=== PATIENT | male | born 1935 | race Caucasian/White ===

== ENCOUNTER 2020-06-19 03:45 | Inpatient (IN) | payer MEDICARE, SELFPAY ==
[2020-06-19] VITALS (8 sets, daily range): BP systolic 102–123; BP diastolic 38–53; PULSE 57–87; RESP 14–20; TEMP 36.6–37.2; O2SAT 95–100; BMI 20.7; BMI 21.5
--- NOTE | 2020-06-19 03:50 | CT_ITS ---
STUDY: CT BRAIN WITHOUT CONTRAST REASON FOR EXAM: Male, 84 years old. confusion RADIATION DOSAGE (If Supplied By Facility): CTDIvol = ( 44.99 ) mGy, DLP = ( 1749.70 ) mGycm TECHNIQUE: Transaxial CT imaging of the brain was performed without administration of intravenous contrast material. Individualized dose optimization techniques were used for this CT. COMPARISON: No relevant priors. FINDINGS: Normal soft tissue structures. Normal calvarium. There is a cavum septum pellucidum and a cavum septum vergae, a minor developmental anomaly. There is mild cerebral atrophy with widening of the extra-axial spaces and ventricular dilatation. Normal white matter tracts of the cerebral hemispheres. Normal basal ganglia and thalami. Normal brainstem. Normal cerebellum. There is atherosclerotic calcification of the cavernous carotid arteries. There is no intracranial hemorrhage. There are no findings of an acute ischemic infarction. Normal visualized paranasal sinuses. CT/Brain/Head without Contrast IMPRESSION: Chronic involutional changes of the brain. No demonstrated acute intracranial process. Electronically Signed: Nino Boothe MD at 7:21 EDT , Service support ,
--- NOTE | 2020-06-19 03:50 | RAD_ITS ---
STUDY: X-RAY CHEST REASON FOR EXAM: Male, 84 years old. cough TECHNIQUE: 2 AP portal views were obtained. COMPARISON: None. FINDINGS: There is a right internal jugular Port-A-Cath with its tip overlying the superior vena cava. The lungs are hyperexpanded. There is diffuse interstitial prominence in the lungs which is probably chronic. There are no confluent pulmonary infiltrates. There is a 2.5 cm rounded density overlying the medial right upper lung field and there is a 4 cm density overlying the left upper lung field. The density on the right might represent a costal cartilage calcification, however, the density on the left is not overlying the expected region of costal cartilage and is more suspicious for a lung nodule. There is no demonstrated pleural abnormality. Normal size heart. Normal mediastinum and ranjeet. There is atherosclerotic calcification of the aortic arch. There are no demonstrated acute fractures or destructive bone lesions. There is no demonstrated abnormality of the visualized soft tissue structures of the upper abdomen. RAD/Chest 1 View (Portable) IMPRESSION: Hyperexpansion of the lungs and diffuse interstitial prominence, probably representing COPD. Tentative identification of upper lobe lung nodules bilaterally. Suggest comparison with previous studies if available. Otherwise, would suggest CT scan chest for further evaluation. No demonstrated acute pulmonary infiltrate. Port-A-Cath. Electronically Signed: Nino Boothe MD at 6:04 EDT , Service support ,
--- NOTE | 2020-06-19 03:50 | EKG12_ITS ---
Test Reason : DYSRYTHMIA Blood Pressure : / mmHG Vent. Rate : 064 BPM Atrial Rate : 064 BPM P-R Int : 168 ms QRS Dur : 152 ms QT Int : 484 ms P-R-T Axes : 026 -73 087 degrees QTc Int : 499 ms Sinus rhythm with occasional Premature ventricular complexes Left axis deviation Left bundle branch block Abnormal ECG Confirmed by LENA LONG, TERRIE ([id number]), advertising editor KATH SANDOVAL ([id number]) on 06/22/2020 8:48:55 AM Referred By: MARTELL Confirmed By:TERRIE PAREDES MD
--- NOTE | 2020-06-19 04:34 | ED.VIS.GEN ---
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 The patient has recently moved here from [place]. Is been living with family. His daughter found him in the kitchen tonight. He seemed confused when she was trying to talk to him. He was also very tearful. He was repeating himself. The patient did admit to taking an extra [place] tonight to help with his chronic back pain. He denies any fevers. He states over the past 2 or 3 days, he is just felt rundown worn out. He denies chest pain. He denies headache or visual change. He states he has been having a difficult time with his back pain. His Li catheter was recently replaced about 2 weeks ago. He is following with urology through the [facility] [place] system. Prior similar symptoms: No Recent Illness/Hospitalization: No Past Medical History - Allergies and Home Meds Allergies/Adverse Reactions: Allergies No Known Allergies Allergy (Verified 06/19/20 03:53) Primary Care Physician: Reyes Carmona MD [Primary Care Provider] - Prior records reviewed: Yes Past Medical History: - - COPD, hypertension, CHF, BPH Surgical History: colectomy Smoking Status: Current some day smoker Review of Systems General: Denies: Chills, Fever, Sweats Eyes: Denies: Visual changes - bilaterally, Diplopia ENT: Denies: Rhinorrhea, Sore throat Cardiovascular: Denies: Chest pain, Palpitations Respiratory: Denies: Dyspnea, Cough, Dyspnea on exertion Gastrointestinal: Denies: Abdominal pain, Nausea, Vomiting, Diarrhea, Melena, Hematochezia Genitourinary: Denies: Dysuria, Hematuria, Frequency Musculoskeletal: Denies: Back pain, Extremity Pain Skin: Denies: Rash, Wounds Neurological: Denies: Headache, Weakness, Numbness Physical Exam Vital Signs/Narrative: Vital Signs Temp Pulse Resp BP Pulse Ox 06/19/20 03:46 98.3 F 84 14 117/44 L 100 Inital Vital Signs reviewed: Yes General: Well nourished, Well developed, No Acute Distress Head: Normocephalic, Atraumatic Eyes: Perrl, EOMI ENT: Moist mucous membranes, No rhinorrhea Neck: Supple, Nontender Cardiovascular: Regular rate, Regular rhythm, No murmurs Respiratory: No distress, CTA bilaterally, Chest nontender Abdomen: Soft, Nontender, Nondistended, Normal bowel sounds, - - Ostomy is intact. Midline hernia which is reproducible and reducible. No significant tenderness Back: Nontender, Normal Inspection Extremities: Nontender, No edema Skin: Normal color, No rash Neurological: Alert, Oriented x3, Cranial nerves II-XII grossly intact, Normal Strength, Normal Sensation Psychological: Normal affect, Normal Mood Diagnostic/Tx/Re-eval Chest X-Ray - ED: 1 View, Read by ED Physician, Normal, Mediastinum, Bony Structures, Chronic Changes, No Infiltrates - Rhythm Strip Rhythm Strip: Sinus Rhythm Rate: 60 Ectopy: PVC(s) - EKG Initial EKG Interpretation: Sinus Rhythm, No Acute Injury Pattern Prior: No Prior - Medical Decision Making Patient presents with change in mental status. Metabolic work-up was pursued. Chest x-ray is obtained. Is read by both myself and the radiologist. There were changes consistent with COPD, but no focal infiltrative process or evidence of volume overload. EKG was obtained. Was sinus rhythm with a PVC. I have no old to compare to. There is left bundle branch block. Patient has not been having chest pain or dyspnea. Screening labs do show leukocytosis. Otherwise, labs are unremarkable. Noncontrast head CT is obtained. Patient does have indwelling Li, but his urine does appear to be positive. My suspicion is that his delirium is multifactorial. He is on opiate analgesics. He has an indwelling Li with infection. He is in a new environment and he appears to be thin and frail. At this point, I am going to treat the patient with IV antibiotics. Given his change in mental status, I do feel that he warrants admission. Impression 1. Urinary tract infection 2. Delirium ED Disposition - Plan for ED Patient: Referrals: Reyes Carmona MD [Primary Care Provider] -
[2020-06-19 04:44] LABS: Absolute Lymphocyte Count 0.97 X10^3/uL (0.83-4.51); Absolute Neutrophil Count 10.1 X10^3/uL (2.0-7.7); Basophil# 0.05 X10^3/uL; Basophil% 0.4 % (0-1); Eosinophil# 0.23 X10^3/uL; Eosinophils% 1.8 % (0-5); Hematocrit 33.3 % (40-54); Hemoglobin 10.9 g/dL (13.0-16.5); Lymphocyte # 0.97 X10^3/ul (0.83-4.51); Lymphocyte % 7.6 % (19-41); Mean Corp Hgb Conc 32.7 g/dL (32-36); Mean Corpuscular Hgb 32.2 pg (27.0-32.0); Mean Corpuscular Volume 98.2 fL (80-94); Mean Platelet Vol. 9.7 fl (6.2-12.0); Monocyte# 1.23 X10^3/uL; Monocyte% 9.7 % (0-10); NRBC Flagged by Analyzer 0 % (0-5); Neutrophil # 10.13 X10^3/uL (2.7-7.7); Neutrophil % 79.9 % (47-70); Platelet Count 268 K/mm3 (150-450); RBC Distribution Width CV 13.2 % (11.6-14.6); RBC Distribution Width SD 47.1 fl (35.1-43.9); Red Blood Count 3.39 M/mm3 (4.6-6.2); White Blood Count 12.7 K/mm3 (4.4-11.0)
[2020-06-19 04:53] LABS: International Normalized Ratio 1.1; Prothrombin Time (Protime)PT. 13.7 SECONDS (11.7-14.9)
[2020-06-19 04:59] LABS: Alcohol, Blood (Medical)-Serum < 3.0 mg/dL
[2020-06-19 05:01] LABS: BNP,B-Type NATRIURETIC PEPTIDE 77.4 pg/mL (0-100)
[2020-06-19 05:02] LABS: ALB/GLOB Ratio 0.7 RATIO (0.9-2.4); AST(SGOT) 30 U/L (15-37); Alanine Aminotransfer ALT/SGPT 24 U/L (16-61); Albumin, Serum 2.7 g/dL (3.2-5.0); Alkaline Phosphatase 90 U/L (45-117); Anion Gap 5 (5-15); BUN 14 mg/dL (7-18); BUN/Creat Ratio 17.9 RATIO (10-20); Calcium,Total 9.1 mg/dL (8.5-10.1); Chloride 95 mmol/L (98-107); Creatinine, Serum 0.78 mg/dL (0.70-1.30); EST Glomerular Filtration Rate 101 mL/min (>60); Est Glom Filt Rate - Afr Amer 122 mL/min (>60); Estimated Creatinine Clearance 54.21 ml/min; Globulin 4.1 g/dL (2.2-4.2); Glucose 84 mg/dL (74-106); Potassium 3.7 mmol/L (3.5-5.1); Protein, Total 6.8 g/dL (6.4-8.2); Sodium Level 132 mmol/L (136-145)
[2020-06-19 05:47] LABS: Mucous, Urine 0 SEEN /hpf (<or=2+); Squamous Epithelial Cells - UA 0 SEEN /hpf (0-5)
[2020-06-19 05:48] LABS: Color, Urine Yellow (Yellow); Glucose, Dipstick Normal (Normal); Ketone-Dipstick Negative (Negative); Leukocyte Esterase-Dipstick 500 /ul (Negative); Nitrite-Dipstick Positive (Negative); Occult Blood-Urine 150 /ul (Negative); Protein-Dipstick 30 mg/dl (Negative); Urine Bilirubin Dipstick Negative (Negative); Urine Clarity Sl. Cloudy (Clear); Urine Urobilinogen 1 mg/dl (Normal)
[2020-06-19 05:55] LABS: Bacteria 4+ /hpf (None Seen); Red Blood Cells-Urine 25-50 SEEN /hpf (0-5); White Blood Cells 25-50 SEEN /hpf (0-5)
[2020-06-19] MEDS: Ceftriaxone 1 GM/50 ML BAG IV (06:19)
--- NOTE | 2020-06-19 06:34 | CT_ITS ---
We are attempting to reach an attending provider to discuss findings. An addendum with communication details will be sent when the communication is complete. STUDY: CT CHEST, ABDOMEN T PELVIS WITH CONTRAST REASON FOR EXAM: Male, 84 years old. Colon cancer RADIATION DOSAGE (If Supplied By Facility): CTDIvol = ( 12.54 ) mGy, DLP = ( 865.35 ) mGycm TECHNIQUE: Transaxial imaging was performed following intravenous administration of IV 75mL Isovue-370. Multiplanar coronal and sagittal images were reformatted. Individualized dose optimization techniques were used for this CT. COMPARISON: No relevant priors. FINDINGS: CHEST There are scattered emphysematous blebs throughout the lungs. There is a hyperinflated appearance of the right lung. There is a age indeterminant patchy focus of density within the left lung base that emanates from the inferior aspect of the hilum and a almost masslike appearance, see image #85 measuring 2.3 x 2.0 cm with peribronchial inflammatory change. There is a trace amount of left pleural thickening. There is no demonstrated pleural abnormality. There is mild cardiac enlargement. There is calcification of the left anterior descending coronary artery. There is a precarinal lymph node measuring 1.5 cm. In AP window lymph node measuring 1.5 cm. There is a subcarinal lymph node measuring 2 cm. Normal hilar regions. Normal unenhanced pulmonary arteries. The ascending thoracic aorta measures 2.5 x 3.9 cm. The aorta is tortuous partially calcified. The descending thoracic aorta measures 2.7 x 2.9 cm. The bones are fairly osteopenic. There is multilevel osteophytosis bridging osteophytosis. There is a visualized benign-appearing right renal cyst measuring 2.7 x 2.7 cm. The remainder of the upper abdomen and pelvis will be discussed on the dedicated CT scan of the abdomen and pelvis. ABDOMEN There is a focus of left perihilar infiltrate atelectasis and a potentially atypia. There is borderline cardiac enlargement there is coronary calcification. There is mild prominence of the visualized portal vein measuring up to 1.2 cm. No significant anterior extra hepatic ductal dilatation. Normal gallbladder and extrahepatic biliary system. Normal spleen. There is trace distention of the pancreatic duct. Otherwise the pancreas appears grossly normal. Normal bilateral adrenal glands. There is mild right hydronephrosis. There is distention of the ureter to the level of the bladder. There is an upper pole right renal cyst with benign features measuring 2.7 x 2.7 cm. There is a lower pole cyst measuring 3.5 x 3.6 cm. There is a right-sided peripelvic cyst measuring 2.2 x 1.9 cm. There is a left-sided peripelvic cyst measuring 6.4 x 5.0 x 5.0 cm. There is no visualized hydronephrosis. The stomach is decompressed. There are multiple distended loops of small bowel within the right lower quadrant, see image #19. This is associated with a visualized rest of the bowel around the mesentery compatible with volvulus see images 61 through 95. There is a rightward twist and distention of the proximal small bowel. There is a relative decompressed appearance of the distal small bowel. The visualized postoperative change in the right lower quadrant that may involve the colon and/or distal small bowel. There is crowding in the vicinity. There is a left lower quadrant colostomy which the descending colon partially filled with stool extends. There is crowded in the left side of the abdomen. There is moderate stool in the ascending colon and transverse colon carotid in the right side of the abdomen. The appendix is visualized and appears normal. There is diffuse atherosclerotic calcification of the abdominal aorta with elongation and tortuosity, but without a demonstrated aneurysm. Normal inferior vena cava. There are multiple low attenuating lymph nodes in the retroperitoneum on the right side of the aorta measuring 2.8 x 1.9 cm collectively and on the left side measuring 1.7 x 2.0 cm. These extend to the level of the bifurcation. Abdominal wall is protruding at the level of the distention of the small bowel. Small bowel at this level measures up to 4 cm. There are diffuse degenerative changes of the visualized lumbar spine. PELVIS The bladder is decompressed around a Li catheter. There is an ill-defined appearance of the bladder and bladder wall. The bladder wall may be thickened up to 1.7 cm. There is hyperdensity in and about the bladder which may represent partial calcification. There are calcifications within the base of the pelvis possibly associated with the prostate although there is limited distinguish fatty planes between the bladder and the prostate tissue or remaining tissue. There is trace free fluid within the pelvis. There is presacral stranding and postoperative change status post colectomy. There is a low surgical clip suggesting resection of the rectum and sigmoid colon. There is a mid gut volvulus and distention of the right lower quadrant small bowel. There is moderate stool within the colon. There is a left lower colostomy. There is a minimal amount of free fluid in the pelvis. There is diffuse atherosclerotic calcification of the pelvic arteries. There is a left lower colostomy. In the midline and there are distended loops of small bowel that likely are visible protruding in the abdomen. There is bony osteopenia. There is multilevel disc space narrowing and endplate sclerosis spondylosis. At the level of L2-L3, L3-L4 L4-L5 there is broad disc bulge with moderate to severe neural foramina narrowing moderate central stenosis. At L5-S1 there is no significant neural foramina narrowing there is facet arthropathy. There is degenerative change of the SI joints. CT/CT Chest, Abd, Pel w/Contrast IMPRESSION: CT chest: Pulmonary emphysema chronic obstructive pulmonary disease abnormal appearing left infrahilar consolidation and/or developing mass with associated inflammatory change or posterior instructed inflammatory change. A comparison to prior study would be very helpful if available. Coronary artery disease borderline cardiomegaly. CT abdomen and pelvis: Mild right hydronephrosis distention of the right ureter possibly associated with abnormal thick walled appearance of the bladder for which cystitis could be considered. Bilateral benign-appearing renal cysts. There is a poor distinction between the prostate calcified tissue and the base of the bladder. Recommend correlation with clinical history and laboratory values. There is a visualized twist around the mid mesentery suggesting age indeterminate mid gut volvulus with distended small bowel within the right to midline abdomen measuring up to 4 cm suspicious for small bowel obstruction or high-grade partial small bowel obstruction. There is distention of the small bowel loops in this vicinity in the right lower quadrant with decompressed terminal ileum. There is moderate stool within the colon. There is a left lower colostomy status post partial colectomy. There is abnormal periaortic lymphadenopathy suggesting metastatic disease or ongoing inflammatory change could be involving the possibility of the chest, bowel or bladder. Multilevel degenerative change of the thoracolumbar spine. Atherosclerotic disease of the aorta. Electronically Signed: Rebekah Matthews MD at 10:10 EDT Tel , Service support ,
--- NOTE | 2020-06-19 06:34 | NURSING ---
MED SURG WHITE UTI, DELIRIUM
--- NOTE | 2020-06-19 07:00 | PCM.HP.STD ---
Problem List (1) Acute encephalopathy Status: Acute (2) Complicated UTI (urinary tract infection) Status: Acute (3) Indwelling Campbell catheter present Status: Chronic (4) Abdominal mass Status: Chronic Qualifiers: Abdominal location: unspecified location Qualified Code(s): R19.00 - Intra-abdominal and pelvic swelling, mass and lump, unspecified site (5) History of colorectal cancer Status: Chronic (6) Chronic anemia Status: Chronic (7) Chronic obstructive pulmonary disease (COPD) Status: Chronic Qualifiers: COPD type: unspecified COPD Qualified Code(s): J44.9 - Chronic obstructive pulmonary disease, unspecified (8) HTN (hypertension) Status: Chronic Qualifiers: Hypertension type: essential hypertension Qualified Code(s): I10 - Essential (primary) hypertension (9) HLD (hyperlipidemia) Status: Chronic Qualifiers: Hyperlipidemia type: unspecified Qualified Code(s): E78.5 - Hyperlipidemia, unspecified (10) Tobacco use Status: Chronic (11) Chronic back pain Status: Chronic Qualifiers: Back pain location: back pain in unspecified location Back pain laterality: unspecified Qualified Code(s): M54.9 - Dorsalgia, unspecified; G89.29 - Other chronic pain (12) Severe protein-calorie malnutrition Status: Chronic History of Present Illness Date of Admission: 06/19/20 Chief Complaint: Confusion The patient is an 84 y/o M recent moved to live with his daughter from [place] ~ 1 month prior to current presentation w/ PMHx: Hx Colorectal cancer s/p colectomy w/ ostomy 2013, 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 Patient reports increased fatigue, malaise over the last 2-3 days. Patient also over the last 2 weeks has developed bilateral lower extremity significant pitting edema with discomfort to his legs. His daughter notes that when he called her to move back to [place] he specifically stated he wanted to come back to [place] and felt like he was going to . Per his daughter's report he was diagnosed with some kind of stomach mass approximately 2 years prior and was not felt a candidate for removal and she has requested records from [place] but is yet to be given these records. Work-up in the ED included T 98.3, HR 84, BP 117/44, RR 14, 100% on RA, CBC with WBC 12.7, hemoglobin 10.9, platelet 268 with left shift, unremarkable PT and INR, CMP with sodium 132, chloride 95 otherwise unremarkable, BNP 77.4, ethyl alcohol level less than 3, lactic acid 2.0, blood culture x2 pending per ED, rapid Covid antigen negative, UA notable w/ pending UCx, CXR and CT Head pending upon evaluation. In the ED patient administered IV rocephin and IVFs. Past Medical History Past Medical History (Chronic Problems): Chronic Problems Indwelling Campbell catheter present (Chronic) Abdominal mass (Chronic) History of colorectal cancer (Chronic) Chronic anemia (Chronic) Chronic obstructive pulmonary disease (COPD) (Chronic) HTN (hypertension) (Chronic) HLD (hyperlipidemia) (Chronic) Tobacco use (Chronic) Chronic back pain (Chronic) Severe protein-calorie malnutrition (Chronic) Allergies No Known Allergies Allergy (Verified 06/19/20 03:53) Home Medications: Ambulatory Orders Medication Instructions Recorded Atorvastatin Calcium [Lipitor] 40 mg PO QHS 06/19/20 Carvedilol [Coreg] 3.125 mg PO BID 06/19/20 Fluticasone/Umeclidin/Vilanter 1 each PO DAILY 06/19/20 [Trelegy Ellipta 100-62.5-25] Furosemide [Lasix] 20 mg PO DAILY 06/19/20 Gabapentin [Neurontin] 300 mg PO BID 06/19/20 Hydrocodone/Acetaminophen 1 each PO Q8H PRN PRN 06/19/20 [Hydrocodon-Acetaminophen 5-325] Potassium Chloride 10 meq PO DAILY 06/19/20 Vit C/E/Zn/Coppr/Lutein/Zeaxan 1 each PO BID 06/19/20 [Preservision Areds 2 Softgel] Surgical History: colectomy - Colectomy with ostomy. Psychiatric History: No pertinent psych hx Lives: With Family - Currently living with his daughter, recently moved from [place] approximately 1 month prior to current presentation. Smoking Status: Current every day smoker - Patient with ongoing 1.5 pack/day cigarette tobacco usage ongoing x > 50 years. Tobacco Use: Cigarettes Alcohol: None Drugs: None - *Family History Maternal History Items: - - Maternal family history of significant neuropathy, lived to the age of 100. Paternal History Items: - - Paternal family history of aneurysm. Review of Systems Constitutional: Reports: Anorexia, Malaise, Weakness, Fatigue. Denies: Chills, Fever, Weight Change HEENT: Denies: Head Aches, Sinus Congestion, Sinus Drainage Cardiovascular: Reports: Edema. Denies: Chest Pain, Chest Pressure, Chest Tightness, Orthopnea, Palpitations, Syncope Respiratory: Reports: Shortness of breath upon exertion. Denies: Cough, Shortness of Breath, Shortness of breath at rest, Sputum production Gastrointestinal: Reports: Abdominal Pain. Denies: Nausea, Vomiting Genitourinary: Reports: Retention. Denies: Dysuria Musculoskeletal: Reports: Back Pain, Joint Pain. Denies: Joint Tenderness Skin: Denies: Rash, Wounds Neurological: Reports: Confusion. Denies: Focal weakness, Numbness, Tingling Psychiatric: Denies: Anxiety, Depression, Homicidal Ideations, Suicidal Ideations Hematologic/ Lymphatic: Denies: Easy Bruising, Easy Bleeding VTE Information - Inpt Only VTE Present on Admission: No VTE Mechan Device Prophylaxis: SCD's VTE Pharm Prophylaxis ordered?: Yes Patient Problems: Active and Suspected Problems Acute encephalopathy (Acute) Complicated UTI (urinary tract infection) (Acute) Subjective: Patient laying in the ED bed, lethargic, fatigued. Objective: Physical Examination: General: Patient very fatigued and lethargic, does awaken but not alert and not able to answer orientation questions, laying in the ED bed. Skin: normal color, turgor, no icterus, cyanosis occasional staged ecchymoses. HEENT: AT/NC, EOMI, PERRLA, dry MM, no carotid bruits or JVD noted. Lungs: CTA bilaterally, moderate effort, mild decrease BL bases, no rales, ronchi or wheezing. Heart: Regular rate and rhythm; no gallop, rub audible. Abdomen: soft, cachectic habitus, no grimacing with palpation of his abdomen, no distention specifically, ostomy in place with appropriate output in bag, mildly hyperactive bowel sounds, no obvious HSM. Extremities: no cyanosis or clubbing, significant pedal to knee 3+ pitting edema, tender to palpation. Neurological: Patient very fatigued and lethargic, does awaken but not alert and not able to answer orientation questions, laying in the ED bed; cognitive function not baseline intact; pupils equally reactive to light and accomodation; cranial nerves difficult to assess given lethargy, moving extremities to stimuli, strength severely globally decreased secondary to acute presentation. Psychiatric: affect appears flat, lethargic, no acute evidence of depressive or anxiety feelings. - Physical Exam Vitals/I&O's: Vital Signs Temp Pulse Resp BP Pulse Ox 98.4 F 57 L 15 103/48 L 97 06/19/20 05:44 06/19/20 05:44 06/19/20 05:44 06/19/20 05:44 06/19/20 05:44 Oxygen Delivery Method Room Air Weight: 148 lb 5.938 oz Body Mass Index (BMI) 20.7 Microbiology Past 72 Hours 06/19/20 04:00 Nasal Secretion SARS-CoV-2 Antigen (Rapid) - Final Laboratory Results 06/19/20 04:30: WBC 12.7 H, RBC 3.39 L, Hgb 10.9 L, Hct 33.3 L, MCV 98.2 H, MCH 32.2 H, MCHC 32.7, RDW Std Deviation 47.1 H, RDW Coeff of Harjinder 13.2, Plt Count 268, MPV 9.7, Immature Gran % (Auto) 0.600, Neut % (Auto) 79.9 H, Lymph % (Auto) 7.6 L, Pepin % (Auto) 9.7, Eos % (Auto) 1.8, Baso % (Auto) 0.4, Absolute Neuts (auto) 10.1 H, Absolute Lymphs (auto) 0.97, Nucleated RBC % 0 06/19/20 04:30: PT 13.7, INR 1.1 06/19/20 04:30: Sodium 132 L, Potassium 3.7, Chloride 95 L, Carbon Dioxide 32.0, Anion Gap 5, BUN 14, Creatinine 0.78, Estim Creat Clear Calc 54.21, Est GFR (MDRD) Af Amer 122, Est GFR (MDRD) Non-Af 101, BUN/Creatinine Ratio 17.9, Glucose 84, Calcium 9.1, Total Bilirubin 0.50, AST 30, ALT 24, Alkaline Phosphatase 90, Total Protein 6.8, Albumin 2.7 L, Globulin 4.1, Albumin/Globulin Ratio 0.7 L 06/19/20 04:30: Lactic Acid 2.0 06/19/20 04:30: B-Natriuretic Peptide 77.4 06/19/20 04:30: Ethyl Alcohol < 3.0 06/19/20 05:42: Urine Color Yellow, Urine Clarity Sl. Cloudy, Urine pH 8.0, Ur Specific [place] 1.010, Urine Protein 30 H, Urine Glucose (UA) Normal, Urine Ketones Negative, Urine Occult Blood 150 H, Urine Nitrite Positive H, Urine Bilirubin Negative, Urine Urobilinogen 1 H, Ur Leukocyte Esterase 500 H, Urine RBC 25-50 SEEN, Urine WBC 25-50 SEEN, Ur Squamous Epith Cells 0 SEEN, Urine Bacteria 4+, Urine Mucus 0 SEEN Current Medications Ceftriaxone Sodium (Rocephin) 1 gm in 50 mls @ 100 mls/hr IV X1 ONE Stop: 06/19/20 06:28 Assessment/Plan All Active Problems Acute encephalopathy (Acute) Complicated UTI (urinary tract infection) (Acute) The patient is an 84 y/o M recent moved to live with his daughter from [place] ~ 1 month prior to current presentation w/ PMHx: Hx Colorectal cancer s/p colectomy w/ ostomy 2013, 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 1. 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 Will admit to [facility] upon ED evaluation remarkable, pending UCx, will change campbell catheter upon admission, continue IVFs, monitor I/Os, continue IV Rocephin w/ transition as able pending sensitivities and speciation. Bld cx x 2 obtained in the ED. 2. Unclear abdominal mass per patient/daughter report with new onset bilateral lower extremity pitting edema: Notable concern for metastatic disease as etiology, discussed with ED physician and will obtain CT chest, abdomen and pelvis with IV contrast given concurrent noted #3 lung nodules incidentally. Daughter has been requesting records from [place] however these not been successfully obtained therefore will attempt request via hospital. Do suspect underlying metastatic disease. Duplex US pending. 4. Incidental Lung Nodule: CXR w/ incidental upper lobe lung nodules BL, pending CTPA given concern for abdominal mass. 5. Hx Colorectal cancer: s/p colectomy w/ ostomy placement 2013, remission status, will continue routine ostomy care. 6. Macrocytic anemia: Unclear if chronic as no comparison labs, admission hemoglobin 10.9, MCV 98.2, iron panel, ferritin, vitamin B12 and folic acid levels pending. 7. Chronic COPD: We will temporarily hold patient home inhaler and transition to ATC duonebs, PRN albuterol, HOB, IS parameters. 8. Hypertension: Continue home regimen including Coreg, Lasix with hold parameters, PRN hydralazine. 9. Hyperlipidemia: Continue home statin regimen. 10. Tobacco Abuse: Encouraged cessation, inpatient consultation per RT, NR if desired. 11. Chronic back pain w/ neuropathy: Recent pain regimen start ~ 3 days prior to current presentation, more confused since onset complicated by #1. Given current confusion we will hold recently initiated narcotic. 12. Severe protein calorie malnutrition: Evidenced by habitus, obvious muscle and fat loss, cachectic, nutrition consulted. 13. DVT prophylaxis: SCDs, Lovenox. 14. CODE status: Patient HCPOA is his daughter Jaime Cueto and unclear if living will is in place. Discussed CODE status at length including difference between FULL code, DNR-CCA and DNR-CC status with his daughter who is present but not specifically his healthcare power of rn documentation and she notes following these discussions that he has been a full code. Discussed current presentation and concern for likely metastatic cancer in addition to acute presentation for complicated UTI. Family is amenable to palliative consultation. Advanced Care Planning Face to Face Time: 16 minutes. Inpatient E&M: 57905 Init Hosp L3 Procedures: 64862 Advncd Care Plan 30 Min
--- NOTE | 2020-06-19 07:14 | VDLE_ITS ---
Reason For Study: Pain RIGHT LEFT GSV is normal. GSV is normal. CFV is compressible, spontaneous, phasic, CFV is compressible, spontaneous, phasic, competent and demonstrates normal competent, and demonstrates normal augmentation. augmentation. FV is compressible, spontaneous, phasic, FV is compressible, spontaneous, phasic, competent and demonstrates normal competent and demonstrates normal augmentation. augmentation. POP V is compressible, spontaneous, phasic, POP V is compressible, spontaneous, phasic, competent and demonstrates normal competent and demonstrates normal augmentation. augmentation. T/P Trunk is compressible. T/P Trunk is compressible. PTV is compressible. PTV is compressible. RT PerV is compressible. LT PerV is compressible. Procedure This is a venous duplex using B-mode, color flow and spectral Doppler. Exam performed portable in patient room. A preliminary report was called and/or faxed to [facility]. VL/Venous Duplex US - Eliu Extrem Interpretation Summary No evidence for acute deep venous thrombosis bilateral lower extremities with p atent and compressible bilateral great saphenous veins. Ordering Physician: Summer Carpio Referring Physician: Ryees Carmona Performed By: Jodie Mera RVT
[2020-06-19 07:44] LABS: Magnesium 2.3 mg/dL (1.6-2.6); Phosphorus 2.3 mg/dL (2.5-4.9)
--- NOTE | 2020-06-19 07:56 | PCM.PN.BLA ---
Progress Note Patient is an 84-year-old gentleman with chronic indwelling Li catheter admitted with altered mental status work-up was consistent with acute complicated UTI admitted to regular nursing for further management. Patient seen and examined. His initial assessment including history and physical diagnostic database management specialist orders reviewed will follow. STROKE Vital Signs/Narrative: Vital Signs Temp Pulse Resp BP Pulse Ox 06/19/20 07:12 97.8 F 58 L 20 H 123/49 H 100 06/19/20 06:27 98.5 F 62 18 102/49 L 98 06/19/20 05:44 98.4 F 57 L 15 103/48 L 97
[2020-06-19] MEDS: 0.9% Saline Lock 10 ML Syringe IV (08:38)
[2020-06-19] MEDS: 0.9% Normal Saline 1,000 ML 100 ML IV ×2 (08:39→19:27)
[2020-06-19 08:43] LABS: Reflex Lactate? Y
[2020-06-19] MEDS: Gabapentin 300 MG Capsule PO (09:18)
[2020-06-19] MEDS: Potassium Chloride Oral Tablet 10 MEQ PO (09:19)
[2020-06-19] MEDS: Enoxaparin 40 MG/0.4 ML Syringe SC (09:21)
[2020-06-19] MEDS: Famotidine 20 MG Tablet PO (09:23)
[2020-06-19] MEDS: Carvedilol 3.125 MG TABLET PO (09:23)
[2020-06-19] MEDS: Furosemide 20 MG Tablet PO (09:23)
[2020-06-19] MEDS: HYDROcodone Bitartrate/Apap 5/325 Tablet PO ×2 (09:33→21:02)
[2020-06-19 09:35] LABS: Lactic Acid 0.7 mmol/L (0.4-1.9)
[2020-06-19] MEDS: Ipratropium/Albuterol Sulfate 3 ML AMPUL.NEB INHALATION ×2 (11:41→19:24)
--- NOTE | 2020-06-19 12:11 | NT.THERAPY_ITS ---
Nutrition Therapy Report - History Nutrition Services has been consulted to:: Manage nutrient details of diet order Current diet / nutrition support order:: Cardiac; Ensure Enlive 120 ml 4x/day medpass - Anthropometric Measurements Height:: 5 ft 9 in Weight:: 66.1 kg Body Mass Index (BMI):: 21.5 - Relevant Labs Relevant Labs:: WBC 12.7 K/mm3 (4.4-11.0) H 06/19/20 04:30 RBC 3.39 M/mm3 (4.6-6.2) L 06/19/20 04:30 Hgb 10.9 g/dL (13.0-16.5) L 06/19/20 04:30 Hct 33.3 % (40-54) L 06/19/20 04:30 MCV 98.2 fL (80-94) H 06/19/20 04:30 MCH 32.2 pg (27.0-32.0) H 06/19/20 04:30 RDW Std Deviation 47.1 fl (35.1-43.9) H 06/19/20 04:30 Neut % (Auto) 79.9 % (47-70) H 06/19/20 04:30 Lymph % (Auto) 7.6 % (19-41) L 06/19/20 04:30 Absolute Neuts (auto) 10.1 X10^3/uL (2.0-7.7) H 06/19/20 04:30 Sodium 132 mmol/L (136-145) L 06/19/20 04:30 Chloride 95 mmol/L (98-107) L 06/19/20 04:30 Phosphorus 2.3 mg/dL (2.5-4.9) L 06/19/20 04:30 Albumin 2.7 g/dL (3.2-5.0) L 06/19/20 04:30 Albumin/Globulin Ratio 0.7 RATIO (0.9-2.4) L 06/19/20 04:30 - Assessment Food / Nutrition-Related History:: States living w/ roomate- unable to cook self meals. States requires help from roomate/neighbors to prepare meals. Able to prepare banana w/ milk or soup himself. Question pt living situation per EMR reported moved to live with his daughter from [place] ~ 1 month prior to current presentation. States decreased intake w/ no appetite- consuming 0-2 meals per day. Will try to eat at least b-fast & sometimes 2nd meal L/D. States chewing difficulty d/t poor dentition- consuming soft foods at home, unable to tolerate meats (chicken/pork/beef). Notes no swallowing difficulty. Experiencing nausea x 2-3 weeks. Notes wt prior to dx CA 255#- wt x 1 year 134#, w/ wt maintaining x 6 months at ~144#.+NFPE- severe temporal scooping/depression, severe orbital bone depression/hollow look, severe clavicle bone protrusion, moderate depression of interosseous muscle of R hand. - Nutrition Diagnosis Problem / Etiology / Signs & Symptoms (PES):: Severe malnutrition in the context of chronic condition/illness RT inadequate oral intake & inability to prepare own meals AEB pt reports consuming </=50% energy intake compared to estimated energy needs > 1 month, severe temporal scooping/depression, severe orbital bone depression/hollow look, severe clavicle bone protrusion, moderate depression of interosseous muscle of R hand. Evidence of Malnutrition Exists:: Yes Severe PCM:: Chronic Illness - Nutrition Intervention Nutrition Prescription:: 0818-5738 calories. 65-75 g protein. 4745-6072 ml fluid - Food / Nutrient Delivery Interventions Nutrition support ordered as / adjusted to:: Will provide Regular- no added salt diet w/ soft & bite sized textures, regular liquids. Will provide ONS ensure pudding/magic cup w/ meals & continue Ensure Enlive 120 ml w/ medpass. - MNT Monitoring Further MNT monitoring and evaluation required?: Yes MNT Follow-up in:: 3-5 days
[2020-06-19] MEDS: Menthol/Lanolin/Calamine/Znox 113 GM Tube 1 APPLIC TOPICAL ×2 (15:24→21:07)
[2020-06-20] VITALS (9 sets, daily range): BP systolic 99–136; BP diastolic 38–58; PULSE 61–85; RESP 16–20; TEMP 36.8–37.8; O2SAT 95–99
[2020-06-20] MEDS: 0.9% Normal Saline 1,000 ML 100 ML IV ×2 (05:03→15:54)
--- NOTE | 2020-06-20 06:32 | RAD_ITS ---
STUDY: X-RAY - ABDOMEN/PELVIS REASON FOR EXAM: Male, 84 years old. Small bowel obstruction TECHNIQUE: AP supine and upright views of the abdomen and pelvis. COMPARISON: CT dated 06/19/20 FINDINGS: There is no bowel obstruction. There is air and stool to the level of the rectum. There is stable constipation. There is no free air. The visualized osseous structures are within normal limits. RAD/Abd Inc Decub and/or Erect IMPRESSION: No bowel obstruction. Stable constipation. Electronically Signed: Gary Miles MD at 13:31 EDT Tel , Service support ,
[2020-06-20] MEDS: 0.9% Saline Lock 10 ML Syringe IV ×2 (07:09→07:42)
[2020-06-20] MEDS: Menthol/Lanolin/Calamine/Znox 113 GM Tube 1 APPLIC TOPICAL ×2 (07:09→21:57)
[2020-06-20 07:18] LABS: Absolute Lymphocyte Count 0.78 X10^3/uL (0.83-4.51); Absolute Neutrophil Count 6.8 X10^3/uL (2.0-7.7); Basophil# 0.05 X10^3/uL; Basophil% 0.6 % (0-1); Eosinophil# 0.25 X10^3/uL; Eosinophils% 2.8 % (0-5); Hemoglobin 9.5 g/dL (13.0-16.5); Lymphocyte # 0.78 X10^3/ul (0.83-4.51); Lymphocyte % 8.8 % (19-41); Mean Corp Hgb Conc 32.8 g/dL (32-36); Mean Corpuscular Hgb 32.6 pg (27.0-32.0); Mean Corpuscular Volume 99.7 fL (80-94); Mean Platelet Vol. 9.9 fl (6.2-12.0); Monocyte% 10.2 % (0-10); NRBC Flagged by Analyzer 0 % (0-5); Neutrophil # 6.83 X10^3/uL (2.7-7.7); Neutrophil % 77.1 % (47-70); Platelet Count 224 K/mm3 (150-450); RBC Distribution Width CV 13.4 % (11.6-14.6); Red Blood Count 2.91 M/mm3 (4.6-6.2); White Blood Count 8.9 K/mm3 (4.4-11.0)
[2020-06-20] MEDS: Ipratropium/Albuterol Sulfate 3 ML AMPUL.NEB INHALATION ×2 (07:25→22:42)
[2020-06-20] MEDS: Morphine 2 MG/ML Syringe IV ×2 (07:42→15:54)
[2020-06-20 07:55] LABS: ALB/GLOB Ratio 0.6 RATIO (0.9-2.4); AST(SGOT) 18 U/L (15-37); Alanine Aminotransfer ALT/SGPT 16 U/L (16-61); Albumin, Serum 2.1 g/dL (3.2-5.0); Alkaline Phosphatase 69 U/L (45-117); Anion Gap 5 (5-15); BUN 11 mg/dL (7-18); BUN/Creat Ratio 18.7 RATIO (10-20); Calcium,Total 8.2 mg/dL (8.5-10.1); Chloride 106 mmol/L (98-107); Creatinine, Serum 0.59 mg/dL (0.70-1.30); EST Glomerular Filtration Rate 140 mL/min (>60); Est Glom Filt Rate - Afr Amer 169 mL/min (>60); Estimated Creatinine Clearance 54.62 ml/min; Globulin 3.3 g/dL (2.2-4.2); Glucose 69 mg/dL (74-106); Magnesium 2.2 mg/dL (1.6-2.6); Potassium 3.1 mmol/L (3.5-5.1); Protein, Total 5.4 g/dL (6.4-8.2); Sodium Level 139 mmol/L (136-145)
--- NOTE | 2020-06-20 09:10 | NURSING ---
voicemail message left at phone number of Ana regarding pt PCP office phone number that pt saw in [place], return phone number to [facility] provided.
--- NOTE | 2020-06-20 09:34 | NURSING ---
MR released faxed to Dr. Kiley Lynn office in [place]
[2020-06-20] MEDS: Gabapentin 300 MG Capsule PO ×2 (09:36→15:55)
[2020-06-20] MEDS: Lidocaine 5% Patch 1 PATCH TOPICAL (09:36)
[2020-06-20] MEDS: Carvedilol 3.125 MG TABLET PO ×2 (09:36→21:57)
[2020-06-20] MEDS: Furosemide 20 MG Tablet PO (09:37)
[2020-06-20] MEDS: Potassium Chloride Oral Tablet 10 MEQ PO (09:37)
[2020-06-20] MEDS: Enoxaparin 40 MG/0.4 ML Syringe SC (09:37)
[2020-06-20] MEDS: Famotidine 20 MG Tablet PO ×2 (09:37→21:58)
[2020-06-20] MEDS: HYDROcodone Bitartrate/Apap 5/325 Tablet PO ×2 (09:40→22:08)
[2020-06-20] MEDS: Senna/Docusate Sodium 1 Tablet 2 TABLET PO (09:40)
[2020-06-20] MEDS: Ceftriaxone 1 GM/50 ML BAG IV (09:40)
[2020-06-20] MEDS: Lidocaine 5% Patch 2 PATCH TOPICAL (10:39)
--- NOTE | 2020-06-20 11:22 | PCM.PN.HOSP ---
Patient Problems: Active and Suspected Problems Acute encephalopathy (Acute) Complicated UTI (urinary tract infection) (Acute) Subjective: Doing well, complaining of some low back pain. Does not know where he is but he knows that it is 2020. Vitals/I&O's: Vital Signs Temp Pulse Resp BP Pulse Ox 98.3 F 67 18 116/56 L 98 06/20/20 09:34 06/20/20 09:34 06/20/20 09:34 06/20/20 09:34 06/20/20 09:34 Oxygen Delivery Method Room Air Weight: 149 lb 7.574 oz Body Mass Index (BMI) 21.5 Intake and Output for Last 24 Hours 06/18/20 06/19/20 06/20/20 23:59 23:59 23:59 Intake Total 1900 / 1900 1471.67 / 1471.67 Output Total 1750 / 1750 550 / 550 Balance 150 / 150 921.67 / 921.67 General: Alert, Cooperative, No apparent distress, - - Oriented x2 HEENT: Atraumatic, PERRLA, EOMI, Normocephalic Oral: Moist Mucosa Neck: Supple, No JVD Lungs: Clear to auscultation, Normal air movement, No rhonchi, No wheeze, No rales Cardiovascular: Regular rate, Regular Rhythm, Normal S1, Normal S2, No murmurs Abdomen: Soft, Non Tender, Non-Distended, No Hepato-splenomegaly Extremities: No edema, Capillary Refill Less than 3 Seconds Skin: No rashes, No breakdown Neurological: Neuro grossly intact, Sensory exam intact to light touch and pain Psych/Mental Status: Flat Affect Microbiology Past 72 Hours 06/19/20 04:00 Nasal Secretion SARS-CoV-2 Antigen (Rapid) - Final Laboratory Results 06/20/20 05:40: WBC 8.9, RBC 2.91 L, Hgb 9.5 L, Hct 29.0 L, MCV 99.7 H, MCH 32.6 H, MCHC 32.8, RDW Std Deviation 49.0 H, RDW Coeff of Harjinder 13.4, Plt Count 224, MPV 9.9, Immature Gran % (Auto) 0.500, Neut % (Auto) 77.1 H, Lymph % (Auto) 8.8 L, [place] % (Auto) 10.2 H, Eos % (Auto) 2.8, Baso % (Auto) 0.6, Absolute Neuts (auto) 6.8, Absolute Lymphs (auto) 0.78 L, Nucleated RBC % 0 06/20/20 05:40: Sodium 139, Potassium 3.1 L, Chloride 106, Carbon Dioxide 28.0, Anion Gap 5, BUN 11, Creatinine 0.59 L, Estim Creat Clear Calc 54.62, Est GFR (MDRD) Af Amer 169, Est GFR (MDRD) Non-Af 140, BUN/Creatinine Ratio 18.7, Glucose 69 L, Calcium 8.2 L, Magnesium 2.2, Total Bilirubin 0.60, AST 18, ALT 16, Alkaline Phosphatase 69, Total Protein 5.4 L, Albumin 2.1 L, Globulin 3.3, Albumin/Globulin Ratio 0.6 L Current Medications Acetaminophen (Acetaminophen 325 Mg Tablet) 650 mg PO Q6H PRN PRN PRN Reason: Pain Score 1-10/Temp > 100.7 F Hydrocodone Bitart/Acetaminophen (Hydrocodone Bitartrate/Apap 5/325 Tablet) 1 tablet PO Q8H PRN PRN PRN Reason: Pain 1-10 Last Admin: 06/20/20 09:40 Dose: 1 tablet Documented by: Al Hydroxide/Mg Hydroxide (Mag Hydrox/Al Hydrox/Simeth 30 Ml Udc) 30 ml PO Q6H PRN PRN PRN Reason: Gastric Burning Albuterol Sulfate (Albuterol 2.5 Mg/3 Ml Vial.Neb.) 2.5 mg INHALATION Q2H PRN PRN PRN Reason: Dyspnea, wheezing Albuterol/Ipratropium (Ipratropium/Albuterol Sulfate 3 Ml Ampul.Neb) 3 ml INHALATION Q6HWA.RT [facility] Last Admin: 06/20/20 07:25 Dose: 3 ml Documented by: Atorvastatin Calcium (Atorvastatin Calcium 40 Mg Tablet) 40 mg PO QHS [facility] Last Admin: 06/19/20 20:52 Dose: Not Given Documented by: Calamine/Phenol (Menthol/Lanolin/Calamine/Znox 113 Gm Tube) 1 applic TOPICAL TID [facility]; Protocol Last Admin: 06/20/20 07:09 Dose: 1 applic Documented by: Carvedilol (Carvedilol 3.125 Mg Tablet) 3.125 mg PO BID [facility] Last Admin: 06/20/20 09:36 Dose: 3.125 mg Documented by: Enoxaparin Sodium (Enoxaparin 40 Mg/0.4 Ml Syringe) 40 mg SC DAILY [facility] Last Admin: 06/20/20 09:37 Dose: 40 mg Documented by: Famotidine (Famotidine 20 Mg Tablet) 20 mg PO BID [facility] Last Admin: 06/20/20 09:37 Dose: 20 mg Documented by: Furosemide (Furosemide 20 Mg Tablet) 20 mg PO DAILY [facility] Last Admin: 06/20/20 09:37 Dose: 20 mg Documented by: Gabapentin (Gabapentin 300 Mg Capsule) 300 mg PO BIDCM [facility] Last Admin: 06/20/20 09:36 Dose: 300 mg Documented by: Hydralazine HCl (Hydralazine 20 Mg/Ml Vial) 10 mg IV Q4H PRN PRN PRN Reason: SBP > 160 Sodium Chloride () 1,000 mls @ 100 mls/hr IV .Q10H [facility] Last Infusion: 06/20/20 10:40 Dose: 100 mls/hr Documented by: Ceftriaxone Sodium (Rocephin) 1 gm in 50 mls @ 100 mls/hr IV Q24 [facility] Stop: 06/27/20 10:31 Last Infusion: 06/20/20 10:40 Dose: Infused Documented by: Sodium Chloride () 250 mls @ 15 mls/hr IV .[id number] PRN PRN Reason: Saline Flush Sodium Chloride () 250 mls @ 15 mls/hr IV .[id number] PRN PRN Reason: Additional IVPB Infusion Lidocaine (Lidocaine 5% Patch) 2 patch TOPICAL DAILY [facility]; Protocol Last Admin: 06/20/20 10:39 Dose: 1 patch Documented by: Magnesium Hydroxide (Magnesium Hydroxide 30 Ml Udc) 30 ml PO DAILY PRN PRN PRN Reason: Constipation Melatonin (Melatonin 3 Mg Tablet) 3 mg PO QHS PRN PRN PRN Reason: INSOMNIA Morphine Sulfate (Morphine 2 Mg/Ml Syringe) 2 mg IV Q3H PRN PRN PRN Reason: severe pain 4-10 Last Admin: 06/20/20 07:42 Dose: 2 mg Documented by: Nutritional Formula (Lactose Free) (Ensure Enlive 120 Ml Liquid) 120 ml PO 4X/DAY [facility] Last Admin: 06/20/20 09:08 Dose: Not Given Documented by: Ondansetron HCl (Ondansetron 4 Mg/2 Ml Vial) 4 mg IV Q8H PRN PRN PRN Reason: NAUSEA/VOMITING Potassium Chloride (Potassium Chloride Oral Tablet 10 Meq) 10 meq PO DAILY@0800 [facility] Last Admin: 06/20/20 09:37 Dose: 10 meq Documented by: Prochlorperazine Edisylate (Prochlorperazine 10 Mg/2 Ml Vial) 5 mg IV Q4H PRN PRN PRN Reason: Breakthrough nausea/vomiting Psyllium Hydrophilic Mucilloid (Psyllium 1 Packet) 1 packet PO DAILY PRN PRN PRN Reason: Constipation Senna/Docusate Sodium (Senna/Docusate Sodium 1 Tablet) 2 tablet PO BID PRN PRN PRN Reason: Constipation Last Admin: 06/20/20 09:40 Dose: 2 tablet Documented by: Sodium Chloride (0.9% Saline Lock 10 Ml Syringe) 10 - 40 ml IV UD PRN PRN Reason: SALINE FLUSH Last Admin: 06/20/20 07:42 Dose: 10 ml Documented by: STROKE Vital Signs/Narrative: Vital Signs Temp Pulse Resp BP Pulse Ox 06/20/20 09:34 98.3 F 67 18 116/56 L 98 06/20/20 07:27 96 06/20/20 07:25 64 20 H Medical Necessity - Tobacco Use Smoking Status: Current every day smoker Tobacco Use: Cigarettes Assessment/Plan All Active Problems Acute encephalopathy (Acute) Complicated UTI (urinary tract infection) (Acute) 1. Acute metabolic encephalopathy secondary to UTI with chronic urinary retention and chronic Li -Urine is pending, continue with antibiotic -Li changed on admission -Blood cultures are pending 2. History of colon cancer in 2014 status post colectomy/new abdominal mass with retroperitoneal lymph nodes as well as hilar lymphadenopathy and incidental lung nodule -Unsure the extent of the work-up he has had previously in [place] -Attempting to obtain outpatient records so there is duplication of oncologic work-up -He will need to follow-up with oncology as an outpatient 3. HTN/HLD -Stable -Continue with his home blood pressure medications -Continue with his home statin 4. Chronic COPD -Not currently in exacerbation -Can continue with inhalers 5. Microcytic anemia, unsure if this is chronic -No previous lab work in our system therefore we will wait to receive his outpatient medical information from [facility] 6. Chronic back pain with neuropathy -Given his altered mental status, will hold his recently started narcotic -Continue with topical lidocaine 7. Severe protein calorie malnutrition -Nutrition consult DVT: Lovenox Inpatient E&M: 20640 Subs Hosp L2
--- NOTE | 2020-06-20 12:15 | CASEMGMT ---
RN CM Face to Face with patient for initial transition planning/care coordination assessment. RN CM introduced self and role at [facility]. Patient lying in bed, alert and oriented, daughter at bedside. Patient willing to participate in assessment and is able to answer all questions appropriately. Care providers, pharmacy, and demographics verified. Patient wishes to discharge home, patient is not sure if he would want HHC, will monitor therapy. Patient states he has no further needs or concerns at this time. CM to follow for discharge planning needs that may arise. PCP: Kristine Specialists: none [facility]erred [facility]acy[facility] Insurance: [employer]([facility]) Prescription Benefit: yes Living Will/HPOA: yes, Falguni Cueto LNOK: daughters Living Arrangements: Patient lives with daughter and KAMILAH in a mobile home with 5 steps and railing to enter the home. Patient states he is normally independent at home. Transportation: daughters DME/HHC: Patient states he has walker and nebulizer at home. Patient denies previous HHC. Disposition Plan: Patient to discharge home with family support and follow-up plans in place. Will monitor for HHC pending progress with therapy. Jodie JENKINS, RN, CM
--- NOTE | 2020-06-20 15:49 | CHAPLAIN ---
Type of Pastoral Visit _x__ Initial Visit ___ Follow-up Visit ___ On-call Visit ___ General Patient Visit ___ Spiritual Assessment ___ Family Conference ___ Bereavement ___ Rapid Response ___ Code Blue ___ Other (describe below) Pastoral Care Referral From _x__ Patient ___ Family ___ Nurse ___ Physician ___ Ambulatory Nurse ___ Dandy Operator ___ Other (describe below) Sacrament/Intervention _x__ Active listening ___ Anointing ___ Sikhism ___ Bereavement ___ Communion ___ Sherron exploration ___ _x__ Life review ___ Prayer ___ Reconciliation ___ Sacrament of Sick _x__ Supportive presence ___ Wedding ___ Other (describe below) Pastoral Comments patient complains due to inability to eat because testing results are not yet complete; pt focused on eating but as discussion continues pt gives some life review and details of circumstances of his recent move back to [place] because of poor health; daughter is pt caregiver at this time; pt states he is not sikhism but that he welcomes visits for support; pt has cancer and has been dealing with multiple health issues; pt states that he just deals with what comes; daughter is presence during visit
[2020-06-20] MEDS: Atorvastatin Calcium 40 MG Tablet PO (21:58)
[2020-06-20] MEDS: Budesonide Respules 0.5 MG/2 ML AMPUL.NEB. INHALATION (22:52)
[2020-06-21] MEDS: 0.9% Normal Saline 1,000 ML 100 ML IV ×3 (00:19→21:32)
[2020-06-21] MEDS: Menthol/Lanolin/Calamine/Znox 113 GM Tube 1 APPLIC TOPICAL ×2 (05:03→21:39)
[2020-06-21 07:48] LABS: Anion Gap 5 (5-15); BUN 12 mg/dL (7-18); BUN/Creat Ratio 19.9 RATIO (10-20); Calcium,Total 7.8 mg/dL (8.5-10.1); Chloride 108 mmol/L (98-107); EST Glomerular Filtration Rate 136 mL/min (>60); Est Glom Filt Rate - Afr Amer 165 mL/min (>60); Estimated Creatinine Clearance 54.62 ml/min; Glucose 77 mg/dL (74-106); Potassium 3.1 mmol/L (3.5-5.1); Sodium Level 141 mmol/L (136-145)
[2020-06-21 07:59] LABS: Absolute Lymphocyte Count 0.76 X10^3/uL (0.83-4.51); Absolute Neutrophil Count 5.8 X10^3/uL (2.0-7.7); Basophil# 0.05 X10^3/uL; Basophil% 0.6 % (0-1); Eosinophil# 0.43 X10^3/uL; Eosinophils% 5.5 % (0-5); Hematocrit 29.5 % (40-54); Hemoglobin 9.2 g/dL (13.0-16.5); Lymphocyte # 0.76 X10^3/ul (0.83-4.51); Lymphocyte % 9.6 % (19-41); Mean Corp Hgb Conc 31.2 g/dL (32-36); Mean Corpuscular Hgb 31.1 pg (27.0-32.0); Mean Corpuscular Volume 99.7 fL (80-94); Mean Platelet Vol. 9.7 fl (6.2-12.0); Monocyte# 0.78 X10^3/uL; Monocyte% 9.9 % (0-10); NRBC Flagged by Analyzer 0 % (0-5); Neutrophil # 5.83 X10^3/uL (2.7-7.7); Platelet Count 232 K/mm3 (150-450); RBC Distribution Width CV 13.4 % (11.6-14.6); Red Blood Count 2.96 M/mm3 (4.6-6.2); White Blood Count 7.9 K/mm3 (4.4-11.0)
[2020-06-21 08:48] VITALS: BP 125/61; PULSE 62; RESP 18; TEMP 36.7; O2SAT 95
--- NOTE | 2020-06-21 08:51 | NURSING ---
right chest port but is not being used- pt states he did not keep up with having it flushed so it hasn't been used in quite a long time
[2020-06-21 08:58] VITALS: O2SAT 95
[2020-06-21] MEDS: Gabapentin 300 MG Capsule PO ×2 (09:01→16:45)
[2020-06-21] MEDS: Potassium Chloride Oral Tablet 10 MEQ PO (09:01)
[2020-06-21] MEDS: Lidocaine 5% Patch 2 PATCH TOPICAL (09:05)
[2020-06-21] MEDS: Furosemide 20 MG Tablet PO (09:05)
[2020-06-21] MEDS: Carvedilol 3.125 MG TABLET PO ×2 (09:05→21:39)
[2020-06-21] MEDS: HYDROcodone Bitartrate/Apap 5/325 Tablet PO ×3 (09:06→22:52)
[2020-06-21] MEDS: Enoxaparin 40 MG/0.4 ML Syringe SC (09:06)
[2020-06-21] MEDS: Famotidine 20 MG Tablet PO ×2 (09:06→21:39)
[2020-06-21] MEDS: Ceftriaxone 1 GM/50 ML BAG IV (09:07)
[2020-06-21] MEDS: Senna/Docusate Sodium 1 Tablet 2 TABLET PO (09:09)
[2020-06-21] MEDS: Ipratropium/Albuterol Sulfate 3 ML AMPUL.NEB INHALATION ×2 (10:47→18:59)
[2020-06-21 10:48] VITALS: PULSE 89; RESP 22
[2020-06-21] MEDS: Budesonide Respules 0.5 MG/2 ML AMPUL.NEB. INHALATION ×2 (10:48→18:59)
--- NOTE | 2020-06-21 10:58 | PCM.PN.HOSP ---
Subjective Subjective: Doing well, no issues overnight. He knows what year it is and where he is at today. Objective Data Objective Data Vital Signs: Vital Signs Temp Pulse Resp BP Pulse Ox 98.1 F 89 22 H 125/61 H 95 06/21/20 08:48 06/21/20 10:48 06/21/20 10:48 06/21/20 08:48 06/21/20 08:58 Oxygen Delivery Method Room Air Weight: 149 lb 7.574 oz Body Mass Index (BMI) 21.5 Intake & Output: Intake and Output for Last 24 Hours 06/20/20 06/21/20 06/22/20 03:59 03:59 03:59 Intake Total 1900 / 1900 2956.67 / 2956.67 930 / 930 Output Total 1750 / 1750 2800 / 2800 Balance 150 / 150 156.67 / 156.67 930 / 930 Lab / Micro Data Result Diagrams: 06/21/20 05:10 06/21/20 05:10 Labs: Laboratory Results - last 24 hr 06/21/20 06/21/20 05:10 05:10 WBC 7.9 RBC 2.96 L Hgb 9.2 L Hct 29.5 L MCV 99.7 H MCH 31.1 MCHC 31.2 L RDW Std Deviation 49.0 H RDW Coeff of Harjinder 13.4 Plt Count 232 MPV 9.7 Immature Gran % (Auto) 0.400 Neut % (Auto) 74.0 H Lymph % (Auto) 9.6 L Leon % (Auto) 9.9 Eos % (Auto) 5.5 H Baso % (Auto) 0.6 Absolute Neuts (auto) 5.8 Absolute Lymphs (auto) 0.76 L Nucleated RBC % 0 Sodium 141 Potassium 3.1 L Chloride 108 H Carbon Dioxide 28.0 Anion Gap 5 BUN 12 Creatinine 0.60 L Estim Creat Clear Calc 54.62 Est GFR (MDRD) Af Amer 165 Est GFR (MDRD) Non-Af 136 BUN/Creatinine Ratio 19.9 Glucose 77 Calcium 7.8 L Micro: Microbiology 06/19/20 04:30 Blood Culture (Wb) - Left Forearm Blood Culture - Preliminary No growth in 48 hours. 06/19/20 04:25 Blood Culture (Wb) - Right Forearm Blood Culture - Preliminary No growth in 48 hours. 06/19/20 04:00 Nasal Secretion SARS-CoV-2 Antigen (Rapid) - Final Radiography Diagnostic Testing: Radiology Impression Abdomen X-Ray 06/20/20 06:32 IMPRESSION: No bowel obstruction. Stable constipation. Electronically Signed: Gary Miles MD at 13:31 EDT Tel , Service support , Rhythm Strip Rhythm Strip: Sinus Rhythm Rate: 60 Ectopy: PVC(s) Physical Exam Narrative General: Alert, Cooperative, No apparent distress, - - Oriented x3 HEENT: Atraumatic, PERRLA, EOMI, Normocephalic Oral: Moist Mucosa Neck: Supple, No JVD Lungs: Clear to auscultation, Normal air movement, No rhonchi, No wheeze, No rales Cardiovascular: Regular rate, Regular Rhythm, Normal S1, Normal S2, No murmurs Abdomen: Soft, Non Tender, Non-Distended, No Hepato-splenomegaly Extremities: No edema, Capillary Refill Less than 3 Seconds Skin: No rashes, No breakdown Neurological: Neuro grossly intact, Sensory exam intact to light touch and pain Psych/Mental Status: Flat Affect Assessment & Plan Assessment/Plan (1) Acute encephalopathy: Status: Acute Code(s): G93.40 - Encephalopathy, unspecified (2) Complicated UTI (urinary tract infection): Status: Acute Code(s): N39.0 - Urinary tract infection, site not specified (3) Indwelling Li catheter present: Status: Chronic Code(s): Z97.8 - Presence of other specified devices (4) Abdominal mass: Status: Chronic Code(s): R19.00 - Intra-abdominal and pelvic swelling, mass and lump, unspecified site Qualifiers: Abdominal location: unspecified location Qualified Code(s): R19.00 - Intra-abdominal and pelvic swelling, mass and lump, unspecified site (5) History of colorectal cancer: Status: Chronic Code(s): Z85.048 - Personal history of other malignant neoplasm of rectum, rectosigmoid junction, and anus (6) Chronic anemia: Status: Chronic Code(s): D64.9 - Anemia, unspecified (7) Chronic obstructive pulmonary disease (COPD): Status: Chronic Code(s): J44.9 - Chronic obstructive pulmonary disease, unspecified Qualifiers: COPD type: unspecified COPD Qualified Code(s): J44.9 - Chronic obstructive pulmonary disease, unspecified (8) HTN (hypertension): Status: Chronic Code(s): I10 - Essential (primary) hypertension Qualifiers: Hypertension type: essential hypertension Qualified Code(s): I10 - Essential (primary) hypertension (9) HLD (hyperlipidemia): Status: Chronic Code(s): E78.5 - Hyperlipidemia, unspecified Qualifiers: Hyperlipidemia type: unspecified Qualified Code(s): E78.5 - Hyperlipidemia, unspecified (10) Chronic back pain: Status: Chronic Code(s): M54.9 - Dorsalgia, unspecified; G89.29 - Other chronic pain Qualifiers: Back pain location: back pain in unspecified location Back pain laterality: unspecified Qualified Code(s): M54.9 - Dorsalgia, unspecified; G89.29 - Other chronic pain (11) Severe protein-calorie malnutrition: Status: Chronic Code(s): E43 - Unspecified severe protein-calorie malnutrition (12) Tobacco use: Status: Chronic Code(s): Z72.0 - Tobacco use Plan: 1. Acute metabolic encephalopathy secondary to UTI with chronic urinary retention and chronic Li -Urine is pending, continue with antibiotics, his mental status does appear to be improving -Li changed on admission -Blood cultures are pending 2. History of colon cancer in 2014 status post colectomy/new abdominal mass with retroperitoneal lymph nodes as well as hilar lymphadenopathy and incidental lung nodule -Unsure the extent of the work-up he has had previously in [place] -Attempting to obtain outpatient records so there is duplication of oncologic work-up -He will need to follow-up with oncology as an outpatient 3. HTN/HLD -Stable -Continue with his home blood pressure medications -Continue with his home statin 4. Chronic COPD -Not currently in exacerbation -Can continue with inhalers 5. Macrocytic anemia, unsure if this is chronic -No previous lab work in our system therefore we will wait to receive his outpatient medical information from [place] 6. Chronic back pain with neuropathy -Given his altered mental status, continue with his Percocet without making any adjustment -Continue with topical lidocaine 7. Severe protein calorie malnutrition -Nutrition consult DVT: Lovenox Inpatient E&M: 41921 Subs Hosp L2
[2020-06-21] MEDS: Potassium Chloride Oral Tablet 20 MEQ 60 MEQ PO (12:48)
[2020-06-21 15:21] VITALS: BP 114/65; PULSE 75; RESP 18; TEMP 36.8; O2SAT 100
--- NOTE | 2020-06-21 16:27 | CPS ---
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
--- NOTE | 2020-06-21 16:31 | NURSING ---
phoned Dr. Lynn's office to inquire about medical records request- office person states they are not able to access any records or copy any. Female said [facility] who is part of [facility] handles medical records request, this specifications writer requested contact information of [facility], office lady states their phone number is [phone] and their fax number is . medical records request faxed payal and confirmation received of faxing going through.
[2020-06-21] MEDS: Magnesium Hydroxide 30 ML UDC PO (16:45)
[2020-06-21 18:59] VITALS: PULSE 70; RESP 18; O2SAT 97
[2020-06-21] MEDS: Acetaminophen 325 MG Tablet 650 MG PO (20:07)
[2020-06-21 20:45] VITALS: BP 118/60; PULSE 68; RESP 16; TEMP 36.7; O2SAT 96
[2020-06-21] MEDS: Atorvastatin Calcium 40 MG Tablet PO (21:39)
[2020-06-22] VITALS (7 sets, daily range): BP systolic 108–126; BP diastolic 52–65; PULSE 62–70; RESP 16–18; TEMP 36.4–36.8; O2SAT 95–100
--- NOTE | 2020-06-22 03:19 | NURSING ---
Pt stated he was having a little trouble breathing. He was sitting on the side of the bed and looked a little SOB. Pulse ox was 94% on room air. Pt states when this happens at home he uses an inhaler and then he is fine. Called respiratory for breathing treatment at this time.
--- NOTE | 2020-06-22 03:26 | NURSING ---
Respiratory therapy here to administer treatment. Pt stated he used to buy inhalers off the street when he lived in [place] and it cleared things right up. Further stated that albuterol tends to make matters worse. Respiratory therapy aware.
[2020-06-22] MEDS: 0.9% Normal Saline 1,000 ML 100 ML IV ×2 (06:03→16:31)
[2020-06-22 06:25] LABS: Absolute Lymphocyte Count 0.77 X10^3/uL (0.83-4.51); Absolute Neutrophil Count 7.6 X10^3/uL (2.0-7.7); Basophil# 0.04 X10^3/uL; Basophil% 0.4 % (0-1); Eosinophil# 0.58 X10^3/uL; Eosinophils% 5.8 % (0-5); Hematocrit 29.4 % (40-54); Hemoglobin 9.5 g/dL (13.0-16.5); Lymphocyte # 0.77 X10^3/ul (0.83-4.51); Lymphocyte % 7.7 % (19-41); Mean Corp Hgb Conc 32.3 g/dL (32-36); Mean Corpuscular Hgb 32.2 pg (27.0-32.0); Mean Corpuscular Volume 99.7 fL (80-94); Mean Platelet Vol. 9.2 fl (6.2-12.0); Monocyte# 0.98 X10^3/uL; Monocyte% 9.8 % (0-10); NRBC Flagged by Analyzer 0 % (0-5); Neutrophil # 7.55 X10^3/uL (2.7-7.7); Neutrophil % 75.9 % (47-70); Platelet Count 227 K/mm3 (150-450); RBC Distribution Width CV 13.4 % (11.6-14.6); RBC Distribution Width SD 48.7 fl (35.1-43.9); Red Blood Count 2.95 M/mm3 (4.6-6.2)
[2020-06-22] MEDS: Ipratropium/Albuterol Sulfate 3 ML AMPUL.NEB INHALATION ×3 (06:26→18:53)
[2020-06-22] MEDS: Budesonide Respules 0.5 MG/2 ML AMPUL.NEB. INHALATION ×2 (06:27→18:54)
[2020-06-22 06:50] LABS: Anion Gap 3 (5-15); BUN 11 mg/dL (7-18); Calcium,Total 7.9 mg/dL (8.5-10.1); Chloride 108 mmol/L (98-107); Creatinine, Serum 0.55 mg/dL (0.70-1.30); EST Glomerular Filtration Rate 151 mL/min (>60); Est Glom Filt Rate - Afr Amer 183 mL/min (>60); Estimated Creatinine Clearance 53.97 ml/min; Glucose 76 mg/dL (74-106); Phosphorus 2.7 mg/dL (2.5-4.9); Potassium 4.1 mmol/L (3.5-5.1); Sodium Level 138 mmol/L (136-145)
[2020-06-22] MEDS: HYDROcodone Bitartrate/Apap 5/325 Tablet PO ×2 (07:21→16:30)
[2020-06-22] MEDS: Potassium Chloride Oral Tablet 10 MEQ PO (08:21)
[2020-06-22] MEDS: Gabapentin 300 MG Capsule PO ×2 (08:21→16:31)
[2020-06-22] MEDS: Lidocaine 5% Patch 2 PATCH TOPICAL (09:37)
[2020-06-22] MEDS: Furosemide 20 MG Tablet PO (09:38)
[2020-06-22] MEDS: Enoxaparin 40 MG/0.4 ML Syringe SC (09:39)
[2020-06-22] MEDS: Carvedilol 3.125 MG TABLET PO ×2 (09:39→22:17)
[2020-06-22] MEDS: Famotidine 20 MG Tablet PO ×2 (09:39→22:17)
[2020-06-22] MEDS: Ceftriaxone 1 GM/50 ML BAG IV (09:42)
--- NOTE | 2020-06-22 11:43 | PN.HOSP_ITS ---
Subjective Subjective: Much more alert and oriented since being treated for his UTI. States he does not want to go to a [place] [facility] care facility and that he is more than capable of going home. Fortunately has not walked with physical therapy yet. We are still awaiting outside medical records for his previous cancer work-up so as not to repeat unnecessarily test that he is already had done. Objective Data Objective Data Vital Signs: Vital Signs Temp Pulse Resp BP Pulse Ox 98.0 F 65 18 108/52 L 100 06/22/20 08:22 06/22/20 08:22 06/22/20 08:22 06/22/20 08:22 06/22/20 08:22 Oxygen Delivery Method Room Air Weight: 147 lb 11.355 oz Body Mass Index (BMI) 21.5 Intake & Output: Intake and Output for Last 24 Hours 06/21/20 06/22/20 06/23/20 03:59 03:59 03:59 Intake Total 2956.67 / 2956.67 2275 / 2275 901.67 / 901.67 Output Total 2800 / 2800 950 / 950 250 / 250 Balance 156.67 / 156.67 1325 / 1325 651.67 / 651.67 Lab / Micro Data Result Diagrams: 06/22/20 06:04 06/22/20 06:04 Labs: Laboratory Results - last 24 hr 06/22/20 06/22/20 06:04 06:04 WBC 10.0 RBC 2.95 L Hgb 9.5 L Hct 29.4 L MCV 99.7 H MCH 32.2 H MCHC 32.3 RDW Std Deviation 48.7 H RDW Coeff of Harjinder 13.4 Plt Count 227 MPV 9.2 Immature Gran % (Auto) 0.400 Neut % (Auto) 75.9 H Lymph % (Auto) 7.7 L Smyth % (Auto) 9.8 Eos % (Auto) 5.8 H Baso % (Auto) 0.4 Absolute Neuts (auto) 7.6 Absolute Lymphs (auto) 0.77 L Nucleated RBC % 0 Sodium 138 Potassium 4.1 Chloride 108 H Carbon Dioxide 27.0 Anion Gap 3 L BUN 11 Creatinine 0.55 L Estim Creat Clear Calc 53.97 Est GFR (MDRD) Af Amer 183 Est GFR (MDRD) Non-Af 151 BUN/Creatinine Ratio 20.0 Glucose 76 Calcium 7.9 L Phosphorus 2.7 Micro: Microbiology 06/19/20 05:42 Urine, Catheterized Urine Culture - Preliminary GNR lactose distribution accounting clerk GNR lactose distribution accounting clerk#2 06/19/20 04:30 Blood Culture (Wb) - Left Forearm Blood Culture - Preliminary No growth in 48 hours. 06/19/20 04:25 Blood Culture (Wb) - Right Forearm Blood Culture - Preliminary No growth in 48 hours. 06/19/20 04:00 Nasal Secretion SARS-CoV-2 Antigen (Rapid) - Final Rhythm Strip Rhythm Strip: Sinus Rhythm Rate: 60 Ectopy: PVC(s) Physical Exam Narrative General: Alert, Cooperative, No apparent distress, - - Oriented x3 HEENT: Atraumatic, PERRLA, EOMI, Normocephalic Oral: Moist Mucosa Neck: Supple, No JVD Lungs: Clear to auscultation, Normal air movement, No rhonchi, No wheeze, No rales Cardiovascular: Regular rate, Regular Rhythm, Normal S1, Normal S2, No murmurs Abdomen: Soft, Non Tender, Non-Distended, No Hepato-splenomegaly Extremities: Left lower extremity pitting edema greater than right lower extremity, Capillary Refill Less than 3 Seconds Skin: No rashes, No breakdown Neurological: Neuro grossly intact, Sensory exam intact to light touch and pain Psych/Mental Status: Flat Affect Assessment & Plan Assessment/Plan (1) Acute encephalopathy: Status: Resolved Code(s): G93.40 - Encephalopathy, unspecified (2) Complicated UTI (urinary tract infection): Status: Acute Code(s): N39.0 - Urinary tract infection, site not specified (3) Indwelling Li catheter present: Status: Chronic Code(s): Z97.8 - Presence of other specified devices (4) Abdominal mass: Status: Chronic Code(s): R19.00 - Intra-abdominal and pelvic swelling, mass and lump, unspecified site Qualifiers: Abdominal location: unspecified location Qualified Code(s): R19.00 - Intra-abdominal and pelvic swelling, mass and lump, unspecified site (5) History of colorectal cancer: Status: Chronic Code(s): Z85.048 - Personal history of other malignant neoplasm of rectum, rectosigmoid junction, and anus (6) Chronic anemia: Status: Chronic Code(s): D64.9 - Anemia, unspecified (7) Chronic obstructive pulmonary disease (COPD): Status: Chronic Code(s): J44.9 - Chronic obstructive pulmonary disease, unspecified Qualifiers: COPD type: unspecified COPD Qualified Code(s): J44.9 - Chronic obstructive pulmonary disease, unspecified (8) HTN (hypertension): Status: Chronic Code(s): I10 - Essential (primary) hypertension Qualifiers: Hypertension type: essential hypertension Qualified Code(s): I10 - Essential (primary) hypertension (9) HLD (hyperlipidemia): Status: Chronic Code(s): E78.5 - Hyperlipidemia, unspecified Qualifiers: Hyperlipidemia type: unspecified Qualified Code(s): E78.5 - Hyperlipidemia, unspecified (10) Chronic back pain: Status: Chronic Code(s): M54.9 - Dorsalgia, unspecified; G89.29 - Other chronic pain Qualifiers: Back pain laterality: unspecified Back pain location: back pain in unspecified location Qualified Code(s): M54.9 - Dorsalgia, unspecified; G89.29 - Other chronic pain (11) Severe protein-calorie malnutrition: Status: Chronic Code(s): E43 - Unspecified severe protein-calorie malnutrition (12) Tobacco use: Status: Chronic Code(s): Z72.0 - Tobacco use (13) Edema of left lower extremity: Status: Acute Code(s): R60.0 - Localized edema Plan: 1. Acute metabolic encephalopathy secondary to UTI with chronic urinary retention and chronic Li -Urine is pending, continue with antibiotics, his mental status does appear to be improving -Li changed on admission -Blood cultures are pending 2. Left lower extremity edema -He states that this is a fairly recent problem is noticed his legs get swollen his left is swollen greater than his right leg -Venous Doppler performed on admission was negative for DVT 3. History of colon cancer in 2014 status post colectomy/new abdominal mass with retroperitoneal lymph nodes as well as hilar lymphadenopathy and incidental lung nodule -Unsure the extent of the work-up he has had previously in [place] -Attempting to obtain outpatient records so there is duplication of oncologic work-up -He will need to follow-up with oncology as an outpatient 3. HTN/HLD -Stable -Continue with his home blood pressure medications -Continue with his home statin 4. Chronic COPD -Not currently in exacerbation -Can continue with inhalers 5. Macrocytic anemia, unsure if this is chronic -No previous lab work in our system therefore we will wait to receive his outpatient medical information from [facility] 6. Chronic back pain with neuropathy -Given his altered mental status, continue with his Percocet without making any adjustment -Continue with topical lidocaine 7. Severe protein calorie malnutrition -Nutrition consult DVT: Lovenox Inpatient E&M: 33983 Subs Hosp L2
[2020-06-22] MEDS: Menthol/Lanolin/Calamine/Znox 113 GM Tube 1 APPLIC TOPICAL ×2 (13:22→22:21)
--- NOTE | 2020-06-22 16:12 | CHAPLAIN ---
Type of Pastoral Visit ___ Initial Visit _x__ Follow-up Visit ___ On-call Visit ___ General Patient Visit ___ Spiritual Assessment ___ Family Conference ___ Bereavement ___ Rapid Response ___ Code Blue ___ Other (describe below) Pastoral Care Referral From _x__ Patient _x__ Family ___ Nurse ___ Physician ___ Lay Out Inspector ___ Electric Shovel Operator ___ Other (describe below) Sacrament/Intervention _x__ Active listening ___ Anointing ___ Judaism ___ Bereavement ___ Communion _x__ Sherron exploration ___ ___ Life review _x__ Prayer ___ Reconciliation ___ Sacrament of Sick _x__ Supportive presence ___ Wedding ___ Other (describe below) Pastoral Comments patient opens up and asks the big questions; patient allowed a prayer
[2020-06-22] MEDS: Atorvastatin Calcium 40 MG Tablet PO (22:17)
[2020-06-23] VITALS (7 sets, daily range): BP systolic 129–143; BP diastolic 59–83; PULSE 61–76; RESP 16–21; TEMP 36.4–37.1; O2SAT 95–98
[2020-06-23] MEDS: 0.9% Normal Saline 1,000 ML 100 ML IV (02:08)
[2020-06-23] MEDS: Magnesium Hydroxide 30 ML UDC PO (04:37)
[2020-06-23] MEDS: Acetaminophen 325 MG Tablet 650 MG PO (04:42)
[2020-06-23] MEDS: Menthol/Lanolin/Calamine/Znox 113 GM Tube 1 APPLIC TOPICAL ×2 (08:01→14:19)
[2020-06-23] MEDS: Potassium Chloride Oral Tablet 10 MEQ PO (08:02)
[2020-06-23] MEDS: Gabapentin 300 MG Capsule PO (08:02)
[2020-06-23] MEDS: Ipratropium/Albuterol Sulfate 3 ML AMPUL.NEB INHALATION ×2 (08:07→13:23)
[2020-06-23] MEDS: Budesonide Respules 0.5 MG/2 ML AMPUL.NEB. INHALATION (08:07)
[2020-06-23] MEDS: Polyethylene Glycol 3350 17 GM PACKET PO (08:33)
--- NOTE | 2020-06-23 09:20 | RAD_ITS ---
STUDY: X-RAY - ABDOMEN/PELVIS REASON FOR EXAM: Male, 84 years old. Hernia TECHNIQUE: AP supine and upright views of the abdomen and pelvis. COMPARISON: Comparison is made with prior examination dated 06/20/2020. FINDINGS: Increased markings at the lung bases suggestive of bibasilar atelectasis and/or infiltrate. Large amount of fecal material is seen in the colon. Dilated loops of bowel seen in the abdomen and pelvis centrally. No evidence of haustral markings or valvulae conniventes. This may represent dilated central small bowel loops. Follow-up is recommended. There is no demonstrated free abdominal air. The visualized liver, spleen and kidneys are grossly normal in size and morphology. Normal soft tissue structures. There are diffuse degenerative changes of the visualized lumbar spine. RAD/Abd Inc Decub and/or Erect IMPRESSION: Large amount of fecal material is seen in the colon. Dilated Central abdominal and pelvic bowel loops with no evidence of a valvular conniventes or haustral markings. This may represent the dilated central small bowel loops. Follow-up is recommended. Electronically Signed: Anjel Glass MD at 10:29 EDT , Service support ,
[2020-06-23] MEDS: HYDROcodone Bitartrate/Apap 5/325 Tablet PO ×2 (10:39→16:49)
[2020-06-23] MEDS: 0.9% Saline Lock 10 ML Syringe IV (10:42)
[2020-06-23] MEDS: Ceftriaxone 1 GM/50 ML BAG IV (10:42)
[2020-06-23] MEDS: Enoxaparin 40 MG/0.4 ML Syringe SC (10:43)
[2020-06-23] MEDS: Carvedilol 3.125 MG TABLET PO (10:43)
[2020-06-23] MEDS: Famotidine 20 MG Tablet PO (10:43)
[2020-06-23] MEDS: Furosemide 20 MG Tablet PO (10:43)
[2020-06-23] MEDS: Lidocaine 5% Patch 2 PATCH TOPICAL (10:44)
--- NOTE | 2020-06-23 11:51 | PCM.DC ---
Discharge Instructions Outpatient Procedure Reason For Visit: ACUTE ENCEPHALOPATHY, COMPLICATED UTI Diet Discharge Diet: Low fat / Low cholesterol Activity Discharge Activity: Return to Normal Activity Dressing / Incision Call your doctor if you observe: Fever of 101 or Higher, Shortness of breath, Dizziness, Fainting spells, Swelling in the ankles, Chest pain and Increased palpitations (irregular heartbeat) Follow Up Care Test Results: Test results from this visit will be discussed in further detail at your follow-up appointment, if applicable. Discharge Plan Admission Admit Date/Time: 06/19/20 06:02 Attending Provider: Jose Angel Arechiga Primary Care Provider: Reyes Carmona Consulting Providers: Dolly Jimenez Instructions Additional Instructions / Restrictions: Obtain outpatient oncology workup from previous hospital. Discharge Orders/Prescriptions Prescriptions: New polyethylene glycol 3350 [Miralax] 17 gram/dose powder 17 g PO DAILY Qty: 510 RF: 0 ciprofloxacin HCl [Cipro] 500 mg tablet 500 mg PO BID Qty: 8 RF: 0 Continued atorvastatin 40 MG tablet 40 mg PO QHS RF: 0 potassium chloride 10 MEQ capsule, extended release 10 meq PO DAILY RF: 0 hydrocodone-acetaminophen 1 EACH tablet 1 each PO Q8H PRN PRN (Reason: Pain 1-10 Or Fever) RF: 0 carvedilol 3.125 MG tablet 3.125 mg PO BID RF: 0 furosemide 20 MG tablet 20 mg PO DAILY RF: 0 gabapentin 100 MG capsule 300 mg PO BID RF: 0 vit C,Z-Lz-wbcqw-lutein-zeaxan 1 EACH capsule 1 each PO BID RF: 0 hkcrlqghdzh-ectijhsws-snjvumod 1 EACH blister with device 1 each PO DAILY RF: 0 Referrals: Reyes Carmona MD [Primary Care Provider] - In 1 Week Paolo Das MD [NON-STAFF] - Within 2 Weeks Disposition Patient Disposition: Home, self care
--- NOTE | 2020-06-23 14:40 | CASEMGMT ---
MICHELE WEBER in to discuss discharge plans with patient. Patient is declining HHC at this time. Patient denies further needs. MICHELE WEBER instructed patient that should he reconsider HHC to follow-up with PCP. Patient voiced understanding.
--- NOTE | 2020-06-23 16:01 | PCM.DC.SUM ---
Providers Date of Admission: 06/19/20 Primary Care Physician: Dr. Reyes Carmona MD Consultations 06/19/20 07:14 Physician Consult Routine Consulting Provider: Dolly Jimenez Consulted Physician Type:: Hospice/Pallative care Reason for Consult: Chronic pain, suspect metastatic CA, family wants PALLIATIVE care consult. MD Notified: Yes Date Notified:: 06/19/20 Time Notified: 09:55 Method of Notification:: beef boner RN Reason For Visit: ACUTE ENCEPHALOPATHY, COMPLICATED UTI Diagnosis Discharge Diagnosis (1) Acute encephalopathy: Status: Resolved Code(s): G93.40 - Encephalopathy, unspecified (2) Complicated UTI (urinary tract infection): Status: Acute Code(s): N39.0 - Urinary tract infection, site not specified (3) Indwelling Campbell catheter present: Status: Chronic Code(s): Z97.8 - Presence of other specified devices (4) Abdominal mass: Status: Chronic Code(s): R19.00 - Intra-abdominal and pelvic swelling, mass and lump, unspecified site Qualifiers: Abdominal location: unspecified location Qualified Code(s): R19.00 - Intra-abdominal and pelvic swelling, mass and lump, unspecified site (5) History of colorectal cancer: Status: Chronic Code(s): Z85.048 - Personal history of other malignant neoplasm of rectum, rectosigmoid junction, and anus (6) Chronic anemia: Status: Chronic Code(s): D64.9 - Anemia, unspecified (7) Chronic obstructive pulmonary disease (COPD): Status: Chronic Code(s): J44.9 - Chronic obstructive pulmonary disease, unspecified Qualifiers: COPD type: unspecified COPD Qualified Code(s): J44.9 - Chronic obstructive pulmonary disease, unspecified (8) HTN (hypertension): Status: Chronic Code(s): I10 - Essential (primary) hypertension Qualifiers: Hypertension type: essential hypertension Qualified Code(s): I10 - Essential (primary) hypertension (9) HLD (hyperlipidemia): Status: Chronic Code(s): E78.5 - Hyperlipidemia, unspecified Qualifiers: Hyperlipidemia type: unspecified Qualified Code(s): E78.5 - Hyperlipidemia, unspecified (10) Chronic back pain: Status: Chronic Code(s): M54.9 - Dorsalgia, unspecified; G89.29 - Other chronic pain Qualifiers: Back pain location: back pain in unspecified location Back pain laterality: unspecified Qualified Code(s): M54.9 - Dorsalgia, unspecified; G89.29 - Other chronic pain (11) Severe protein-calorie malnutrition: Status: Chronic Code(s): E43 - Unspecified severe protein-calorie malnutrition (12) Tobacco use: Status: Chronic Code(s): Z72.0 - Tobacco use (13) Edema of left lower extremity: Status: Acute Code(s): R60.0 - Localized edema Medications at Discharge Home Medications atorvastatin 40 mg PO QHS 06/19/20 carvedilol 3.125 mg PO BID 06/19/20 nkmzixtkvkn-svqospbnc-coanaeih 1 each PO DAILY 06/19/20 furosemide 20 mg PO DAILY 06/19/20 gabapentin 300 mg PO BID 06/19/20 hydrocodone-acetaminophen 1 each PO Q8H PRN PRN 06/19/20 potassium chloride 10 meq PO DAILY 06/19/20 vit C,E-Ky-jutgf-lutein-zeaxan 1 each PO BID 06/19/20 ciprofloxacin HCl [Cipro] 500 mg PO BID #8 tab 06/23/20 polyethylene glycol 3350 [Miralax] 17 g PO DAILY #510 g 06/23/20 Hospital Course Operations None Procedures None Summary of Care Provided Minutes Spent on Discharge: 35 Hospital Course: Per HPI: The patient is an 84 y/o M recent moved to live with his daughter from [place] ~ 1 month prior to current presentation w/ PMHx: Hx Colorectal cancer s/p colectomy w/ ostomy 2013, 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 Patient reports increased fatigue, malaise over the last 2-3 days. Patient also over the last 2 weeks has developed bilateral lower extremity significant pitting edema with discomfort to his legs. His daughter notes that when he called her to move back to [place] he specifically stated he wanted to come back to [place] and felt like he was going to . Per his daughter's report he was diagnosed with some kind of stomach mass approximately 2 years prior and was not felt a candidate for removal and she has requested records from [place] but is yet to be given these records. Work-up in the ED included T 98.3, HR 84, BP 117/44, RR 14, 100% on RA, CBC with WBC 12.7, hemoglobin 10.9, platelet 268 with left shift, unremarkable PT and INR, CMP with sodium 132, chloride 95 otherwise unremarkable, BNP 77.4, ethyl alcohol level less than 3, lactic acid 2.0, blood culture x2 pending per ED, rapid Covid antigen negative, UA notable w/ pending UCx, CXR and CT Head pending upon evaluation. In the ED patient administered IV rocephin and IVFs. Hospital Course: 84-year-old male presenting from home with altered mental status. He was found to be secondary to UTI which is growing 3 different organisms including Klebsiella oxytocin, Klebsiella pneumonia, and a Citrobacter, all of which are sensitive to Rocephin and Cipro. He did receive about 4 days of Rocephin and will receive another 3 to 4 days of Cipro. He also has some chronic back pain and was recently started on Percocet which was initially thought to be causing his confusion until discovered that he had a UTI. He was started on MiraLAX today because of his constipation secondary to the Percocet. He did have a KUB on the day of discharge which demonstrated fecal material in the colon with dilated small bowel loops consistent with his Percocet use. I do recommend that he continue with a bowel regimen on discharge. Also there is concern for recurrent cancer, he does have a history of colon cancer however we have been attempting for the last 5 days to get records from his previous hospital and have been unsuccessful. I do recommend that he follow-up with oncology as an outpatient and obtain the medical records from his previous healthcare providers. I discussed the plan for discharge with him and he expressed understanding of the risk benefits of going home and wants to go home today. Physical Exam Narrative General: Alert, Cooperative, No apparent distress, - - Oriented x3 HEENT: Atraumatic, PERRLA, EOMI, Normocephalic Oral: Moist Mucosa Neck: Supple, No JVD Lungs: Clear to auscultation, Normal air movement, No rhonchi, No wheeze, No rales Cardiovascular: Regular rate, Regular Rhythm, Normal S1, Normal S2, No murmurs Abdomen: Soft, Non Tender, Non-Distended, No Hepato-splenomegaly Extremities: Left lower extremity pitting edema greater than right lower extremity, Capillary Refill Less than 3 Seconds Skin: No rashes, No breakdown Neurological: Neuro grossly intact, Sensory exam intact to light touch and pain Psych/Mental Status: Flat Affect ABG / Lab / Microbiology Data Result Diagrams: 06/22/20 06:04 06/22/20 06:04 Microbiology: Microbiology 06/19/20 05:42 Urine Culture - Final Urine, Catheterized Klebsiella pneumoniae sp pneum Citrobacter freundii Klebsiella oxytoca Microbiology 06/19/20 05:42 Urine, Catheterized Urine Culture - Final Klebsiella pneumoniae sp pneum Citrobacter freundii Klebsiella oxytoca 06/19/20 04:30 Blood Culture (Wb) - Left Forearm Blood Culture - Preliminary No growth in 48 hours. 06/19/20 04:25 Blood Culture (Wb) - Right Forearm Blood Culture - Preliminary No growth in 48 hours. 06/19/20 04:00 Nasal Secretion SARS-CoV-2 Antigen (Rapid) - Final Radiography Diagnostic Testing: Radiology Impression Abdomen X-Ray 06/23/20 09:20 IMPRESSION: Large amount of fecal material is seen in the colon. Dilated Central abdominal and pelvic bowel loops with no evidence of a valvular conniventes or haustral markings. This may represent the dilated central small bowel loops. Follow-up is recommended. Electronically Signed: Anjel Glass MD at 10:29 EDT , Service support , D/C Instructions Discharge Diet: Low fat / Low cholesterol Discharge Activity: Return to Normal Activity Call your doctor if you observe: Fever of 101 or Higher, Shortness of breath, Dizziness, Fainting spells, Swelling in the ankles, Chest pain and Increased palpitations (irregular heartbeat) Meaningful Use Info Meaningful Use Diagnoses (Choose all that apply): None applicable Discharge Plan Admission Admit Date/Time: 04/25/21 06:02 Attending Provider: Jose Angel Arechiga Primary Care Provider: Reyes Carmona Consulting Providers: Dolly Jimenez Instructions Additional Instructions / Restrictions: Obtain outpatient oncology workup from previous hospital. Discharge Orders/Prescriptions Prescriptions: New polyethylene glycol 3350 [Miralax] 17 gram/dose powder 17 g PO DAILY Qty: 510 RF: 0 ciprofloxacin HCl [Cipro] 500 mg tablet 500 mg PO BID Qty: 8 RF: 0 Continued atorvastatin 40 MG tablet 40 mg PO QHS RF: 0 potassium chloride 10 MEQ capsule, extended release 10 meq PO DAILY RF: 0 hydrocodone-acetaminophen 1 EACH tablet 1 each PO Q8H PRN PRN (Reason: Pain 1-10 Or Fever) RF: 0 carvedilol 3.125 MG tablet 3.125 mg PO BID RF: 0 furosemide 20 MG tablet 20 mg PO DAILY RF: 0 gabapentin 100 MG capsule 300 mg PO BID RF: 0 vit C,O-Dt-aydhd-lutein-zeaxan 1 EACH capsule 1 each PO BID RF: 0 rvldcqcqncq-ampcmnwgi-vkewdqzz 1 EACH blister with device 1 each PO DAILY RF: 0 Referrals: Reyes Carmona MD [Primary Care Provider] - In 1 Week Paolo Das MD [NON-STAFF] - Within 2 Weeks Disposition Patient Disposition: Home, self care Inpatient E&M: [id number] [facility]
== END 2020-06-23 17:14 | disposition home or self-care (01) | DRG 698 ==
LOC: ED 05:53 → MS3 06:26
PROVIDERS: Admitting Provider Family Medicine; Emergency Provider Emergency Medicine; PCP Family Medicine; Visit Provider Family Medicine
DX: T83.511A Infection and inflammatory reaction due to indwelling urethral catheter, initial encounter (principal); N39.0 Urinary tract infection, site not specified; E43 Unspecified severe protein-calorie malnutrition; G93.41 Metabolic encephalopathy; B96.1 Klebsiella pneumoniae [K. pneumoniae] as the cause of diseases classified elsewhere; B96.89 Other specified bacterial agents as the cause of diseases classified elsewhere; R19.00 Intra-abdominal and pelvic swelling, mass and lump, unspecified site; R91.8 Other nonspecific abnormal finding of lung field; J44.9 Chronic obstructive pulmonary disease, unspecified; I10 Essential (primary) hypertension; E78.5 Hyperlipidemia, unspecified; R60.0 Localized edema; G62.9 Polyneuropathy, unspecified; M54.5 Low back pain; G89.29 Other chronic pain; N40.1 Benign prostatic hyperplasia with lower urinary tract symptoms; R33.8 Other retention of urine; K59.03 Drug induced constipation; T40.2X5A Adverse effect of other opioids, initial encounter; D53.9 Nutritional anemia, unspecified; F17.210 Nicotine dependence, cigarettes, uncomplicated; Z93.3 Colostomy status; Z79.899 Other long term (current) drug therapy; Z85.048 Personal history of other malignant neoplasm of rectum, rectosigmoid junction, and anus
CPT/HCPCS: 36415; 70450; 71045; 71260; 74019; 74177; 80048; 80053; 81001; 82077; 83605; 83735; 83880; 84100; 85025; 85610; 87040; 87077; 87086; 87088; 87186; 87426; 93005; 93970; 94640; 97110; 97162; 97166; 97530; 97535; 97802; 99251; 99285; 99406; J7030; J7040; J7050; Q9967; A4216; G0463

== ENCOUNTER 2020-08-29 21:50 | Observation (INO) | payer MEDICARE, SELFPAY ==
[2020-06-19 12:16] VITALS: BMI 21.5
[2020-08-29 21:51] VITALS: BP 128/53; PULSE 64; RESP 20; TEMP 36.4; O2SAT 99; BMI 19.5
[2020-08-29 21:59] VITALS: O2SAT 100
--- NOTE | 2020-08-29 22:16 | EKG12_ITS ---
Test Reason : WEAKNESS Blood Pressure : / mmHG Vent. Rate : 065 BPM Atrial Rate : 065 BPM P-R Int : 140 ms QRS Dur : 146 ms QT Int : 484 ms P-R-T Axes : 000 -29 086 degrees QTc Int : 503 ms Normal sinus rhythm Left bundle branch block Abnormal ECG Confirmed by LENA LONG, TERRIE ([id number]), loan expeditor LYNN ORDONEZ ([id number]) on 08/31/2020 1:59:07 PM Referred By: MR Confirmed By:TERRIE PAREDES MD
--- NOTE | 2020-08-29 22:32 | RAD_ITS ---
STUDY: X-RAY CHEST REASON FOR EXAM: Male, 85 years old. sob TECHNIQUE: Single AP portable view of the chest. COMPARISON: 06/19/2020 FINDINGS: There is hyperinflation of the lungs consistent with chronic obstructive lung disease (COPD). Stable diffuse pulmonary fibrosis. No acute airspace disease. Stable right chest wall Mediport There is mild cardiac enlargement. Normal mediastinum and ranjeet. Normal visualized pulmonary arteries. Normal visualized aortic arch and descending thoracic aorta. Normal visualized thoracic spine. Normal visualized ribs, clavicles, and shoulders. There is no demonstrated abnormality of the visualized soft tissue structures of the upper abdomen. RAD/Chest 1 View (Portable) IMPRESSION: Stable COPD without acute findings Electronically Signed: Bruno Ba DO at 23:11 EDT Tel , Service support ,
[2020-08-29 22:53] LABS: Absolute Lymphocyte Count 0.99 X10^3/uL (0.83-4.51); Absolute Neutrophil Count 10.4 X10^3/uL (2.0-7.7); Basophil# 0.06 X10^3/uL; Basophil% 0.5 % (0-1); Eosinophil# 0.08 X10^3/uL; Eosinophils% 0.6 % (0-5); Hematocrit 30.8 % (40-54); Hemoglobin 10.2 g/dL (13.0-16.5); Lymphocyte # 0.99 X10^3/ul (0.83-4.51); Lymphocyte % 7.8 % (19-41); Mean Corp Hgb Conc 33.1 g/dL (32-36); Mean Corpuscular Hgb 32.4 pg (27.0-32.0); Mean Corpuscular Volume 97.8 fL (80-94); Mean Platelet Vol. 9.1 fl (6.2-12.0); Monocyte# 1.06 X10^3/uL; Monocyte% 8.4 % (0-10); NRBC Flagged by Analyzer 0 % (0-5); Neutrophil # 10.38 X10^3/uL (2.7-7.7); Platelet Count 392 K/mm3 (150-450); RBC Distribution Width CV 13.2 % (11.6-14.6); RBC Distribution Width SD 47.4 fl (35.1-43.9); Red Blood Count 3.15 M/mm3 (4.6-6.2); White Blood Count 12.7 K/mm3 (4.4-11.0)
[2020-08-29 23:01] LABS: ALB/GLOB Ratio 0.6 RATIO (0.9-2.4); AST(SGOT) 29 U/L (15-37); Alanine Aminotransfer ALT/SGPT 16 U/L (16-61); Albumin, Serum 2.6 g/dL (3.2-5.0); Alkaline Phosphatase 91 U/L (45-117); Anion Gap 6 (5-15); BUN 27 mg/dL (7-18); BUN/Creat Ratio 40.2 RATIO (10-20); Chloride 98 mmol/L (98-107); Creatinine, Serum 0.67 mg/dL (0.70-1.30); EST Glomerular Filtration Rate 120 mL/min (>60); Est Glom Filt Rate - Afr Amer 145 mL/min (>60); Estimated Creatinine Clearance 47.66 ml/min; Globulin 4.2 g/dL (2.2-4.2); Glucose 85 mg/dL (74-106); Potassium 2.8 mmol/L (3.5-5.1); Protein, Total 6.8 g/dL (6.4-8.2); Sodium Level 133 mmol/L (136-145); Troponin-I HS 47.2 pg/mL (3.0-78.5)
--- NOTE | 2020-08-29 23:05 | EDS_ITS ---
HPI History of Present Illness Chief Complaint: Weakness Narrative Narrative: Patient presenting for evaluation secondary to generalized weakness and weakness in his legs and difficulty ambulating. Patient has a underlying history of colorectal cancer status post precision with ostomy, COPD, hypertension, hyperlipidemia, chronic pain, and chronic malnutrition. Patient states that he has been dealing with generalized weakness recently, and today he stated that he was basically unable to get up and move himself. It was a bilateral weakness in his lower extremities. Reports that he is chronic pain in his pelvis status post his surgery that is really unchanged. Patient denies any numbness of the lower extremities. Denies any fevers, nausea vomiting. He denies any increase or decrease in output of stool from his ostomy. Patient states that he felt so weak today that he was unable to change his diaper or his ostomy. Review of systems otherwise negative. PFSH PFSH Home Medications atorvastatin 40 mg PO QHS 06/19/20 [History Last Taken Unknown] carvedilol 3.125 mg PO BID 06/19/20 [History Last Taken Unknown] bxpatbzonij-neaqldyfw-exdqbbfe 1 each PO DAILY 06/19/20 [History Last Taken Unknown] furosemide 20 mg PO DAILY 06/19/20 [History Last Taken Unknown] gabapentin 300 mg PO TID 06/19/20 [History Last Taken Unknown] hydrocodone-acetaminophen 1 each PO Q8H PRN PRN 06/19/20 [History Last Taken Unknown] potassium chloride 10 meq PO DAILY 06/19/20 [History Last Taken Unknown] vit C,D-Ro-ndfgk-lutein-zeaxan 1 each PO BID 06/19/20 [History Last Taken Unknown] polyethylene glycol 3350 [Miralax] 17 g PO DAILY #510 g 06/23/20 [Rx Last Taken Unknown] Allergy/AdvReac Type Severity Reaction Status Date / Time No Known Allergies Allergy Verified 06/19/20 03:53 Social History Smoking Status: Current every day smoker tobacco type: cigarettes ROS ROS ED Constitutional Constitutional ED: Reports other Details: Malaise and generalized weakness ENT ENT ED: Denies rhinorrhea Cardiovascular Cardiovascular: Denies chest pain Respiratory/Chest Respiratory/Chest: Denies cough or dyspnea Gastrointestinal Gastrointestinal: Denies abdominal pain, diarrhea, nausea or vomiting Genitourinary Genitourinary ED: Denies dysuria or hematuria Musculoskeletal Musculoskeletal: Denies back pain Integumentary Denies rash Neurologic Neurologic: Reports weakness; Denies paresthesias Psychiatric Psychiatric: Denies depression Endocrine Endocrinology: Denies fatigue Allergic/Immunologic Allergic/Immunologic ED: Denies urticaria EXAM Physical Exam Const Vital Signs: 08/29/20 21:51 08/29/20 21:59 Temperature 97.6 F L Temperature Source Temporal Pulse Rate 64 Respiratory Rate 20 H Respiratory Effort Normal Non-Labored Respiratory Depth Normal Respiratory Pattern Normal Blood Pressure 128/53 H Blood Pressure Mean 78 Pulse Ox 99 Oxygen Delivery Method Room Air Room Air Positive cachectic General Appearance ED: cachectic and NAD Nutritional Appearance: cachectic HEENT Reports moist mucous membranes Negative for trauma or tenderness Eyes EOMs intact bilaterally Neck no lymphadenopathy, supple and no JVD Chest Wall inspection of chest normal Resp normal respiratory effort and clear to auscultation bilaterally Cardio regular rate, regular rhythm, no murmurs and peripheral pulses 2+ throughout Rate: other Other Details: 2+ radial pulses bilaterally symmetric GI normal to inspection, nondistended, normoactive bowel sounds, non-tender and no masses GI Narrative: Ostomy is pink and draining stool that appears normal Palpation: soft Back/Spine normal to inspection Back/Spine Narrative: Spinous processes are easily visible due to the patient's level of cachexia Extremity normal to inspection General Extremety ED: Negative for tenderness Neuro oriented x3 and no sensory deficits noted Neuro Narrative: Patient is actually able to do straight leg raise bilaterally on his own and keep his legs above the bed. Good strength noted. Sensorium / Orientation: alert Motor Exam: strength 5/5 throughout Psych mental status grossly normal Skin no rashes or lesions noted MDM MDM MDM Narrative Medical decision making narrative: Patient presented with an exacerbation of chronic pain generalized weakness and shortness of breath. Chest x-ray by my personal review was unremarkable. EKG was unchanged from prior EKG. Lab work was indicative of the patient being hypokalemic at 2.8, normal troponin. Patient was given IV potassium replacement. He does have mild leukocytosis of 12 I do not have a source of infection currently. I believe the patient requires admission I discussed this with the hospitalist. Lab Data Labs: Laboratory Results - last 24 hr 08/29/20 08/29/20 22:30 22:30 WBC 12.7 H RBC 3.15 L Hgb 10.2 L Hct 30.8 L MCV 97.8 H MCH 32.4 H MCHC 33.1 RDW Std Deviation 47.4 H RDW Coeff of Harjinder 13.2 Plt Count 392 MPV 9.1 Immature Gran % (Auto) 0.700 Neut % (Auto) 82.0 H Lymph % (Auto) 7.8 L Elliott % (Auto) 8.4 Eos % (Auto) 0.6 Baso % (Auto) 0.5 Absolute Neuts (auto) 10.4 H Absolute Lymphs (auto) 0.99 Nucleated RBC % 0 Sodium 133 L Potassium 2.8 L Chloride 98 Carbon Dioxide 29.0 Anion Gap 6 BUN 27 H Creatinine 0.67 L Estim Creat Clear Calc 47.66 Est GFR (MDRD) Af Amer 145 Est GFR (MDRD) Non-Af 120 BUN/Creatinine Ratio 40.2 H Glucose 85 Calcium 9.0 Total Bilirubin 0.60 AST 29 ALT 16 Alkaline Phosphatase 91 Troponin I High Sens 47.2 Total Protein 6.8 Albumin 2.6 L Globulin 4.2 Albumin/Globulin Ratio 0.6 L Radiography Chest X-Ray - ED: 1 View, Read by ED Physician and Chronic Changes Diagnostic Testing: Radiology Impression Chest X-Ray 08/29/20 22:32 IMPRESSION: Stable COPD without acute findings Electronically Signed: Bruno Ba DO at 23:11 EDT Tel , Service support , EKG Initial EKG: Attestation: I personally reviewed and interpreted this EKG as follows: (Left bundle branch block with a ventricular rate of 65, no evidence of sgarbossa criteria, no evidence of abnormal CO interval, slightly prolonged QTC at 503, no acute ischemia or arrhythmia.) Discharge Plan Triage Chief Complaint: Weakness Other Complaint: Shortness of Breath ED Provider: Pepe Tovar Dx/Rx/DC Orders Clinical Impression: Acute hypokalemia, Weakness, Chronic pain Prescriptions: No Action atorvastatin 40 MG tablet 40 mg PO QHS RF: 0 potassium chloride 10 MEQ capsule, extended release 10 meq PO DAILY RF: 0 hydrocodone-acetaminophen 1 EACH tablet 1 each PO Q8H PRN PRN (Reason: Pain 1-10 Or Fever) RF: 0 carvedilol 3.125 MG tablet 3.125 mg PO BID RF: 0 furosemide 20 MG tablet 20 mg PO DAILY RF: 0 gabapentin 100 MG capsule 300 mg PO TID RF: 0 vit C,M-Xe-jgtwf-lutein-zeaxan 1 EACH capsule 1 each PO BID RF: 0 ozplkfsrfzo-bplkcmjxu-uzjfcfee 1 EACH blister with device 1 each PO DAILY RF: 0 polyethylene glycol 3350 [Miralax] 17 gram/dose powder 17 g PO DAILY Qty: 510 RF: 0 Primary Care Provider: Reyes Carmona Referrals: Reyes Carmona MD [Primary Care Provider] - Disposition Disposition: Acute Care Hospital [facility]
[2020-08-29 23:51] VITALS: BP 109/71; PULSE 92; RESP 24; O2SAT 97
[2020-08-30] VITALS (13 sets, daily range): BP systolic 103–134; BP diastolic 41–71; PULSE 68–92; RESP 16–30; TEMP 36.6–37.4; O2SAT 95–100; BMI 18.3
--- NOTE | 2020-08-30 00:11 | HP.PCM.HOS_ITS ---
HPI - General General Date of Admission: 08/30/20 Date of Service: 08/30/20 Chief Complaint: weakness HPI Narrative SUSAN VELÁZQUEZ, is a 85 M with a significant history of congestive heart failure; colon cancer status post colectomy with colostomy, and chemotherapy who presents to emergency department with progressively worsening weakness that has been going on for several months. Patient is unable to give exact timeframe. His weakness has progressed to the point where he has difficulty walking even with a walker. On the day of presentation he fell secondary to weakness. PFSH Medical History Alcohol abuse Cancer Chronic indwelling Li catheter Chronic pain Congestive heart failure (CHF) COPD (chronic obstructive pulmonary disease) Hearing loss, left Hearing loss, right Hypertension Smoker Home Medications atorvastatin 40 mg PO QHS 06/19/20 [History Last Taken Unknown] carvedilol 3.125 mg PO BID 06/19/20 [History Last Taken Unknown] fttnvynfvgp-excklwctl-qcsovggq 1 each PO DAILY 06/19/20 [History Last Taken Unknown] furosemide 40 mg PO DAILY 06/19/20 [History Last Taken Unknown] gabapentin 300 mg PO TID 06/19/20 [History Last Taken Unknown] hydrocodone-acetaminophen 1 each PO Q8H PRN PRN 06/19/20 [History Last Taken Unknown] potassium chloride 10 meq PO DAILY 06/19/20 [History Last Taken Unknown] vit C,O-Jh-ngjbg-lutein-zeaxan 1 each PO BID 06/19/20 [History Last Taken Unknown] polyethylene glycol 3350 [Miralax] 17 g PO DAILY #510 g 06/23/20 [Rx Last Taken Unknown] oxycodone myristate [Xtampza ER] 13.5 mg PO BID 08/30/20 [History Last Taken Unknown] Allergy/AdvReac Type Severity Reaction Status Date / Time No Known Allergies Allergy Verified 06/19/20 03:53 Family History Other CVA (cerebral vascular accident) Hypertension Surgical History H/O: knee surgery History of colon surgery Social History Smoking Status: Current every day smoker tobacco type: cigarettes ROS ROS Narrative 12 point review of system is negative except as stated in HPI. Vital Signs Vital Signs Vital Signs: 08/29/20 21:51 08/29/20 21:59 Temperature 97.6 F L Temperature Source Temporal Pulse Rate 64 Respiratory Rate 20 H Respiratory Effort Normal Non-Labored Respiratory Depth Normal Respiratory Pattern Normal Blood Pressure 128/53 H Blood Pressure Mean 78 Pulse Ox 99 Oxygen Delivery Method Room Air Room Air Weight Weight: 60.2 kg Body Mass Index (BMI) 19.5 Physical Exam Narrative Physical exam: General: Older frail looking male. Head: Normocephalic, atraumatic, no tenderness Eyes: PERRLA, EOMI CVS: Regular rate and rhythm Respiratory no acute distress, clear to auscultation bilaterally, chest wall nontender, no wheezing Abdomen: Soft, nontender, nondistended, normal bowel sounds, no masses. Ostomy with stool present : Deferred Extremities: Cachectic; muscle wasting. Skin: Normal color, no trauma, abrasions Neuro: Alert, oriented, cranial nerves II through XII grossly intact. Results Lab / Micro Data Result Diagrams: 08/29/20 22:30 08/29/20 22:30 Labs: Laboratory Results - last 24 hr 08/29/20 08/29/20 22:30 22:30 WBC 12.7 H RBC 3.15 L Hgb 10.2 L Hct 30.8 L MCV 97.8 H MCH 32.4 H MCHC 33.1 RDW Std Deviation 47.4 H RDW Coeff of Harjinder 13.2 Plt Count 392 MPV 9.1 Immature Gran % (Auto) 0.700 Neut % (Auto) 82.0 H Lymph % (Auto) 7.8 L [place] % (Auto) 8.4 Eos % (Auto) 0.6 Baso % (Auto) 0.5 Absolute Neuts (auto) 10.4 H Absolute Lymphs (auto) 0.99 Nucleated RBC % 0 Sodium 133 L Potassium 2.8 L Chloride 98 Carbon Dioxide 29.0 Anion Gap 6 BUN 27 H Creatinine 0.67 L Estim Creat Clear Calc 47.66 Est GFR (MDRD) Af Amer 145 Est GFR (MDRD) Non-Af 120 BUN/Creatinine Ratio 40.2 H Glucose 85 Calcium 9.0 Total Bilirubin 0.60 AST 29 ALT 16 Alkaline Phosphatase 91 Troponin I High Sens 47.2 Total Protein 6.8 Albumin 2.6 L Globulin 4.2 Albumin/Globulin Ratio 0.6 L Radiology Impression Chest X-Ray 08/29/20 22:32 IMPRESSION: Stable COPD without acute findings Electronically Signed: Bruno Ba DO at 23:11 EDT Tel , Service support , Assessment & Plan Assessment/Plan (1) Dehydration: (2) Hypokalemia: PLAN: Generalized weakness and fall PT and OT work with patient for strengthening and balance training. Case management consult for disposition. Check TSH and vitamin D. Dehydration Review of ED labs showed BUN of 27. Review of old records show that this is more than double his baseline. His creatinine is essentially stable but low secondary to poor muscle mass. Hypokalemia Review of labs shows a potassium of 2.8. Likely secondary to output from ostomy and dehydration. Received IV potassium at the emergency department. Unfortunately his IV potassium infiltrated and was discontinued; warm compress was applied. P.o. potassium ordered. Trend BMP. Normal saline with 20 mEq potassium ordered. Chronic pain Home [place] and gabapentin continued. Severe protein calorie malnutrition BMI of 18.3 kg/m?. Patient with cachexia and severe muscle wasting. Ensure Enlive ordered. Nutrition consult. DVT prophylaxis: Lovenox ordered Charges/Coding Visit Charges OBSV E&M: 85116 Initial observation care L3
[2020-08-30] MEDS: HYDROcodone Bitartrate/Apap 5/325 Tablet PO ×3 (00:20→17:32)
[2020-08-30 00:37] LABS: Magnesium 2.1 mg/dL (1.6-2.6)
[2020-08-30] MEDS: Potassium Chloride 10mEq/100mL 10 MEQ/100 ML IV.SOLN. 100 MEQ IV BOLUS ×2 (00:43→02:09)
[2020-08-30] MEDS: 0.9% Saline Lock 10 ML Syringe IV ×2 (02:10→02:15)
[2020-08-30] MEDS: Potassium Chloride Oral Tablet 20 MEQ 60 MEQ PO (02:10)
[2020-08-30] MEDS: Acetaminophen 325 MG Tablet 650 MG PO ×2 (02:13→15:02)
--- NOTE | 2020-08-30 02:30 | NURSING ---
Primary MICHELE Gonsalez notified this retail advisor that pt had infiltrated IV during K rider transfusion and pt was in significant pain as well as erythema and edema noted at site. Pharmacist Sumeet Walker was called for guidance on possible antidote and he was unable at this time to provide guidance and suggested looking at Jade. Alycepenefren recommended an antedote of hyaluronidase and Dr. Ma was notified with request for said antidote, however this medication is not available at our facility. Additional recommended treatment included dry heat application and oral pain medication which Primary MICHELE Gonsalez provided.
[2020-08-30] MEDS: KCL 20MEQ in 0.9% NS 20 MEQ/1,000 ML IV.SOLN. 100 MEQ IV ×3 (03:32→22:39)
[2020-08-30] MEDS: Gabapentin 300 MG Capsule PO ×3 (05:09→21:02)
[2020-08-30 06:55] LABS: Absolute Lymphocyte Count 0.91 X10^3/uL (0.83-4.51); Absolute Neutrophil Count 10.1 X10^3/uL (2.0-7.7); Basophil# 0.06 X10^3/uL; Basophil% 0.5 % (0-1); Eosinophil# 0.08 X10^3/uL; Eosinophils% 0.7 % (0-5); Hematocrit 28.3 % (40-54); Hemoglobin 9.4 g/dL (13.0-16.5); Lymphocyte # 0.91 X10^3/ul (0.83-4.51); Lymphocyte % 7.4 % (19-41); Mean Corp Hgb Conc 33.2 g/dL (32-36); Mean Corpuscular Hgb 32.8 pg (27.0-32.0); Mean Corpuscular Volume 98.6 fL (80-94); Mean Platelet Vol. 9.3 fl (6.2-12.0); Monocyte# 1.04 X10^3/uL; Monocyte% 8.5 % (0-10); NRBC Flagged by Analyzer 0 % (0-5); Neutrophil # 10.13 X10^3/uL (2.7-7.7); Neutrophil % 82.2 % (47-70); Platelet Count 375 K/mm3 (150-450); RBC Distribution Width CV 13.2 % (11.6-14.6); RBC Distribution Width SD 47.4 fl (35.1-43.9); Red Blood Count 2.87 M/mm3 (4.6-6.2); White Blood Count 12.3 K/mm3 (4.4-11.0)
[2020-08-30 07:29] LABS: Anion Gap 4 (5-15); BUN 23 mg/dL (7-18); BUN/Creat Ratio 33.5 RATIO (10-20); Calcium,Total 8.5 mg/dL (8.5-10.1); Chloride 102 mmol/L (98-107); Creatinine, Serum 0.69 mg/dL (0.70-1.30); EST Glomerular Filtration Rate 117 mL/min (>60); Est Glom Filt Rate - Afr Amer 142 mL/min (>60); Estimated Creatinine Clearance 45.84 ml/min; Glucose 91 mg/dL (74-106); Potassium 3.1 mmol/L (3.5-5.1); Sodium Level 134 mmol/L (136-145); Thyroid Stim Hormone (TSH) 7.01 uIU/mL (0.358-3.74)
[2020-08-30] MEDS: Budesonide Respules 0.5 MG/2 ML AMPUL.NEB. INHALATION ×2 (07:43→18:50)
[2020-08-30] MEDS: Ipratropium/Albuterol Sulfate 3 ML AMPUL.NEB INHALATION ×3 (07:43→18:50)
--- NOTE | 2020-08-30 07:47 | CPS ---
Pt says if he take Albuterol 4 times a day, it causes him to get pneumonia. He will take it BID while in here but will not take it more than that. Gaetano. will discuss with his
[2020-08-30 08:35] LABS: Vitamin D,25 Hydroxy 47.4 ng/mL
[2020-08-30] MEDS: Multivitamins,Ther W-Minerals Tablet 1 TABLET PO ×2 (09:02→17:32)
[2020-08-30] MEDS: Carvedilol 3.125 MG TABLET PO ×2 (09:02→21:04)
[2020-08-30] MEDS: Enoxaparin 40 MG/0.4 ML Syringe SC (09:03)
[2020-08-30] MEDS: Polyethylene Glycol 3350 17 GM PACKET PO (09:03)
--- NOTE | 2020-08-30 15:10 | CASEMGMT ---
Addendum entered by Jodie Shaffer 08/31/20 09:29: Late entry from 08/30/20 at 1500:Pt/daughter were also provided a list of HHC/SNF providers including quality and resource use data and consistent with the patient?s preferred geographic region, medical needs, and insurance network. Daughter requested for [facility]. This RN CM spent significant time with daughter, Connie, listening about their family dynamics and daughter desire to take pt home to her 1 story home with no steps so she can care for pt. Daughter states she has a bed set up for pt and would like him to come home with her at discharge. Emotional support provided. Pt is currently living with his other daughter and son-in-law. Jeff BAUTISTA CM Original Note: This RN CM to room with SOUZA form, explanation done-pt/daughter, Connie, voice understanding, and pt signs SOUZA form. Original to chart and copy to pt. Pt has MCR IP vs OBS booklet at bedside. Per pt, he is active with [facility] and pt is currently living with his other daughter, Ana, but was making plans to move in with Connie. Pt/daughter are unsure of plan for discharge. Pt states would like to go home but also states frustration about not knowing whether he has cancer back again and states he cannot make any further decisions without answers. Dr. Good did request records from [facility]'s office. Angle MENDOZA aware of all, voices understanding. CM to follow. Jeff BAUTISTA CM
--- NOTE | 2020-08-30 15:15 | PCM.HOSP.N ---
Hospitalist Note Patient relates to me that he wants to get better but also on have improvement of his pain. Patient complains of pain in his coccyx as well as his pelvis which has been ongoing. Physical exam patient is alert and oriented x3. Heart rate regular in rhythm plus S1-S2 with a murmurs Rubs. Lungs Are Clear to Auscultation Bilaterally. Abdomen Is Soft Nontender Nondistended Normal Bowel Sounds. Colostomy in Place with Soft Brown Stool. Umbilical Hernia Which Is Easily Reduced without Tenderness. Cachectic. Assessment and plan 1. Debility: PT OT evaluate and treat. Explained the patient that for further strengthening he needs to work with therapy but also needs to eat to have the calories and protein to be able to get stronger. 2. Severe protein calorie malnutrition: Encourage patient to eat. Advised patient that even if is not hungry and let him eat as long as he is not nauseated or vomiting. Nutrition to further assist with recommendations. Supplements. 3. Hypokalemia: Replace. Magnesium is 2.1. Likely just due to poor nutritional intake. 4. History of colon cancer: Patient has had partial colectomy for colon cancer. Patient had a CAT scan back in May that showed left perihilar consolidation and/or developing mass with associated inflammatory changes or posterior inflammatory change. Additionally showed abnormal periaortic lymphadenopathy suggestive of metastatic disease. Patient apparently had some biopsy performed in [place] and the patient is seen Dr. Dickey. Requested records from Dr. Jain's office but may have to request records from hospitals in [place] if that is not able to be obtained or does not provide information be looking for. Patient states that he had 2 cancer cells. I told when it know what that meant if they are atypical or if they are definitely cancer and what really needs to be done. Told he and his daughter can adequately prognosticate his situation at this time. Recommend to continue with palliative care but at this point time I cannot say the patient is hospice appropriate bigger since patient is wanting to actually get stronger. Procedures Hospitalists Procedures: Other Procedure - See Report (non billable rounding.)
--- NOTE | 2020-08-30 15:29 | EX.NTREPO ---
Medical Nutrition Therapy - History Nutrition Services has been consulted to:: Manage nutrient details of diet order Current diet/nutrition support order:: Regular - general diet. Regular food consistency. Regular/thin liquid consistency. Ensure enlive 120mL PO 4x/day. - Anthropometric Measurements Height:: 5 ft 10 in Weight:: 57.9 kg Body Mass Index (BMI):: 18.3 - Relevant Labs Relevant Labs:: WBC 12.3 K/mm3 (4.4-11.0) H 08/30/20 06:12 RBC 2.87 M/mm3 (4.6-6.2) L 08/30/20 06:12 Hgb 9.4 g/dL (13.0-16.5) L 08/30/20 06:12 Hct 28.3 % (40-54) L 08/30/20 06:12 MCV 98.6 fL (80-94) H 08/30/20 06:12 MCH 32.8 pg (27.0-32.0) H 08/30/20 06:12 RDW Std Deviation 47.4 fl (35.1-43.9) H 08/30/20 06:12 Neut % (Auto) 82.2 % (47-70) H 08/30/20 06:12 Lymph % (Auto) 7.4 % (19-41) L 08/30/20 06:12 Absolute Neuts (auto) 10.1 X10^3/uL (2.0-7.7) H 08/30/20 06:12 Sodium 134 mmol/L (136-145) L 08/30/20 06:12 Potassium 3.1 mmol/L (3.5-5.1) L 08/30/20 06:12 Anion Gap 4 (5-15) L 08/30/20 06:12 BUN 23 mg/dL (7-18) H 08/30/20 06:12 Creatinine 0.69 mg/dL (0.70-1.30) L 08/30/20 06:12 BUN/Creatinine Ratio 33.5 RATIO (10-20) H 08/30/20 06:12 Albumin 2.6 g/dL (3.2-5.0) L 08/29/20 22:30 Albumin/Globulin Ratio 0.6 RATIO (0.9-2.4) L 08/29/20 22:30 TSH 7.01 uIU/mL (0.358-3.74) H 08/30/20 06:12 - Assessment Food and Nutrient Intake: Pt reports that he has been consuming ~50% of meals but, question adequacy of nutrient-density headmaster/mistress. Pt's body weight at the end of May was 148.28# and current body weight is 127.6# representing 20.68#/14% weight loss in 2-3 months. Physical findings as follows: severe muscle and fat wasting of orbitals, clavicles, arms, and legs. Pt's food and nutrient intake, weight loss, and physical exam findings are significant for severe malnutrition in the context of chronic disease. Per EMR, pt has cachexia. Pt has been accepting of ensure enlive. Will continue and add magic cup with meals. - Nutrition Diagnosis: Clinical Problem Chronic Disease or Condition Related Malnutrition Clinical Problem - Etiology: severe malnutrition r/t inadequate oral intake and increased metabolic needs Clinical Problem - Signs/Symptoms: as evidenced by 20.68#/14% weight loss in 2-3 months, PO meeting <50% of estimated nutrition needs x2-3 months, physical findings as follows: severe muscle and fat wasting of orbitals, clavicles, arms, and legs. Status: Active Problem - Protein Calorie Malnutrition Evidence of Malnutrition Exists: Yes Severe Protein Calorie Malnutrition:: Chronic - Nutrition Intervention Nutrition Prescription: 1,900-2,000kcal/day (RMR x 1.3 +500kcal). Protein 75-85g/day (1.5g/kg). Fluid 1,700-1,800kcal/day (30mL/kg) - Food / Nutrient Delivery Interventions Summary of nutrition intervention:: Adjust diet order, Provide oral nutrition supplement Nutrition support ordered as / adjusted to:: Continue Regular - general diet as ordered. Continue ensure enlive 120mL PO 4x/day at medpass to provide additional 700 calories and 40 gm protein. Add magic cup BID at lunch and dinner to provide additional 580 calories and 18 gm protein. May need to consider tube feeding support if intake and intake and weight continue to decline. Angelia Babcock MS, RD, LD Nutrition education provided?: Yes - pt agreeable to ONS for extra nutrition as tolerated. - MNT Monitoring Active Nutrition Patient: Yes Nutrition Status: Requires Follow Up 3-5 Days
[2020-08-30 21:01] LABS: Bacteria 0 SEEN /hpf (None Seen); Mucous, Urine 0 SEEN /hpf (<or=2+); Red Blood Cells-Urine 0 SEEN /hpf (0-5); Squamous Epithelial Cells - UA 0 SEEN /hpf (0-5)
[2020-08-30 21:03] LABS: Color, Urine Yellow (Yellow); Glucose, Dipstick Normal (Normal); Ketone-Dipstick Negative (Negative); Leukocyte Esterase-Dipstick 500 /ul (Negative); Nitrite-Dipstick Positive (Negative); Occult Blood-Urine 150 /ul (Negative); Protein-Dipstick 100 mg/dl (Negative); Urine Bilirubin Dipstick Negative (Negative); Urine Clarity Cloudy (Clear); Urine Urobilinogen 4 mg/dl (Normal)
[2020-08-30] MEDS: MELATONIN 3 MG TABLET PO (21:03)
[2020-08-30] MEDS: Senna/Docusate Sodium 1 Tablet 2 TABLET PO (21:03)
[2020-08-30] MEDS: Famotidine 20 MG Tablet PO (21:03)
[2020-08-30] MEDS: Atorvastatin Calcium 40 MG Tablet PO (21:04)
[2020-08-30] MEDS: Acetaminophen 500 MG Tablet 1000 MG PO (21:07)
[2020-08-30 21:09] LABS: White Blood Cells >100 SEEN /hpf (0-5)
[2020-08-30] MEDS: oxyCODONE 5 MG Tablet PO (22:15)
[2020-08-30] MEDS: oxyCODONE 5 MG Tablet 10 MG PO (22:56)
[2020-08-31] VITALS (10 sets, daily range): BP systolic 98–131; BP diastolic 53–72; PULSE 69–84; RESP 16–18; TEMP 36.4–37.1; O2SAT 95–100
[2020-08-31] MEDS: oxyCODONE 5 MG Tablet 10 MG PO ×3 (03:17→15:27)
[2020-08-31] MEDS: Albuterol 2.5 MG/3 ML VIAL.NEB. INHALATION (03:49)
[2020-08-31] MEDS: Acetaminophen 500 MG Tablet 1000 MG PO ×2 (05:06→14:53)
[2020-08-31] MEDS: Gabapentin 300 MG Capsule PO ×2 (05:07→14:53)
[2020-08-31] MEDS: Ipratropium/Albuterol Sulfate 3 ML AMPUL.NEB INHALATION ×2 (07:25→16:44)
[2020-08-31] MEDS: Budesonide Respules 0.5 MG/2 ML AMPUL.NEB. INHALATION ×2 (07:25→16:44)
[2020-08-31 07:43] LABS: Anion Gap 5 (5-15); BUN 15 mg/dL (7-18); Calcium,Total 8.1 mg/dL (8.5-10.1); Chloride 106 mmol/L (98-107); Creatinine, Serum 0.47 mg/dL (0.70-1.30); EST Glomerular Filtration Rate 182 mL/min (>60); Est Glom Filt Rate - Afr Amer 220 mL/min (>60); Glucose 79 mg/dL (74-106); Potassium 4.3 mmol/L (3.5-5.1); Sodium Level 135 mmol/L (136-145)
[2020-08-31] MEDS: Enoxaparin 40 MG/0.4 ML Syringe SC (08:58)
[2020-08-31] MEDS: Lidocaine 5% Patch 1 PATCH TOPICAL (08:58)
[2020-08-31] MEDS: Multivitamins,Ther W-Minerals Tablet 1 TABLET PO (08:58)
[2020-08-31] MEDS: Polyethylene Glycol 3350 17 GM PACKET PO (09:00)
[2020-08-31] MEDS: Famotidine 20 MG Tablet PO (09:00)
[2020-08-31] MEDS: KCL 20MEQ in 0.9% NS 20 MEQ/1,000 ML IV.SOLN. 100 MEQ IV (09:14)
[2020-08-31] MEDS: Carvedilol 3.125 MG TABLET PO (10:34)
--- NOTE | 2020-08-31 10:53 | PN.HOSP_ITS ---
Subjective Subjective Still with low back/hip pain. Constipated and requesting softener for bowels. Ate ~12% of breakfast. Objective Data Objective Data Vital Signs: Vital Signs Temp Pulse Resp BP Pulse Ox 36.8 C 73 16 111/53 L 100 08/31/20 10:32 08/31/20 10:32 08/31/20 10:32 08/31/20 10:32 08/31/20 10:32 Oxygen Delivery Method Room Air Weight: 61.9 kg Body Mass Index (BMI) 18.3 Intake & Output: Intake and Output for Last 24 Hours 08/29/20 08/30/20 08/31/20 23:59 23:59 23:59 Intake Total 2465 / 2665 1260 / 1260 Output Total 1275 / 1550 500 / 500 Balance 1190 / 1115 760 / 760 Lab / Micro Data Result Diagrams: 08/30/20 06:12 08/31/20 06:45 Labs: Laboratory Results - last 24 hr 08/30/20 08/31/20 20:53 06:45 Sodium 135 L Potassium 4.3 Chloride 106 Carbon Dioxide 24.0 Anion Gap 5 BUN 15 Creatinine 0.47 L Estim Creat Clear Calc 49.00 Est GFR (MDRD) Af Amer 220 Est GFR (MDRD) Non-Af 182 BUN/Creatinine Ratio 32.0 H Glucose 79 Calcium 8.1 L Urine Color Yellow Urine Clarity Cloudy Urine pH 7.0 Ur Specific [place] 1.010 Urine Protein 100 H Urine Glucose (UA) Normal Urine Ketones Negative Urine Occult Blood 150 H Urine Nitrite Positive H Urine Bilirubin Negative Urine Urobilinogen 4 H Ur Leukocyte Esterase 500 H Urine RBC 0 SEEN Urine WBC >100 SEEN Ur Squamous Epith Cells 0 SEEN Urine Bacteria 0 SEEN Urine Mucus 0 SEEN Physical Exam Narrative Physical exam: General: Older frail looking male. Head: Normocephalic, atraumatic, no tenderness Eyes: PERRLA, EOMI CVS: Regular rate and rhythm Respiratory no acute distress, clear to auscultation bilaterally, chest wall nontender, no wheezing Abdomen: Soft, nontender, nondistended, normal bowel sounds, no masses. Ostomy with stool present : Deferred Extremities: Cachectic; muscle wasting. Skin: Normal color, no trauma, abrasions Neuro: Alert, oriented, cranial nerves II through XII grossly intact. Assessment & Plan Assessment/Plan (1) Dehydration: (2) Hypokalemia: PLAN: Generalized weakness and fall PT and OT work with patient for strengthening and balance training. Case manage ment consult for disposition. Check TSH and vitamin D. Dehydration Review of ED labs showed BUN of 27. Review of old records show that this is more than double his baseline. His creatinine is essentially stable but low secondary to poor muscle mass. Hypokalemia Review of labs shows a potassium of 2.8. Likely secondary to output from ostomy and dehydration. Received IV potassium at the emergency department. Unfortunately his IV potassium infiltrated and was discontinued; warm compress was applied. P.o. potassium ordered. Trend BMP. Normal saline with 20 mEq potassium ordered. Chronic pain Home [place] and gabapentin continued. Severe protein calorie malnutrition BMI of 18.3 kg/m?. Patient with cachexia and severe muscle wasting. Ensure Enlive ordered. Nutrition consult. DVT prophylaxis: Lovenox ordered Charges/Coding Visit Charges Inpatient E&M: 21444 Subs Hosp L2
[2020-08-31] MEDS: Bisacodyl 5 MG Tablet PO (12:27)
--- NOTE | 2020-08-31 15:15 | CASEMGMT ---
This RN CM to room to discuss discharge plan with pt/daughter. Pt states he would like to go home and is agreeable HHC. At this time, pt will go back to daughter Ana's home but then may transition to daughterThania home in the next few days after 'taking care of some things' per pt. Script to daughter for hospital bed once pt gets settled. Daughter states they would like [facility] with 2nd choice of [facility]. Call to [facility] and they are not currently taking [facility] pt's. Referral faxed to [facility]. Daughter updated and CM to follow. SStdina BAUTISTA CM
--- NOTE | 2020-08-31 15:47 | PCM.DC ---
Discharge Instructions Diet Discharge Diet: No restrictions Activity Discharge Activity: Return to Normal Activity, Use Walker and - Dressing / Incision Call your doctor if you observe: - (falls) Follow Up Care Test Results: Test results from this visit will be discussed in further detail at your follow-up appointment, if applicable. Discharge Plan Admission Admit Date/Time: 08/30/20 00:18 Attending Provider: Roc Good Primary Care Provider: Reyes Carmona Discharge Orders/Prescriptions Prescriptions: New Ensure Enlive 0.08 gram-1.5 kcal/mL Liquid 120 ml PO 4X/DAY Qty: 60 RF: 0 acetaminophen 500 mg Tablet 1,000 mg PO Q8 Qty: 0 RF: 0 oxycodone 5 mg tablet 5 mg PO Q6H PRN (Reason: pain) 3 Days Qty: 12 RF: 0 Continued atorvastatin 40 MG tablet 40 mg PO QHS RF: 0 carvedilol 3.125 MG tablet 3.125 mg PO BID RF: 0 gabapentin 100 MG capsule 300 mg PO TID RF: 0 vit C,I-On-zzgfm-lutein-zeaxan 1 EACH capsule 1 each PO BID RF: 0 czbtqexmvmi-ukbwjqlvm-llevkaca 1 EACH blister with device 1 each PO DAILY RF: 0 polyethylene glycol 3350 [Miralax] 17 gram/dose powder 17 g PO DAILY Qty: 510 RF: 0 Discontinued potassium chloride 10 MEQ capsule, extended release 10 meq PO DAILY RF: 0 hydrocodone-acetaminophen 1 EACH tablet 1 each PO Q8H PRN PRN (Reason: Pain 1-10 Or Fever) RF: 0 furosemide 20 MG tablet 40 mg PO DAILY RF: 0 Xtampza ER 13.5 mg Cap,Sprinkl,Er12hr(Dont Crush) 13.5 mg PO BID RF: 0 morphine [MS Contin] 15 mg tablet extended release 15 mg PO BID RF: 0 Referrals / Follow Up: Reyes Carmona MD [Primary Care Provider] - Within 1 Week Luis Dickey DO [STAFF PHYSICIAN] - Within 1 Month Disposition Disposition (needs filled in before D/C Order can be placed): Home Health Service
--- NOTE | 2020-08-31 15:55 | DS.PCM_ITS ---
Providers Date of Admission: 08/30/20 Primary Care Physician: Dr. Reyes Carmona MD Consultations 08/30/20 00:42 Consult: Onc/Wound/physicians assistant Routine Comment: Reason for Consult:: with colostomy Reason For Visit: HYPOKALEMIA, GENERAL WEAKNESS Diagnosis Discharge Diagnosis (1) Dehydration: Status: Acute Code(s): E86.0 - Dehydration (2) Hypokalemia: Status: Acute Code(s): E87.6 - Hypokalemia Medications at Discharge Home Medications atorvastatin 40 mg PO QHS 06/19/20 carvedilol 3.125 mg PO BID 06/19/20 mwdjdolakny-skuuqyyeu-uozldbvh 1 each PO DAILY 06/19/20 gabapentin 300 mg PO TID 06/19/20 vit C,R-Qz-oesud-lutein-zeaxan 1 each PO BID 06/19/20 polyethylene glycol 3350 [Miralax] 17 g PO DAILY #510 g 06/23/20 acetaminophen 1,000 mg PO Q8 #0 tab 08/31/20 food supplemt, lactose-reduced [Ensure Enlive] 120 ml PO 4X/DAY #60 bottle 08/31/20 oxycodone 5 mg PO Q6H PRN 3 Days #12 tab 08/31/20 Hospital Course Operations None Procedures None Summary of Care Provided Minutes Spent on Discharge: 50 Hospital Course: 85-year-old male presents with weakness and patient was noted to be hypokalemic with a potassium of 2.8. Patient was admitted potassium replaced and corrected. Patient is very cachectic and malnourished and does not eat very much. There is concern about patient going with hospice but when I s poke with him on August 30, he stated that he wanted to get stronger. We had a long conversation about what that would entail including working with physical occupational therapy as well as eating. I encouraged him to eat even if he is not hungry as long as he is not nauseated or throwing up. Spoke with his daughter as well on the . Today, the patient was adamant about going home but he was going to go stay with his other daughter and not the daughter who is here who is also his medical and financial power of deputy attorney general. Apparently there is a falling out between the 2 sisters where his medical power of deputy attorney general, whom he does not live with now is not allowed to visit her sister when her father is there. Patient asked what I would recommend for him and I told him to stay with his daughter, Jaime, who is his medical and financial power of deputy attorney general. He dismissed that and said that he is going to go with his other daughter so that he could get his paid for as well some other financial issues issues taken care of. Asked why he could not do that at Jaime's house and he did not provide an answer saying that he would do that at the other daughter's house and then stay with Jaime. I informed he and his daughter that I unfortunately start him to get worse because he is not eating much and he would make excuses as to why he is not eating but again I told him that he needs to eat to try to get stronger. Told if he does not he that he is can continue to get weaker. So the plan is for him to go home with home care and he will be seen with his 1 daughter and then potentially transition over to Jaime's house. Patient will need a hospital bed but since he may be moving between daughters, will receive a prescription for that and get that coordinated once he gets finally settled. Unfortunately, I do expect this patient to get worse and I did express this to Jaime. Patient has a high likelihood of readmission given his frailty. I did review records from Dr. Jain's office where it looks like the patient may have a recurrence of his rectal cancer. He at that time was not sure if he would want undergo a biopsy. I did discuss with his daughter that biopsy may confirm cancer but he is not can be a candidate for chemotherapy given his frailty at least at this time. Physical Exam Const alert Constitutional Narrative: cachectic. afebril. GI GI Narrative: hernia Weight / BMI Weight Weight: 61.9 kg Body Mass Index (BMI) 18.3 ABG / Lab / Microbiology Data Result Diagrams: 08/30/20 06:12 08/31/20 06:45 Laboratory: Laboratory Results - last 24 hr 08/30/20 08/31/20 20:53 06:45 Sodium 135 L Potassium 4.3 Chloride 106 Carbon Dioxide 24.0 Anion Gap 5 BUN 15 Creatinine 0.47 L Estim Creat Clear Calc 49.00 Est GFR (MDRD) Af Amer 220 Est GFR (MDRD) Non-Af 182 BUN/Creatinine Ratio 32.0 H Glucose 79 Calcium 8.1 L Urine Color Yellow Urine Clarity Cloudy Urine pH 7.0 Ur Specific [place] 1.010 Urine Protein 100 H Urine Glucose (UA) Normal Urine Ketones Negative Urine Occult Blood 150 H Urine Nitrite Positive H Urine Bilirubin Negative Urine Urobilinogen 4 H Ur Leukocyte Esterase 500 H Urine RBC 0 SEEN Urine WBC >100 SEEN Ur Squamous Epith Cells 0 SEEN Urine Bacteria 0 SEEN Urine Mucus 0 SEEN D/C Instructions Discharge Diet: No restrictions Call your doctor if you observe: - (falls) Meaningful Use Info Meaningful Use Diagnoses (Choose all that apply): None applicable Discharge Plan Admission Admit Date/Time: 08/30/20 00:18 Attending Provider: Roc Good Primary Care Provider: Reyes Carmona Discharge Orders/Prescriptions Prescriptions: New Ensure Enlive 0.08 gram-1.5 kcal/mL Liquid 120 ml PO 4X/DAY Qty: 60 RF: 0 acetaminophen 500 mg Tablet 1,000 mg PO Q8 Qty: 0 RF: 0 oxycodone 5 mg tablet 5 mg PO Q6H PRN (Reason: pain) 3 Days Qty: 12 RF: 0 Continued atorvastatin 40 MG tablet 40 mg PO QHS RF: 0 carvedilol 3.125 MG tablet 3.125 mg PO BID RF: 0 gabapentin 100 MG capsule 300 mg PO TID RF: 0 vit C,Y-Xl-sedhu-lutein-zeaxan 1 EACH capsule 1 each PO BID RF: 0 dgbumesjwvi-moxkornyn-xechetvf 1 EACH blister with device 1 each PO DAILY RF: 0 polyethylene glycol 3350 [Miralax] 17 gram/dose powder 17 g PO DAILY Qty: 510 RF: 0 Discontinued potassium chloride 10 MEQ capsule, extended release 10 meq PO DAILY RF: 0 hydrocodone-acetaminophen 1 EACH tablet 1 each PO Q8H PRN PRN (Reason: Pain 1-10 Or Fever) RF: 0 furosemide 20 MG tablet 40 mg PO DAILY RF: 0 Xtampza ER 13.5 mg Cap,Sprinkl,Er12hr(Dont Crush) 13.5 mg PO BID RF: 0 morphine [MS Contin] 15 mg tablet extended release 15 mg PO BID RF: 0 Referrals / Follow Up: Reyes Carmona MD [Primary Care Provider] - Within 1 Week Luis Dickey DO [STAFF PHYSICIAN] - Within 1 Month Disposition Disposition (needs filled in before D/C Order can be placed): Home Health Service Charges/Coding Visit Charges OBSV E&M: 15312 Observation care discharge
--- NOTE | 2020-08-31 15:58 | PHA.DC.MR ---
Pharmacy Service has performed discharge medication reconciliation for this patient. The patient's discharge medication list was reviewed for discrepancies and discrepancies were resolved. Home Medications atorvastatin 40 mg PO QHS 06/19/20 carvedilol 3.125 mg PO BID 06/19/20 wowfnqcfnlv-lbxnxsvll-jsrrmbqy 1 each PO DAILY 06/19/20 gabapentin 300 mg PO TID 06/19/20 vit C,N-Cy-nstgf-lutein-zeaxan 1 each PO BID 06/19/20 polyethylene glycol 3350 [Miralax] 17 g PO DAILY #510 g 06/23/20 acetaminophen 1,000 mg PO Q8 #0 tab 08/31/20 food supplemt, lactose-reduced [Ensure Enlive] 120 ml PO 4X/DAY #60 bottle 08/31/20 oxycodone 5 mg PO Q6H PRN 3 Days #12 tab 08/31/20
--- NOTE | 2020-09-01 09:44 | CASEMGMT ---
Addendum entered by Jodie Shaffer 09/01/20 15:29: [facility] notified to cancel referral. Jeff BAUTISTA CM Addendum entered by Jodie Shaffer 09/01/20 15:14: Call to [facility] and they can accept pt at this time but will not be able to do start of care until Saturday09/05/20. Chucky, pt's daughter,updated, voices understanding and provided contact info for [facility]. 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 Chucky aware that SN can be referred, if necessary, by Dr. Carmona. Jeff BAUTISTA CM Addendum entered by Jodie Shaffer 09/01/20 14:30: Call back from [facility] and they are unable to accept pt. Referral faxed to [facility] and [facility] as they are only two left in network for pt insurance. CM to follow. Jeff BAUTISTA CM Addendum entered by Jodie Shaffer 09/01/20 13:48: Call to [facility] to check on faxed referral and per [facility], they cannot accept pt. Chucky, daughter, updated, voices understanding and states would like this RN CM to try [facility] and then states no preference after that if they are unable to accept. CM to follow. Jeff BAUTISTA CM Addendum entered by Jodie Shaffer 09/01/20 12:09: Call back from [facility] and they state they are now unable to take pt as he has a [facility] medicare and they are not in-network. Call to daughter, Chucky, and she is updated at this time. Chucky states they would like to try [facility]. Referral faxed. Jeff BAUTISTA CM Original Note: Call from [facility] and they state they will take pt and looking to start of care. Jeff BAUTISTA CM
== END 2020-08-31 15:55 | disposition home health service (06) ==
LOC: ED 08-30 00:24 → PCU 08-30 01:14
PROVIDERS: Admitting Provider Hospitalist; Emergency Provider Emergency Medicine; PCP Family Medicine
DX: E86.0 Dehydration (principal); E87.6 Hypokalemia; J44.9 Chronic obstructive pulmonary disease, unspecified; E78.5 Hyperlipidemia, unspecified; G89.29 Other chronic pain; I11.0 Hypertensive heart disease with heart failure; E43 Unspecified severe protein-calorie malnutrition; Z68.1 Body mass index [BMI] 19.9 or less, adult; Z79.899 Other long term (current) drug therapy; Z79.51 Long term (current) use of inhaled steroids; Z79.891 Long term (current) use of opiate analgesic; F17.210 Nicotine dependence, cigarettes, uncomplicated; I50.9 Heart failure, unspecified; H91.93 Unspecified hearing loss, bilateral; Z85.038 Personal history of other malignant neoplasm of large intestine
CPT/HCPCS: 36415; 71045; 80048; 80053; 81001; 82306; 83735; 84443; 84484; 85025; 93005; 94640; 96360; 96361; 96372; 97162; 97166; 97802; 99218; 99285; J7030; A4216; G0378

== ENCOUNTER 2020-09-12 03:23 | Inpatient (IN) | payer MEDICARE, SELFPAY ==
[2020-08-30 15:35] VITALS: BMI 18.3
[2020-09-12] VITALS (10 sets, daily range): BP systolic 96–155; BP diastolic 60–87; PULSE 90–115; RESP 18–23; TEMP 35.7–36.9; O2SAT 100; BMI 19.9; BMI 18.3
--- NOTE | 2020-09-12 03:37 | EX.ED.DYSGE1 ---
HPI History of Present Illness Chief Complaint: Li C/O Informant: patient Onset/Context/Timing Onset: Days Context: Gradual Onset Timing: Continuous Current Severity: Mild Maximum Severity: Mild Narrative Narrative: 85-year-old gentleman history of colon cancer with metastases. On hospice care at home lives with his daughter and son-in-law. Said he had falls recently at home and is developed leakage from his Li bag. He denies any injuries. He called the squad tonight to be evaluated. Recently has been hospitalized due to abnormal electrolytes. He denies any nausea, vomiting or fever. Prior similar symptoms: No Recent Illness/Hospitalization: No PFSH PFSH Medical History Alcohol abuse Cancer Chronic indwelling Li catheter Chronic pain Congestive heart failure (CHF) COPD (chronic obstructive pulmonary disease) Hearing loss, left Hearing loss, right Hypertension Smoker Home Medications atorvastatin 40 mg PO QHS 06/19/20 [History Last Taken 09/11/20] carvedilol 3.125 mg PO BID 06/19/20 [History Last Taken 09/11/20] gabapentin 300 mg PO TID 06/19/20 [History Last Taken 09/11/20] food supplemt, lactose-reduced [Ensure Enlive] 120 ml PO 4X/DAY #60 bottle 08/31/20 [Rx Last Taken Unknown] oxycodone 5 mg PO Q6H PRN 3 Days #12 tab 08/31/20 [Rx Last Taken 09/12/20] Allergy/AdvReac Type Severity Reaction Status Date / Time No Known Allergies Allergy Verified 09/12/20 03:33 Family History Other CVA (cerebral vascular accident) Hypertension Surgical History H/O: knee surgery History of colon surgery Social History Smoking Status: Never smoker ROS ROS ED ROS Narrative Denies. Review of Systems ROS Unobtainable: Denies due to encephalopathy Constitutional Constitutional ED: Denies chills or fever(s) Eyes Eyes: Denies change in vision ENT ENT ED: Denies ear pain or sore throat Cardiovascular Cardiovascular: Denies chest pain Respiratory/Chest Respiratory/Chest: Denies cough Gastrointestinal Gastrointestinal: Denies abdominal pain, nausea or vomiting Genitourinary Genitourinary ED: Reports hematuria; Denies dysuria Musculoskeletal Musculoskeletal: Denies myalgias Integumentary Reports rash Neurologic Neurologic: Reports headache(s) Psychiatric Psychiatric: Reports depression Endocrine Endocrinology: Reports polyuria Allergic/Immunologic Allergic/Immunologic ED: Reports urticaria EXAM Physical Exam Narrative Exam Narrative: Elderly male very cachectic and thin. Chronically ill. Vital signs are stable afebrile. He does not look septic or toxic. He is awake and alert. HEENT exam unremarkable atraumatic. Mildly dry mucous membranes. Neck nontender no lymphadenopathy. Lungs coarse breath sounds bilaterally. Equal symmetrical. Few scattered wheezes history of COPD. Chest wall is nontender is a right MediPort in place. Abdomen soft nontender normal bowel sounds no peritoneal signs. Is a left lower quadrant colostomy bag. He also has a Li bag that has bloody urine. Moving all 4 extremities. They are very cachectic and thin. He has 1+ pitting edema both lower extremities which is chronic. No gross bony deformities. Back is thin but nontender. Neurologically is awake and alert. He is moving all 4 extremities. He is answering questions and following commands. Const Vital Signs: 09/12/20 03:24 09/12/20 07:32 Temperature 96.3 F L Temperature Source Temporal Pulse Rate 98 90 Respiratory Rate 23 H 19 H Blood Pressure 155/87 H 110/79 Blood Pressure Mean 109 89 Pulse Ox 100 100 Oxygen Delivery Method Room Air Positive cachectic; Negative for well nourished or well developed Constitutional Narrative: Patient looks very emaciated, cachectic and thin. Most likely due to his cancer and chronic illness. General Appearance ED: cachectic and NAD; Negative for well developed Nutritional Appearance: cachectic HEENT Reports dry mucous membranes Negative for trauma or tenderness Mouth ED: Yes dry mucous membranes Mouth: dry mucous membranes Eyes PERRL and EOMs intact bilaterally Neck no lymphadenopathy, supple and no JVD General: Negative for tenderness Chest Wall inspection of chest normal and palpation of chest normal Chest Narrative: Very thin but nontender. Resp normal respiratory effort Auscultation: wheezes Cardio regular rate, regular rhythm, S1 normal heart sound, S2 normal heart sound and no murmurs GI normal to inspection, nondistended, normoactive bowel sounds, non-tender, non-distended and no masses GI Narrative: Colostomy bag with stool and gas. Auscultation: normoactive bowel sounds Palpation: soft; Negative for tender, guarding or rebound tenderness present Back/Spine no CVA tenderness Back/Spine Narrative: Thin and wasted but nontender. Extremity Extremity Narrative: Nontender extremities. 1+ pitting edema both lower extremities which is chronic. General Extremety ED: Yes edema General Extremity: edema Neuro oriented x3 and CN's II-XII intact bilaterally Sensorium / Orientation: alert; Negative for lethargic or stuporous Motor Exam: strength 5/5 throughout Psych mental status grossly normal Skin no rashes or lesions noted and no wounds MDM MDM MDM Narrative Medical decision making narrative: Healthy gentleman cachectic and very thin from his history of colon cancer metastases. Fell at home states he is having trouble with his Li bag leaking. I will get screening labs. Reportedly hospice is setting credit and collections representative and because he is under hospice care at home. Repeat exam at 6:30 AM patient is doing well. However with his high white count we need to desiccate this further. I had a conversation both the patient and his hospice nurse and the patient does want further evaluation. Urinalysis and chest x-ray will be obtained along with blood cultures and lactic acid. Patient be started on Rocephin and Zithromax for his pneumonia. I will speak to the hospitalist about admission. Lab Data Attestation: I reviewed the patient's lab results. Lab results narrative: White count 22,000. Hemoglobin 11.9. Sodium 133. Gap 10. Creatinine 0.6. Lactic acid 1.5. Chest x-ray consistent with bibasilar lower lobe pneumonia. Which be consistent with his white count. Labs: Laboratory Results - last 24 hr 09/12/20 09/12/20 09/12/20 04:06 04:06 06:48 WBC 22.0 H RBC 3.63 L Hgb 11.9 L Hct 36.6 L MCV 100.8 H MCH 32.8 H MCHC 32.5 RDW Std Deviation 50.9 H RDW Coeff of Harjinder 13.8 Plt Count 464 H MPV 8.5 Immature Gran % (Auto) 1.000 H Neut % (Auto) 88.3 H Lymph % (Auto) 5.6 L Barber % (Auto) 4.6 Eos % (Auto) 0.1 Baso % (Auto) 0.4 Absolute Neuts (auto) 19.5 H Absolute Lymphs (auto) 1.24 Nucleated RBC % 0 Sodium 133 L Potassium 4.0 Chloride 99 Carbon Dioxide 24.0 Anion Gap 10 BUN 19 H Creatinine 0.60 L Estim Creat Clear Calc 49.88 Est GFR (MDRD) Af Amer 165 Est GFR (MDRD) Non-Af 136 BUN/Creatinine Ratio 31.6 H Glucose 87 Lactic Acid 1.5 Calcium 9.7 Total Bilirubin 0.80 AST 32 ALT 18 Alkaline Phosphatase 111 Total Protein 7.5 Albumin 2.9 L Globulin 4.6 H Albumin/Globulin Ratio 0.6 L Radiography Chest X-Ray - ED: 1 View, Read by ED Physician, Read by Radiologist, Heart, Mediastinum, Bony Structures, No Acute Disease and Chronic Changes Diagnostic Testing: Radiology Impression Chest X-Ray 09/12/20 06:34 IMPRESSION: 1. Developing bibasilar (right more than left) infiltrate/pneumonia. Electronically Signed: Servando Gomez MD ([place]) at 7:21 EDT , Service support , Discharge Plan Dx/Rx/DC Orders Clinical Impression: Fall, Right lower lobe pneumonia, Leukocytosis Disposition Disposition: Acute Care Hospital [facility]
[2020-09-12 04:12] LABS: Absolute Lymphocyte Count 1.24 X10^3/uL (0.83-4.51); Absolute Neutrophil Count 19.5 X10^3/uL (2.0-7.7); Basophil# 0.09 X10^3/uL; Basophil% 0.4 % (0-1); Eosinophil# 0.03 X10^3/uL; Eosinophils% 0.1 % (0-5); Hematocrit 36.6 % (40-54); Hemoglobin 11.9 g/dL (13.0-16.5); Lymphocyte # 1.24 X10^3/ul (0.83-4.51); Lymphocyte % 5.6 % (19-41); Mean Corp Hgb Conc 32.5 g/dL (32-36); Mean Corpuscular Hgb 32.8 pg (27.0-32.0); Mean Corpuscular Volume 100.8 fL (80-94); Mean Platelet Vol. 8.5 fl (6.2-12.0); Monocyte# 1.02 X10^3/uL; Monocyte% 4.6 % (0-10); NRBC Flagged by Analyzer 0 % (0-5); Neutrophil # 19.45 X10^3/uL (2.7-7.7); Neutrophil % 88.3 % (47-70); Platelet Count 464 K/mm3 (150-450); RBC Distribution Width CV 13.8 % (11.6-14.6); RBC Distribution Width SD 50.9 fl (35.1-43.9); Red Blood Count 3.63 M/mm3 (4.6-6.2)
[2020-09-12] MEDS: Ondansetron 4 MG/2 ML Vial IV ×4 (04:33→19:48)
[2020-09-12 04:37] LABS: ALB/GLOB Ratio 0.6 RATIO (0.9-2.4); AST(SGOT) 32 U/L (15-37); Alanine Aminotransfer ALT/SGPT 18 U/L (16-61); Albumin, Serum 2.9 g/dL (3.2-5.0); Alkaline Phosphatase 111 U/L (45-117); Anion Gap 10 (5-15); BUN 19 mg/dL (7-18); BUN/Creat Ratio 31.6 RATIO (10-20); Calcium,Total 9.7 mg/dL (8.5-10.1); Chloride 99 mmol/L (98-107); EST Glomerular Filtration Rate 136 mL/min (>60); Est Glom Filt Rate - Afr Amer 165 mL/min (>60); Estimated Creatinine Clearance 49.88 ml/min; Globulin 4.6 g/dL (2.2-4.2); Glucose 87 mg/dL (74-106); Protein, Total 7.5 g/dL (6.4-8.2); Sodium Level 133 mmol/L (136-145)
--- NOTE | 2020-09-12 06:34 | RAD_ITS ---
STUDY: X-RAY CHEST REASON FOR EXAM: Male, 85 years old. possible infection TECHNIQUE: AP COMPARISON: 08/29/2020 FINDINGS: Right chest port stable. Lungs continue to be hyperexpanded with coarsened interstitial fibrotic densities. Interval development of amorphous opacity in the right lung base/infrahilar lung partially obscuring the medial right hemidiaphragm. There is also localized opacity in the left lung base, new since the prior study. No effusion or pneumothorax. Normal size heart. Normal mediastinum and ranjeet. Normal visualized pulmonary arteries. There is atherosclerotic calcification of the aortic arch with tortuosity. No acute bony process. There is no demonstrated abnormality of the visualized soft tissue structures of the upper abdomen. RAD/Chest 1 View (Portable) IMPRESSION: 1. Developing bibasilar (right more than left) infiltrate/pneumonia. Electronically Signed: Servando Gomez MD ([place]) at 7:21 EDT , Service support ,
--- NOTE | 2020-09-12 07:10 | ED.RN ---
asked dr thomas about changing the cath out or just change the bag. Instructed to just change the bag not the cath
[2020-09-12 07:22] LABS: Lactic Acid 1.5 mmol/L (0.4-1.9)
[2020-09-12] MEDS: Ceftriaxone 1 GM/50 ML BAG IV (08:02)
--- NOTE | 2020-09-12 09:19 | HP.PCM.HOS_ITS ---
HPI - General General Date of Admission: 09/12/20 Date of Service: 09/12/20 Chief Complaint: Debility, hematuria HPI Narrative SUSAN VELÁZQUEZ, is a 85 M who presents to the emergency room at [facility] with a complaint of blood in his Li bag along with recent falls at home. A squad was called to bring him into the hospital for evaluation. Patient is currently under hospice care for metastatic rectal cancer. Patient is a poor informant and a review of systems could not be obtained from the patient. Work-up in the emergency room included a CBC which showed an elevated white blood cell count, patient's pulse ox on room air was above 90% and he was in no respiratory distress. Patient had no complaints of cough, chills, or fever to this examiner. Patient's chest x-ray showed vague bilateral basilar infiltrates in the lungs. Urinalysis was not able be obtained from the emergency room at the time of my dictation. Patient's chemistry was abnormal for a BUN of 19, sodium was 133. I was called to admit the patient for pneumonia with sepsis, patient did not understand he was under hospice care and deferred questions to his daughter who is his POA. I had a long talk with his daughter-he does not live with his daughter who is his POA-and his daughter told me that the patient lives with her sister who does not allow her to set foot on her property, the daughter who is the POA is trying to get the patient to move in with her but the patient is unable to pack his belongings to come over to her home. The daughter who is the POA confirms that the patient is under hospice care at this time, I went back and talked with the patient, he would prefer to stay in the hospital at this time and he knows that he needs to transfer his belongings to his daughters home and move in with her. The daughter with whom he lives with has breast cancer and is undergoing chemotherapy at this time, the daughter that is the POA feels that it is her opinion that the daughter that he lives with would like him to move out and the daughter that is the POA questions whether the patient is receiving adequate care at her sister's house. Patient will be admitted to [place] [address] for sepsis-I believe it is possible patie kaleb may have a urinary tract infection due to his chronic indwelling Li, he may also have pneumonia as demonstrated by the chest x-ray but the patient does not show obvious signs or symptoms of pneumonia at this time. I have decided to change the patient to Levaquin, patient's urine cultures obtained recently when he was in the hospital grew out 3 different organisms, these organisms were all susceptible to Levaquin. PFSH Medical History Alcohol abuse Cancer Chronic indwelling Li catheter Chronic pain Congestive heart failure (CHF) COPD (chronic obstructive pulmonary disease) Hearing loss, left Hearing loss, right Hypertension Smoker Home Medications atorvastatin 40 mg PO QHS 06/19/20 [History Last Taken 09/11/20] carvedilol 3.125 mg PO BID 06/19/20 [History Last Taken 09/11/20] gabapentin 300 mg PO TID 06/19/20 [History Last Taken 09/11/20] food supplemt, lactose-reduced [Ensure Enlive] 120 ml PO 4X/DAY #60 bottle 08/31/20 [Rx Last Taken Unknown] oxycodone 5 mg PO Q6H PRN 3 Days #12 tab 08/31/20 [Rx Last Taken 09/12/20] Allergy/AdvReac Type Severity Reaction Status Date / Time No Known Allergies Allergy Verified 09/12/20 03:33 Family History Other CVA (cerebral vascular accident) Hypertension Surgical History H/O: knee surgery History of colon surgery Social History Smoking Status: Current some day smoker tobacco type: cigarettes ROS ROS Narrative Review of systems is unobtainable at this time due to patient's generalized debility and mental condition. Medical information was obtained from the patient's medical record and the patient's daughter who is his POA. Review of Systems ROS Unobtainable: due to mental condition Vital Signs Vital Signs Vital Signs: 09/12/20 03:24 09/12/20 07:32 09/12/20 08:38 Temperature 96.3 F L 96.3 F L Temperature Source Temporal Temporal Pulse Rate 98 90 90 Respiratory Rate 23 H 19 H 19 H Blood Pressure 155/87 H 110/79 110/76 Blood Pressure Mean 109 89 87 Blood Pressure Source Blood Pressure Position Blood Pressure Location Pulse Ox 100 100 100 Oxygen Delivery Method Room Air Room Air 09/12/20 08:55 Temperature 98.0 F Temperature Source Oral Pulse Rate 99 Respiratory Rate 18 Blood Pressure 108/72 Blood Pressure Mean 84 Blood Pressure Source Monitor Blood Pressure Position Semi-Fowlers Blood Pressure Location Right Arm Pulse Ox 100 Oxygen Delivery Method Room Air Weight Weight: 58 kg Body Mass Index (BMI) 18.3 Physical Exam Const alert, oriented x3 and no apparent distress Constitutional Narrative: Patient appears good take and malnourished, he appears frail, he is lethargic General Appearance: cooperative, well kempt and well developed Orientation / Consciousness: awake, oriented to person, oriented to place, oriented to time and lethargic HEENT normocephalic, head/scalp atraumatic, hearing grossly normal bilaterally and moist oral mucous membranes Eyes PERRL, EOMs intact bilaterally and conjunctivae normal Neck nuchal rigidity, supple, no JVD, thyroid normal and no carotid bruits General: trachea midline Resp normal respiratory effort, no retractions, no use of accessory muscles and clear to auscultation bilaterally Auscultation: Negative for rales, rhonchi or wheezes Cardio regular rate, regular rhythm, S1 normal heart sound, S2 normal heart sound, no murmurs, no rub and no gallops GI normal to inspection, nondistended, normoactive bowel sounds, soft to palpation, non-tender and non-distended Extremity Extremity Narrative: There is significant edema in the lower legs bilaterally, it is +2 mm edema Skin no rashes or lesions noted and skin turgor normal General Skin Exam: no breakdown Neuro oriented x3, CN's II-XII intact bilaterally, no focal motor deficits and no sensory deficits noted Speech: speech normal Psych thought process normal Psych Narrative: Patient's affect is flat, he is lethargic Results Lab / Micro Data Result Diagrams: 09/12/20 04:06 09/12/20 04:06 Labs: Laboratory Results - last 24 hr 09/12/20 04:06: WBC 22.0 H, RBC 3.63 L, Hgb 11.9 L, Hct 36.6 L, MCV 100.8 H, MCH 32.8 H, MCHC 32.5, RDW Std Deviation 50.9 H, RDW Coeff of Harjinder 13.8, Plt Count 464 H, MPV 8.5, Immature Gran % (Auto) 1.000 H, Neut % (Auto) 88.3 H, Lymph % (Auto) 5.6 L, [place] % (Auto) 4.6, Eos % (Auto) 0.1, Baso % (Auto) 0.4, Absolute Neuts (auto) 19.5 H, Absolute Lymphs (auto) 1.24, Nucleated RBC % 0 09/12/20 04:06: Sodium 133 L, Potassium 4.0, Chloride 99, Carbon Dioxide 24.0, Anion Gap 10, BUN 19 H, Creatinine 0.60 L, Estim Creat Clear Calc 49.88, Est GFR (MDRD) Af Amer 165, Est GFR (MDRD) Non-Af 136, BUN/Creatinine Ratio 31.6 H, Glucose 87, Calcium 9.7, Total Bilirubin 0.80, AST 32, ALT 18, Alkaline Phospha tase 111, Total Protein 7.5, Albumin 2.9 L, Globulin 4.6 H, Albumin/Globulin Ratio 0.6 L 09/12/20 06:48: Lactic Acid 1.5 Radiology Impression Chest X-Ray 09/12/20 06:34 IMPRESSION: 1. Developing bibasilar (right more than left) infiltrate/pneumonia. Electronically Signed: Servando Gomez MD ([place]) at 7:21 EDT , Service support , Assessment & Plan Assessment/Plan (1) History of colorectal cancer: PLAN: 1. Sepsis secondary to pneumonia and suspected urinary tract infection secondary to chronic indwelling Li catheter-patient will be admitted to [facility] 3, he will receive IV fluids and IV Levaquin, he will need to be seen by long term care social worker for discharge planning as well as case management. #2 community-acquired pneumonia-patient will be on IV Levaquin #3 probable urinary tract infection-urinalysis is pending at this time, patient will be given IV Levaquin #4 dehydration-patient will receive IV fluids #5 metastatic rectal cancer-patient was signed up for hospice before he came to the emergency room today, daughter would like him to resume hospice care after discharge #6 generalized debility secondary to #5-patient will be seen by PT and OT while he is in the hospital #7 severe COPD-patient uses no oxygen at home and he is not hypoxic in the emergency room. #8 severe protein and caloric malnutrition #7 anemia of chronic disease (rectal cancer) Charges/Coding Visit Charges Inpatient E&M: 30899 Init Hosp L3
[2020-09-12] MEDS: 0.9% Saline Lock 10 ML Syringe IV ×2 (09:43→12:12)
[2020-09-12] MEDS: Acetaminophen 325 MG Tablet 650 MG PO (09:43)
[2020-09-12] MEDS: 0.9% Normal Saline 1,000 ML 100 ML IV ×2 (09:51→19:49)
[2020-09-12] MEDS: levoFLOXacin IV 500 MG/100 ML BAG 100 MG IV (10:00)
[2020-09-12] MEDS: Enoxaparin 40 MG/0.4 ML Syringe SC (10:33)
--- NOTE | 2020-09-12 11:17 | CASEMGMT ---
Social Work Note REJI received call from Physician to provide update on pt's social history. Pt was living with daughter, who is not POA, and pt is wanting to transition to living with his daughter who is POA. The pt's daughter's do not talk to each other and the one daughter is having a hard time getting pt's personal belongings due to not being allowed on the sister's property. Pt's one daughter, who he is currently living with, has breast cancer and receiving chemo and unable to provide care for pt. REJI received message from Odette Bonner at [facility] asking if [facility] can have a general inpatient contract for pt. Odette provided office number and cell number for her. Office number: [phone] Cell Phone number: [phone]. REJI placed a call to Odette Bonner at [facility] to gather more information. Odette states pt is active with Hospice services through [facility] and does ask about having a General Inpatient Contract to treat pt while pt is at [facility]. dOette states pt is still active with their Hospice Service and want their RN to provide Hospice care for pt while pt is at [facility]. REJI informed pt that this worker is not sure how that works while pt is at [facility] but can ask. REJI asked Odette if she is aware of social situation at home between the two daughters. Odette states she knows the one daughter, the one pt is not currently living with, wants the pt to stay with her. Odette states pt has told them before that he wants to go to a facility as she thinks pt thinks he is not getting adequate care at home but pt's daughters want to stay with them. Odette states pt is alert and orientated though and able to make own decisions. REJI informed Odette that physician had stated this morning that pt was unaware he was enrolled in Hospice care. Odette asked if pt's confusion could be related to pt's Sepsis, REJI informed Odette that this worker is not sure. Physician had stated pt will remain at [facility] for a few days. REJI informed Odette that RN TIA/SW will be meeting with pt to confirm discharge plans and will update Odette once plans have been confirmed. Odette states understanding. REJI placed a call to Roya Hernandez to ask for assistance regarding General Inpatient Contract for Hospice Services as this worker is not sure what that entails. Roya Mcdonald to investigate. SW received call from Roya Hernandez stating [facility] want to treat pt while at [facility] like pt is at an inpatient Hospice unit and get flat rate fee. [facility] to speak with their providers to determiner if any of them are in contract with [facility]. If none are in contract, pt will need to revoke Hospice Services while at [facility] and then resume Hospice services at discharge. SW to continue to follow. Jodie Apple SUPERVISOR SOUND TECHNICIAN, COLD ROLLING SUPERVISOR
--- NOTE | 2020-09-12 12:02 | NURSING ---
PT C/O CONTINUED NAUSEA AFTER ZOFRAN X2 DOSES. DR PIERRE MADE AWARE & NEW ORDER RECEIVED.
[2020-09-12] MEDS: Metoclopramide 10 MG/2 ML Vial 5 MG IV (12:12)
[2020-09-12] MEDS: DiphenhydrAMINE 50 MG/ML Syringe 12.5 MG IV (12:12)
[2020-09-12] MEDS: Ipratropium/Albuterol Sulfate 3 ML AMPUL.NEB INHALATION ×2 (13:04→19:35)
[2020-09-12 13:37] LABS: Mucous, Urine 0 SEEN /hpf (<or=2+); Squamous Epithelial Cells - UA 0 SEEN /hpf (0-5)
--- NOTE | 2020-09-12 13:44 | NURSING ---
DR PIERRE MADE AWARE NO U.O.P FOR PT CATHETER SINCE ADMIT. ORDER TO BLADDER SCAN = 400ML. ORDER RECEIVED.
[2020-09-12 13:52] LABS: Color, Urine Amber (Yellow); Glucose, Dipstick Normal (Normal); Ketone-Dipstick 50 mg/dl (Negative); Leukocyte Esterase-Dipstick 500 /ul (Negative); Nitrite-Dipstick Positive (Negative); Occult Blood-Urine 250 /ul (Negative); Protein-Dipstick 100 mg/dl (Negative); Specific Gravity, Urine 1.015 (1.002-1.030); Urine Clarity Sl. Cloudy (Clear); Urine Urobilinogen 1 mg/dl (Normal)
[2020-09-12 13:57] LABS: Urine Bilirubin Dipstick 1 mg/dL (Negative)
[2020-09-12 14:00] LABS: Amorphous Sediment 2+; Bacteria 4+ /hpf (None Seen); Red Blood Cells-Urine 50-100 SEEN /hpf (0-5); White Blood Cells >100 SEEN /hpf (0-5)
--- NOTE | 2020-09-12 15:16 | CASEMGMT ---
Social Work Note SW in to speak with pt. Pt is alert and orientated x3 but appears very hard of hearing and slow to respond to questions. Pt confirms he is from home with is daughter Aan with [facility]. Pt states he was getting adequate care at his daughter's Ana home. Pt states when he leaves [facility] he will be going to this other daughter's Connie's house with [facility]. SW asked pt about advanced directives. Pt states he has completed both HCPOA and LW and states his daughter Connie is his HCPOA. SW to continue to follow. Jodie Apple INTERNAL CONTROLS CONSULTANT, WARPER TENDER
--- NOTE | 2020-09-12 15:53 | CASEMGMT ---
RN CM Note: This RN CM spoke with Odette Bonner from [facility] this AM regarding request for a contract with [facility] to provide care under pt's hospice benefit. This RN CM explained to Odette that provider(s) from [place] would need to have gone through the credentialing process and have privileges to practice medicine at [facility]. Referred Odette to the Hasher Operator. Odette states she would call this RN CM after deciphering this process and let us know if hospice was being revoked or if they had privileges to treat the patient at [facility]. This RN CM received a call from [facility] from [facility] who states that they have visited pt and the patient has signed the paperwork revoking hospice services at this time. The plan is to resume hospice services at discharge. [facility] states that they do have a oncology social work involved in the patient's care but they have been active for only a week and a half so have just begun those relationships. A oncology social work would continue to be involved upon discharge back to their service. Roya Day RN CM
[2020-09-12] MEDS: Menthol/Lanolin/Calamine/Znox 113 GM Tube 1 APPLIC TOPICAL ×2 (16:13→20:48)
--- NOTE | 2020-09-12 16:40 | NT.THERAPY_ITS ---
Medical Nutrition Therapy - History Nutrition Services has been consulted to:: Manage nutrient details of diet order Current diet/nutrition support order:: Regular diet. 120ml ensure enlive 4 times per ay w/ medpass - Anthropometric Measurements Height:: 5 ft 10 in Weight:: 58 kg Body Mass Index (BMI):: 18.3 - Relevant Labs Relevant Labs:: WBC 22.0 K/mm3 (4.4-11.0) H 09/12/20 04:06 RBC 3.63 M/mm3 (4.6-6.2) L 09/12/20 04:06 Hgb 11.9 g/dL (13.0-16.5) L 09/12/20 04:06 Hct 36.6 % (40-54) L 09/12/20 04:06 MCV 100.8 fL (80-94) H 09/12/20 04:06 MCH 32.8 pg (27.0-32.0) H 09/12/20 04:06 RDW Std Deviation 50.9 fl (35.1-43.9) H 09/12/20 04:06 Plt Count 464 K/mm3 (150-450) H 09/12/20 04:06 Immature Gran % (Auto) 1.000 % (0.0-0.9) H 09/12/20 04:06 Neut % (Auto) 88.3 % (47-70) H 09/12/20 04:06 Lymph % (Auto) 5.6 % (19-41) L 09/12/20 04:06 Absolute Neuts (auto) 19.5 X10^3/uL (2.0-7.7) H 09/12/20 04:06 Sodium 133 mmol/L (136-145) L 09/12/20 04:06 BUN 19 mg/dL (7-18) H 09/12/20 04:06 Creatinine 0.60 mg/dL (0.70-1.30) L 09/12/20 04:06 BUN/Creatinine Ratio 31.6 RATIO (10-20) H 09/12/20 04:06 Albumin 2.9 g/dL (3.2-5.0) L 09/12/20 04:06 Globulin 4.6 g/dL (2.2-4.2) H 09/12/20 04:06 Albumin/Globulin Ratio 0.6 RATIO (0.9-2.4) L 09/12/20 04:06 - Assessment Food and Nutrient Intake: 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 Pt unable to give accurate wt hx but, per EMR wt about 3 months ago was 67.4 Kg; calculated~14% wt loss x 3 months is significant for severe protein-calorie malnutrition. Pt with obvious severe muscle and fat wasting in the orbitals, clavicle, upper body and arms. Pt is receiving ensure enlive w/ medpass but, refused to to not feeling well/nausea. Noted that pt is receiving hospice care. - Nutrition Diagnosis: Clinical Problem Chronic Disease or Condition Related Malnutrition Clinical Problem - Etiology: Severe protein-calorie malnutrition in the context of chronic disease related to increased energy expenditure/metastatic disease Clinical Problem - Signs/Symptoms: as evidenced by 14% wt loss x 3 months, severe muscle and fat wasting in the orbitals, clavicle, upper body and arms in addition to ongoing poor PO meeting less than 50% estimated nutrition needs x 3- 6 months. Status: Active Problem - Protein Calorie Malnutrition Evidence of Malnutrition Exists: Yes Severe Protein Calorie Malnutrition:: Chronic - Nutrition Intervention Nutrition Prescription: Estimated nutrition needs~6099-0596 kcal (30 kcal/Kg) and ~80-90 gm pro (1.5 gm pro/Kg) per day. Estimated fluid needs~1800ml/day (30 ml/Kg). - Food / Nutrient Delivery Interventions Summary of nutrition intervention:: Provide oral nutrition supplement Nutrition support ordered as / adjusted to:: Continue regular diet and ensure enlive w/ medpass (700 calories and 40 gm protein) as ordered. Will add ensure pudding or magic cup as tolerated w/ meals for extra calories and protein if consumed. Nutrition education provided?: No - pt receiving hospice care - MNT Monitoring Active Nutrition Patient: Yes Nutrition Status: Requires Follow Up 3-5 Days
[2020-09-12] MEDS: oxyCODONE 5 MG Tablet PO (20:05)
[2020-09-12] MEDS: Carvedilol 3.125 MG TABLET PO (20:06)
[2020-09-12] MEDS: morphine SR 15 MG Tablet PO (20:48)
[2020-09-13 02:30] VITALS: BP 129/62; PULSE 100; RESP 18; TEMP 36.9; O2SAT 98
[2020-09-13] MEDS: Ondansetron 4 MG/2 ML Vial IV (02:37)
[2020-09-13] MEDS: 0.9% Normal Saline 1,000 ML 100 ML IV ×2 (05:36→16:47)
[2020-09-13 06:08] LABS: Basophil# 0.07 X10^3/uL; Basophil% 0.4 % (0-1); Eosinophil# 0.05 X10^3/uL; Eosinophils% 0.3 % (0-5); Hematocrit 32.1 % (40-54); Hemoglobin 10.4 g/dL (13.0-16.5); Lymphocyte % 4.1 % (19-41); Mean Corp Hgb Conc 32.4 g/dL (32-36); Mean Corpuscular Hgb 33.1 pg (27.0-32.0); Mean Corpuscular Volume 102.2 fL (80-94); Mean Platelet Vol. 8.8 fl (6.2-12.0); Monocyte# 1.41 X10^3/uL; Monocyte% 7.2 % (0-10); NRBC Flagged by Analyzer 0 % (0-5); Neutrophil % 87.1 % (47-70); Platelet Count 357 K/mm3 (150-450); RBC Distribution Width CV 14.2 % (11.6-14.6); RBC Distribution Width SD 53.2 fl (35.1-43.9); Red Blood Count 3.14 M/mm3 (4.6-6.2); White Blood Count 19.5 K/mm3 (4.4-11.0)
[2020-09-13 07:15] VITALS: PULSE 103; RESP 20
[2020-09-13] MEDS: Ipratropium/Albuterol Sulfate 3 ML AMPUL.NEB INHALATION ×2 (07:15→15:32)
[2020-09-13 08:15] VITALS: BP 125/76; PULSE 90; RESP 16; TEMP 36.6; O2SAT 100
[2020-09-13] MEDS: Gabapentin 300 MG Capsule PO ×3 (09:50→17:43)
[2020-09-13] MEDS: Enoxaparin 40 MG/0.4 ML Syringe SC (09:50)
[2020-09-13] MEDS: Carvedilol 3.125 MG TABLET PO ×2 (09:50→21:19)
[2020-09-13] MEDS: Menthol/Lanolin/Calamine/Znox 113 GM Tube 1 APPLIC TOPICAL ×2 (09:51→21:19)
[2020-09-13] MEDS: morphine SR 15 MG Tablet PO ×2 (09:56→21:19)
[2020-09-13] MEDS: levoFLOXacin IV 500 MG/100 ML BAG 100 MG IV (09:57)
--- NOTE | 2020-09-13 11:35 | CASEMGMT ---
MICHELE WEBER Assessment: Face to Face with pt for initial transition planning/care coordination assessment. RN TIA introduced self and role at [facility], pt voices understanding and consents to assessment. Pt lying in bed, states he just woke from a nap and is groggy. Pt requests this CM call his dtr Connie for answers to the assessment questions. TC to dtr Connie Cueto, she verbally completed assessment. Care providers, pharmacy, and demographics verified/updated. Admitting Dx: Bibasalar pna, leukocytosis PCP: Ramu Specialists: Keli, onc Preferred Pharmacy: [facility] Retail while pt at [facility]. Insurance: [employer] Prescription Benefit: yes LW/HPOA: Connie states she is the DPOA. She is aware this is not on file at [facility] and she may bring in to be scanned. LNOK: Ana Lora, dtr; Connie Cueto, dtr Living Arrangements: Pt currently lives with dtr Ana. Pt will be moving after this hospitalization to live with dtr Connie and her 16 year old son in a single story house with no steps to enter. She reports pt does not bathe and prior he was able to dress himself. Transportation: Pt does not drive, dtr Connie will transport pt as needed. DME/HHC/SNF: Pt has a walker. Connei states she is working with hospice to get a hospital bed and to have O2 on hand. She states pt has had HHC and stayed at SNF. She is unsure of the names of them. She states pt was living in [place] and recently moved back to [place] at the end of April. Pt dtr states no concerns with going home at time of dc. Pt dtr states no further concerns/needs. CM to follow. Advised pt to ask CM if any further question/concerns/needs arise, voices understanding. Pt Dtr Goal: Home at her residence (Connie) with hospice care Plan: Dtr Connie's home with hospice care. Hospice to meet pt dtr Connie between 1-2 in pt room.
--- NOTE | 2020-09-13 11:48 | CASEMGMT ---
Received tc from Chiquis at [facility] requesting referral information. Faxed to [phone] at this time.
[2020-09-13 14:00] VITALS: BP 127/74; PULSE 83; RESP 16; TEMP 36.6; O2SAT 100
[2020-09-13 15:43] VITALS: PULSE 100; RESP 16
--- NOTE | 2020-09-13 17:15 | PN.HOSP_ITS ---
Subjective Subjective Patient was seen and examined today, he does not voice any complaints of shortness of breath or chest discomfort, he does not complain of any fevers or chills. I talked to his daughter who is his POA, she states that she has his belongings moved out of her sisters home, I stated that the patient would be ready for discharge tomorrow if he remained medically stable. I am going to repeat a CBC and chest x-ray in the morning. Objective Data Objective Data Vital Signs: Vital Signs Temp Pulse Resp BP Pulse Ox 97.9 F 100 16 127/74 H 100 09/13/20 14:00 09/13/20 15:43 09/13/20 15:43 09/13/20 14:00 09/13/20 14:00 Oxygen Delivery Method Room Air Weight: 58 kg Body Mass Index (BMI) 18.3 Intake & Output: Intake and Output for Last 24 Hours 09/11/20 09/12/20 09/13/20 23:59 23:59 23:59 Intake Total 1756.67 / 1756.67 2386.67 / 2386.67 Output Total 475 / 475 600 / 600 Balance 1281.67 / 1281.67 1786.67 / 1786.67 Lab / Micro Data Result Diagrams: 09/13/20 05:54 09/12/20 04:06 Labs: Laboratory Results - last 24 hr 09/13/20 05:54: WBC 19.5 H, RBC 3.14 L, Hgb 10.4 L, Hct 32.1 L, MCV 102.2 H, MCH 33.1 H, MCHC 32.4, RDW Std Deviation 53.2 H, RDW Coeff of Harjinder 14.2, Plt Count 357, MPV 8.8, Immature Gran % (Auto) 0.900, Neut % (Auto) 87.1 H, Lymph % (Auto) 4.1 L, [place] % (Auto) 7.2, Eos % (Auto) 0.3, Baso % (Auto) 0.4, Absolute Neuts (auto) 17.0 H, Absolute Lymphs (auto) 0.80 L, Nucleated RBC % 0 Micro: Microbiology 09/12/20 13:30 Urine Catheter - Li Urine Culture - Preliminary Mixed Gram Positive Organisms Physical Exam Narrative Physical Exam Const alert, oriented x3 and no apparent distress Constitutional Narrative: Patient appears good take and malnourished, he appears frail, he is lethargic General Appearance: cooperative, well kempt and well developed Orientation / Consciousness: awake, oriented to person, oriented to place, oriented to time and lethargic HEENT normocephalic, head/scalp atraumatic, hearing grossly normal bilaterally and moist oral mucous membranes Eyes PERRL, EOMs intact bilaterally and conjunctivae normal Neck nuchal rigidity, supple, no JVD, thyroid normal and no carotid bruits General: trachea midline Resp normal respiratory effort, no retractions, no use of accessory muscles and clear to auscultation bilaterally Auscultation: Negative for rales, rhonchi or wheezes Cardio regular rate, regular rhythm, S1 normal heart sound, S2 normal heart sound, no murmurs, no rub and no gallops GI normal to inspection, nondistended, normoactive bowel sounds, soft to palpation, non-tender and non-distended Extremity Extremity Narrative: There is significant edema in the lower legs bilaterally, it is +2 mm edema Skin no rashes or lesions noted and skin turgor normal General Skin Exam: no breakdown Neuro oriented x3, CN's II-XII intact bilaterally, no focal motor deficits and no sensory deficits noted Speech: speech normal Psych thought process normal Psych Narrative: Patient's affect is flat, he is lethargic, he responds appropriately to questions however Assessment & Plan Assessment/Plan (1) History of colorectal cancer: PLAN: 1. Sepsis secondary to pneumonia and suspected urinary tract infection secondary to chronic indwelling Li catheter-continue present antibiotic coverage for now, cultures are pending #2 community-acquired pneumonia-patient will be on IV Levaquin #3 probable urinary tract infection-urinalysis is pending at this time, patient will be given IV Levaquin #4 dehydration-I have decided to decrease patient's IV fluid to 75 cc/h #5 metastatic rectal cancer-patient was signed up for hospice before he came to the emergency room today, daughter would like him to resume hospice care after discharge, hospice saw the patient today with his daughter #6 generalized debility secondary to #5-patient will be seen by PT and OT while he is in the hospital #7 severe COPD-patient uses no oxygen at home and he is not hypoxic in the emergency room. #8 severe protein and caloric malnutrition #7 anemia of chronic disease (rectal cancer) Charges/Coding Visit Charges Inpatient E&M: 82439 Subs Hosp L2
[2020-09-13 20:00] VITALS: BP 129/74; PULSE 85; RESP 16; TEMP 36.8; O2SAT 99
[2020-09-14 02:00] VITALS: BP 115/70; PULSE 86; RESP 16; TEMP 36.9; O2SAT 95
--- NOTE | 2020-09-14 05:55 | RAD_ITS ---
STUDY: X-RAY CHEST REASON FOR EXAM: Male, 85 years old. Shortness of breath. History of pneumonia. TECHNIQUE: AP and lateral views of the chest. COMPARISON: Comparison is made with prior study dated 09/12/2020. FINDINGS: A right-sided portacatheter is in situ with the tip in the proximal portion of the superior vena cava. Hyperinflation. Decreased bronchovascular markings in the upper lobes suggestive of emphysematous change. Since prior study, there has been progressive increased markings at the lung bases suggestive of bibasilar atelectasis and/or infiltrate superimposed on scarring. Blunting of both clustering angles posteriorly. Normal size heart. Normal mediastinum and ranjeet. Normal visualized pulmonary arteries. There is atherosclerotic calcification of the aortic arch with tortuosity. There are diffuse degenerative changes of the visualized thoracic spine. Normal visualized ribs, clavicles, and shoulders. There is no demonstrated abnormality of the visualized soft tissue structures of the upper abdomen. RAD/Chest PA and Lateral IMPRESSION: Progressive bibasilar atelectasis and/or infiltrates. Follow-up is recommended. Electronically Signed: Anjel Glass MD at 8:38 EDT , Service support ,
[2020-09-14] MEDS: 0.9% Normal Saline 1,000 ML 75 ML IV (06:03)
[2020-09-14 06:13] LABS: Absolute Lymphocyte Count 0.84 X10^3/uL (0.83-4.51); Absolute Neutrophil Count 10.6 X10^3/uL (2.0-7.7); Basophil# 0.05 X10^3/uL; Basophil% 0.4 % (0-1); Eosinophil# 0.17 X10^3/uL; Eosinophils% 1.3 % (0-5); Hematocrit 29.2 % (40-54); Hemoglobin 9.5 g/dL (13.0-16.5); Lymphocyte # 0.84 X10^3/ul (0.83-4.51); Lymphocyte % 6.5 % (19-41); Mean Corp Hgb Conc 32.5 g/dL (32-36); Mean Corpuscular Hgb 32.5 pg (27.0-32.0); Mean Platelet Vol. 9.1 fl (6.2-12.0); Monocyte# 1.09 X10^3/uL; Monocyte% 8.4 % (0-10); NRBC Flagged by Analyzer 0 % (0-5); Neutrophil # 10.62 X10^3/uL (2.7-7.7); Neutrophil % 82.3 % (47-70); Platelet Count 303 K/mm3 (150-450); RBC Distribution Width CV 14.2 % (11.6-14.6); RBC Distribution Width SD 51.7 fl (35.1-43.9); Red Blood Count 2.92 M/mm3 (4.6-6.2); White Blood Count 12.9 K/mm3 (4.4-11.0)
[2020-09-14 09:40] VITALS: BP 108/65; PULSE 95; RESP 18; TEMP 36.8; O2SAT 96
[2020-09-14] MEDS: morphine SR 15 MG Tablet PO (09:43)
[2020-09-14] MEDS: Carvedilol 3.125 MG TABLET PO (09:43)
[2020-09-14] MEDS: Gabapentin 300 MG Capsule PO ×2 (09:43→13:45)
[2020-09-14] MEDS: Menthol/Lanolin/Calamine/Znox 113 GM Tube 1 APPLIC TOPICAL (09:47)
[2020-09-14] MEDS: levoFLOXacin IV 500 MG/100 ML BAG 100 MG IV (09:49)
--- NOTE | 2020-09-14 10:30 | PCM.DC ---
Discharge Instructions Diet Discharge Diet: No restrictions Activity Discharge Activity: Return to Normal Activity Weight Bearing Status: Weight bearing as tolerated Follow Up Care Test Results: Test results from this visit will be discussed in further detail at your follow-up appointment, if applicable. Discharge Plan Admission Admit Date/Time: 09/12/20 09:09 Primary Reason for Your Visit: Pneumonia, urinary tract infection Attending Provider: Jay Riley Primary Care Provider: Dread Guallpa Instructions Additional Instructions / Restrictions: Follow-up with hospice as directed Discharge Orders/Prescriptions Prescriptions: New levofloxacin 750 mg tablet 750 mg PO DAILY Qty: 7 RF: 0 albuterol sulfate [ProAir HFA] 90 mcg/actuation HFA aerosol inhaler 2 puff inhalation Q6H PRN (Reason: shortness of breath or wheezing) Qty: 8.5 RF: 0 Continued carvedilol 3.125 MG tablet 3.125 mg PO BID RF: 0 gabapentin 100 MG capsule 300 mg PO TID RF: 0 Ensure Enlive 0.08 gram-1.5 kcal/mL Liquid 120 ml PO 4X/DAY Qty: 60 RF: 0 oxycodone 5 mg tablet 5 mg PO Q6H PRN (Reason: pain) 3 Days Qty: 12 RF: 0 morphine 15 mg Tablet Extended Release 15 mg PO Q12H RF: 0 Discontinued atorvastatin 40 MG tablet 40 mg PO QHS RF: 0 Referrals / Follow Up: Dread Guallpa MD [Primary Care Provider] - Dolly Jimenez MD [STAFF PHYSICIAN] - Within 1 Week Disposition Disposition (needs filled in before D/C Order can be placed): Hospice in Home
[2020-09-14] MEDS: 0.9% Saline Lock 10 ML Syringe IV (11:12)
[2020-09-14] MEDS: oxyCODONE 5 MG Tablet PO (11:12)
[2020-09-14 11:20] VITALS: PULSE 98; RESP 18
[2020-09-14] MEDS: Ipratropium/Albuterol Sulfate 3 ML AMPUL.NEB INHALATION (11:20)
--- NOTE | 2020-09-14 11:54 | PHA.DC.MR ---
Pharmacy Service has performed discharge medication reconciliation for this patient. The patient's discharge medication list was reviewed for discrepancies and discrepancies were resolved. Home Medications carvedilol 3.125 mg PO BID 06/19/20 gabapentin 300 mg PO TID 06/19/20 Ensure Enlive 120 ml PO 4X/DAY #60 bottle 08/31/20 oxycodone 5 mg PO Q6H PRN 3 Days #12 tab 08/31/20 morphine 15 mg PO Q12H 09/12/20 albuterol sulfate [ProAir HFA] 2 puff INHALATION Q6H PRN #8.5 g 09/14/20 levofloxacin 750 mg PO DAILY #7 tab 09/14/20
--- NOTE | 2020-09-14 12:12 | CASEMGMT ---
Social Work Note REJI placed a call to [facility] and updated Kat that pt is being discharged home today. Kat requests discharge paperwork be faxed to [place] at [phone]. REJI faxed discharge paperwork to [facility]. Jodie Apple YARN CLEANER, FAST FOOD SALES ASSISTANT
--- NOTE | 2020-09-14 14:29 | CASEMGMT ---
Social Work Note SW received message from [facility] requesting Hospice order to be entered and then faxed to [phone]. SW updated physician. SW faxed Hospice order to [facility]. Jodie Apple CONVEYOR TECHNICIAN, HYDRODYNAMICS TEACHER
[2020-09-14 17:45] VITALS: BP 129/69; PULSE 81; RESP 16; TEMP 36.5; O2SAT 98
--- NOTE | 2020-09-19 20:29 | DS.PCM_ITS ---
Providers Date of Admission: 09/12/20 Date of Discharge: 09/14/20 Primary Care Physician: Dr. Dread Guallpa MD Consultations 09/14/20 13:34 Consult: Hospice / Palliative Care Routine Consulting Provider: [facility] Reason for Consult: ongoing care EMERGENT Consult: No MD Notified: Yes Date Notified: 09/14/20 Time Notified: 13:34 Method of Notification: Verbal Reason For Visit: SEPSIS / PNEUMONIA Diagnosis Discharge Diagnosis (1) History of colorectal cancer: Status: Chronic Code(s): Z85.048 - Personal history of other malignant neoplasm of rectum, rectosigmoid junction, and anus Plan: 1. Sepsis secondary to community-acquired pneumonia-organism unknown #2 dehydration #3 metastatic rectal cancer #4 generalized debility secondary to multiple medical problems including metastatic rectal cancer #5 severe COPD #6 severe protein caloric malnutrition #7 anemia of chronic disease (rectal cancer) #8 bacteriuria without evidence of acute urinary tract infection Medications at Discharge Home Medications carvedilol 3.125 mg PO BID 06/19/20 gabapentin 300 mg PO TID 06/19/20 Ensure Enlive 120 ml PO 4X/DAY #60 bottle 08/31/20 oxycodone 5 mg PO Q6H PRN 3 Days #12 tab 08/31/20 morphine 15 mg PO Q12H 09/12/20 albuterol sulfate [ProAir HFA] 2 puff INHALATION Q6H PRN #8.5 g 09/14/20 levofloxacin 750 mg PO DAILY #7 tab 09/14/20 Hospital Course Operations None Procedures None Summary of Care Provided Minutes Spent on Discharge: 32 Hospital Course: This 85-year-old white male with a history of metastatic rectal cancer was seen in the emergency room at [facility] after seeking evaluation for frequent falls with weakness at home and hematuria. Patient has a chronic Li. Work-up in the emergency room included a CBC which showed an elevated white blood cell count, patient was in no respiratory distress, pulse ox was above 90% on room air. Patient's chest x-ray showed vague bilateral basilar infiltrates in the lungs felt to indicate community- acquired pneumonia. Chemistry was abnormal for a BUN of 19. Patient had been under hospice care at home and appeared a poor informant, there had been some stress at home where the patient was living due to the fact his daughter was providing care for him and she had breast cancer. A 2nd daughter was his JUDSON palmer d requested that the patient move in with him but had problems moving the patient's belongings to her home due to the fact that she did not get along with her sister and was not able to come to her property. Patient was admitted to [place] [address], he was placed on IV antibiotics, urine culture was obtained and showed mixed organisms suggestive of chronic colonization. Patient remained weak during his hospitalization, he was seen in consultation by hospice and the patient agreed to sign up again with hospice at the time he was discharged from the hospital. On 09/14/2020, patient was seen and examined: On examination he appeared cachectic and unwell. Vital signs as documented. Skin warm and dry and without overt rashes. Neck without JVD, neck was supple, trachea midline, thyroid was normal. Lungs clear bilaterally, normal air movement was noted. Heart exam notable for regular rhythm, normal sounds and absence of murmurs, rubs or gallops. Abdomen unremarkable and without evidence of organomegaly, masses, or abdominal aortic enlargement. Bowel sounds are present, abdomen is not distended. Extremities nonedematous, no cyanosis was noted, no clubbing was noted. Neuro: Cranial nerves II through XII are grossly intact, no focal motor deficits were noted, sensation to light touch and pinprick intact, motor exam 5/5 throughout. Psych: Patient is alert, patient was a poor informant, he a ppeared depressed Patient was discharged on 09/14/2020 to his daughters home with hospice care there. Patient's diagnosis was terminal. Prognosis was poor, patient was stable at the time of discharge. Weight / BMI Weight Weight: 58 kg Body Mass Index (BMI) 18.3 ABG / Lab / Microbiology Data Result Diagrams: 09/14/20 05:41 09/12/20 04:06 Microbiology: Microbiology 09/12/20 06:48 Blood Culture (Wb) - Anticubital Left Blood Culture - Final No growth in 5 days. 09/12/20 06:58 Blood Culture (Wb) - Left Hand Blood Culture - Final No growth in 5 days. 09/12/20 13:30 Urine Catheter - Li Urine Culture - Final GNR Poss Pseudomonas sp GPC Poss Enterococcus sp Gram positive rosales D/C Instructions Discharge Diet: No restrictions Weight Bearing Status: Weight bearing as tolerated Meaningful Use Info Meaningful Use Diagnoses (Choose all that apply): None applicable Discharge Plan Admission Admit Date/Time: 09/12/20 09:09 Primary Reason for Your Visit: Pneumonia, urinary tract infection Attending Provider: Jay Riley Primary Care Provider: Dread Guallpa Consulting Providers: Joy Galvin ; Pa Morales ; Dolly Jimenez ; Andra Yoon am ; Katherin Tran ; Shraddha Randolph GIFTED TEACHER Instructions Additional Instructions / Restrictions: Follow-up with hospice as directed Discharge Orders/Prescriptions Prescriptions: New levofloxacin 750 mg tablet 750 mg PO DAILY Qty: 7 RF: 0 albuterol sulfate [ProAir HFA] 90 mcg/actuation HFA aerosol inhaler 2 puff inhalation Q6H PRN (Reason: shortness of breath or wheezing) Qty: 8.5 RF: 0 Continued carvedilol 3.125 MG tablet 3.125 mg PO BID RF: 0 gabapentin 100 MG capsule 300 mg PO TID RF: 0 Ensure Enlive 0.08 gram-1.5 kcal/mL Liquid 120 ml PO 4X/DAY Qty: 60 RF: 0 oxycodone 5 mg tablet 5 mg PO Q6H PRN (Reason: pain) 3 Days Qty: 12 RF: 0 morphine 15 mg Tablet Extended Release 15 mg PO Q12H RF: 0 Discontinued atorvastatin 40 MG tablet 40 mg PO QHS RF: 0 Referrals / Follow Up: Dread Guallpa MD [Primary Care Provider] - In 1 Week (APPOINTMENT WITH [facility] ON Saturday @ 1:40PM.) Dolly Jimenez MD [STAFF PHYSICIAN] - Within 1 Week Disposition Disposition (needs filled in before D/C Order can be placed): Hospice in Home Charges/Coding Visit Charges Inpatient E&M: 56507 Disch Hosp
== END 2020-09-14 18:28 | disposition hospice, home (50) | DRG 871 ==
LOC: ED 07:43 → MS3 08:35
PROVIDERS: Admitting Provider Internal Medicine; Emergency Provider Emergency Medicine; PCP Family Medicine; Visit Provider Internal Medicine
DX: A41.9 Sepsis, unspecified organism (principal); J18.9 Pneumonia, unspecified organism; E43 Unspecified severe protein-calorie malnutrition; J44.0 Chronic obstructive pulmonary disease with (acute) lower respiratory infection; R64 Cachexia; Z68.1 Body mass index [BMI] 19.9 or less, adult; E86.0 Dehydration; H91.93 Unspecified hearing loss, bilateral; G89.29 Other chronic pain; F17.210 Nicotine dependence, cigarettes, uncomplicated; R82.71 Bacteriuria; R31.9 Hematuria, unspecified; R29.6 Repeated falls; Z93.3 Colostomy status; Z51.5 Encounter for palliative care; Z79.899 Other long term (current) drug therapy; Z85.038 Personal history of other malignant neoplasm of large intestine; Z85.048 Personal history of other malignant neoplasm of rectum, rectosigmoid junction, and anus
CPT/HCPCS: 36415; 71045; 71046; 80053; 81001; 83605; 85025; 87040; 87086; 87088; 94640; 97162; 97166; 97802; 99285; 99406; J7030; J7040; A4216; J2405